=== PATIENT | female | born 1945 | race Caucasian/White ===

== ENCOUNTER 2016-12-12 19:30 | Observation (INO) | payer MEDICARE ==
[2016-12-12] MEDS ORDERED: NS 0.9% 1000 ML* 1,000 ML IV SCH ×2 (19:45→23:00)
--- NOTE | 2016-12-12 20:39 | RAD ---
INDICATION: Fever COMPARISON: May 06, 2007 TECHNIQUE: An AP portable view obtained at 2003 hours is submitted. FINDINGS: Bones/Soft Tissues: There are no acute bony findings. Cardiomediastinal: The cardiomediastinal silhouette is normal. Lungs: There are no infiltrates. Pleura: There are no pleural effusions. Other: None IMPRESSION: NO ACTIVE DISEASE.
[2016-12-12 20:57] LABS: Urine Bacteria 2+ (Absent); Urine Bilirubin Negative (Negative); Urine Glucose Negative (Negative); Urine Nitrite Positive (Negative)
[2016-12-12] MEDS ORDERED: Acetaminophen TAB* 325 MG PO ONE (21:40)
[2016-12-12] MEDS ORDERED: cefTRIAXone(*) 1 GM in NS 0.9% 50 ML* 50 ML IVPB ONE (21:41)
[2016-12-12 21:55] LABS: ALT 6 U/L (7-52); AST 10 U/L (13-39); Alkaline Phosphatase 39 U/L (34-104); Anion Gap 7 mmol/L (2-11); BUN/Creatinine Ratio 30.4 (8-20); Blood Urea Nitrogen 21 mg/dL (6-24); C Reactive Protein 29.93 mg/L (< 5.00); CO2 Carbon Dioxide 20 mmol/L (22-32); Chloride 107 mmol/L (101-111); Creatine Kinase 29 U/L (10-223); EGFR African American 107.9 (>60); EGFR Non-African American 83.9 (>60); Globulin 3.1 g/dL (2-4); Glucose 104 mg/dL (70-100); Lipase 24 U/L (11.0-82.0); Magnesium 1.6 mg/dL (1.9-2.7); Potassium 3.6 mmol/L (3.5-5.0); Sodium 134 mmol/L (133-145); Total Protein 6.1 g/dL (6.4-8.9)
[2016-12-12 22:07] LABS: Ammonia 38 mol/L (16-53)
[2016-12-12 22:11] LABS: B Type Natriuretic Peptide 46 pg/mL
[2016-12-12 22:15] LABS: Hematocrit 37 % (35-47); Hemoglobin 11.9 g/dl (12.0-16.0); Mean Corpuscular HGB Conc 32 g/dl (31-36); Mean Corpuscular Hemoglobin 30 pg (27-31); Mean Corpuscular Volume 93 fL (80-97); Mean Platelet Volume 9 um3 (7.4-10.4); Red Cell Distribution Width 15 % (10.5-15); White Blood Count 14.8 10^3/ul (3.5-10.8)
[2016-12-12 22:17] LABS: Acetaminophen < 15 mcg/mL
[2016-12-12 22:25] LABS: TSH (Thyroid Stimulating Horm) 0.46 mcIU/mL (0.34-5.60)
[2016-12-12] MEDS ORDERED: Albuterol 2.5 MG/3 ML NEB.SOL* (0.083%) INH PRN (22:51)
[2016-12-12] MEDS ORDERED: Acetaminophen TAB* 325 MG PO PRN (22:51)
[2016-12-12] MEDS ORDERED: Ondansetron INJ* 2 MG/ML VIAL IV PRN (22:52)
[2016-12-12] MEDS ORDERED: CMCS: Melatonin (NF) 3 MG TAB PO PRN (22:52)
[2016-12-12] MEDS ORDERED: Magnesium Sulfate 2 GM IV* 2 GM/50 ML BAG IVPB ONE (22:52)
[2016-12-12] MEDS ORDERED: Nicotine Inhaler* 10 MG AMP INH PRN (22:52)
[2016-12-12 23:14] LABS: Troponin I 0.01 ng/mL (<0.04)
--- NOTE | 2016-12-13 01:23 | ED ---
sujit Reno Timothy, scribed for Mike Zambrano MD on 12/12/16 at 2220 . Neurological HPI - HPI Summary HPI Summary: Naa Tilley is a 71 yo female presenting to [facility] with unwitnessed seizure at 1830 today, with a Hx of seizure. Her is present in room and states that he found her S/P seizure on the floor and Pt was disoriented and had knocked some pictures off the wall and was unable to stand. Her last seizure was 4-5 months ago. She denies missing any doses of her medication, but her states that she had not taken it this morning and was not as mobile as she usually is. He states that Pt was confused and said she had taken her medications this morning though she had not, and that Pt was also moderately confused yesterday, but was normal 12/10/16. Her gave her her daily medications before her seizure episode. Her states that she had not had a fever until today. Her notes some urinary frequency, but Pt denies any dysuria, diarrhea, rashes, RÍOS or other Sx. Her consulted her PCP before presenting to [facility] due to Pt inability to stand. Her MHx includes seizures, hysterectomy, arthritis. - History of Current Complaint Chief Complaint: EDSeizure Stated Complaint: CONVULSIONS Time Seen by Provider: 12/12/16 22:16 Last Known Well Date: 12/10/16 Hx Obtained From: Patient Onset/Duration: Sudden Onset, Resolved Timing: Intermittent Episodes Lasting: Onset Severity: Moderate Current Severity: Mild Seizure Severity: Moderate Number of Seizures: 1 Neurological Deficit Location: Generalized Pain Intensity: 0 Pain Scale Used: 0-10 Numeric Character: Confusion, Other: - seizure, syncope Episode Lasting: Seconds/Minutes Number of Episodes: 1 Syncope Context: Unwitnessed Frequency: Episodes x___ - 1, Episodes Lasting ____ (in Mins/Days/Weeks/Years) - several minutes Seizure Character: Generalized Associated Signs and Symptoms: Positive: Confusion, Fever - Allergy/Home Medications Allergies/Adverse Reactions: Allergies Allergy/AdvReac Type Severity Reaction Status Date / Time No Known Allergies Allergy Verified 06/12/16 15:22 PMH/Surg Hx/FS Hx/Imm Hx Endocrine/Hematology History: Denies: Hx Diabetes Cardiovascular History: Denies: Hx Hypertension, Hx Pacemaker/ICD History: Denies: Hx Renal Disease Musculoskeletal History: Reports: Hx Arthritis - FINGERS Denies: Hx Rheumatoid Arthritis, Hx Osteoporosis Sensory History: Reports: Hx Cataracts, Hx Contacts or Glasses - GLASSES Denies: Hx Hearing Aid Opthamlomology History: Reports: Hx Cataracts, Hx Contacts or Glasses - GLASSES Neurological History: Reports: Hx Seizures - HX OF LAST ABOUT 1 YEAR AGO Psychiatric History: Denies: Hx Panic Disorder - Cancer History Hx Chemotherapy: No Hx Radiation Therapy: No - Surgical History Surgery Procedure, Year, and Place: HYSTERECTOMY Hx Anesthesia Reactions: No Infectious Disease History: Denies: Traveled Outside the [place] in Last 30 Days - Social History Alcohol Use: None Substance Use Type: Reports: None Smoking Status (MU): Heavy Every Day Tobacco Smoker Amount Used/How Often: 1 1/2 PPD X 53 YEARS Have You Smoked in the Last Year: Yes Review of Systems Positive: Fever Eyes: Negative ENT: Negative Cardiovascular: Negative Respiratory: Negative Gastrointestinal: Negative Negative: Diarrhea Positive: frequency. Negative: dysuria Musculoskeletal: Negative Skin: Negative Negative: Rash Neurological: Other - seizure, difficulty ambulating, confusion Positive: Weakness - inability to stand, Syncope. Negative: Headache Psychological: Normal All Other Systems Reviewed And Are Negative: Yes Physical Exam Triage Information Reviewed: Yes Vital Signs On Initial Exam: Initial Vitals BP 134/68 12/12/16 19:40 Vital Signs Reviewed: Yes Appearance: Positive: No Pain Distress, Well-Nourished, Ill-Appearing - mildly Skin: Positive: Warm, Skin Color Reflects Adequate Perfusion, Dry Head/Face: Positive: Normal Head/Face Inspection Eyes: Positive: EOMI, CRISTHIAN ENT: Positive: Normal ENT inspection, TMs normal Neck: Positive: Supple, Nontender Respiratory/Lung Sounds: Positive: Breath Sounds Present, Rhonchi - mild Cardiovascular: Positive: Tachycardia Abdomen Description: Positive: Nontender, Soft Bowel Sounds: Positive: Present Musculoskeletal: Positive: Normal, Strength/ROM Intact Neurological: Positive: Normal, Sensory/Motor Intact, Alert, Oriented to Person Place, Time, Other - no focal deficits, however Pt is mildly confused.. Negative: Focal Deficit @ Psychiatric: Positive: Affect/Mood Appropriate Diagnostics - Vital Signs Vital Signs Temp Pulse Resp BP Pulse Ox 12/12/16 20:19 104 F 12/12/16 20:00 113 20 129/66 97 12/12/16 19:42 116 96 12/12/16 19:40 134/68 - Laboratory Lab Results: Lab Results 12/12/16 12/12/16 12/12/16 Range/Units 20:42 21:30 21:30 INR (Anticoag Therapy) 0.96 (0.89-1.11) APTT 25.3 L (26.0-36.3) seconds Sodium 134 (133-145) mmol/L Potassium 3.6 (3.5-5.0) mmol/L Chloride 107 (101-111) mmol/L Carbon Dioxide 20 L (22-32) mmol/L Anion Gap 7 (2-11) mmol/L BUN 21 (6-24) mg/dL Creatinine 0.69 (0.51-0.95) mg/dL Est GFR ( Amer) 107.9 (>60) Est GFR (Non-Af Amer) 83.9 (>60) BUN/Creatinine Ratio 30.4 H (8-20) Glucose 104 H (70-100) mg/dL Lactic Acid (0.5-2.0) mmol/L Calcium 9.0 (8.6-10.3) mg/dL Magnesium 1.6 L (1.9-2.7) mg/dL Total Bilirubin 0.20 (0.2-1.0) mg/dL AST 10 L (13-39) U/L ALT 6 L (7-52) U/L Alkaline Phosphatase 39 (34-104) U/L Ammonia (16-53) mol/L Total Creatine Kinase 29 (10-223) U/L CK-MB (CK-2) Pending Troponin I Pending C-Reactive Protein 29.93 H (< 5.00) mg/L B-Natriuretic Peptide ( - 100) pg/mL Total Protein 6.1 L (6.4-8.9) g/dL Albumin 3.0 L (3.2-5.2) g/dL Globulin 3.1 (2-4) g/dL Albumin/Globulin Ratio 1.0 (1-3) Lipase 24 (11.0-82.0) U/L TSH Pending Urine Color Yellow Urine Appearance Cloudy Urine pH 5.0 (5-9) Ur Specific [place] 1.015 (1.010-1.030) Urine Protein 1+(30 mg/dl) H (Negative) Urine Ketones Negative (Negative) Urine Blood 2+ H (Negative) Urine Nitrate Positive H (Negative) Urine Bilirubin Negative (Negative) Urine Urobilinogen Negative (Negative) Ur Leukocyte Esterase 3+ H (Negative) Urine WBC (Auto) 3+(>20/hpf) H (Absent) Urine RBC (Auto) 3+(>10/hpf) H (Absent) Ur Squamous Epith Cells Present H (Absent) Urine Bacteria 2+ H (Absent) Urine Glucose Negative (Negative) Acetaminophen Pending Valproic Acid Pending 12/12/16 12/12/16 Range/Units 21:30 21:30 INR (Anticoag Therapy) (0.89-1.11) APTT (26.0-36.3) seconds Sodium (133-145) mmol/L Potassium (3.5-5.0) mmol/L Chloride (101-111) mmol/L Carbon Dioxide (22-32) mmol/L Anion Gap (2-11) mmol/L BUN (6-24) mg/dL Creatinine (0.51-0.95) mg/dL Est GFR ( Amer) (>60) Est GFR (Non-Af Amer) (>60) BUN/Creatinine Ratio (8-20) Glucose (70-100) mg/dL Lactic Acid 0.5 (0.5-2.0) mmol/L Calcium (8.6-10.3) mg/dL Magnesium (1.9-2.7) mg/dL Total Bilirubin (0.2-1.0) mg/dL AST (13-39) U/L ALT (7-52) U/L Alkaline Phosphatase (34-104) U/L Ammonia 38 (16-53) mol/L Total Creatine Kinase (10-223) U/L CK-MB (CK-2) Troponin I C-Reactive Protein (< 5.00) mg/L B-Natriuretic Peptide 46 ( - 100) pg/mL Total Protein (6.4-8.9) g/dL Albumin (3.2-5.2) g/dL Globulin (2-4) g/dL Albumin/Globulin Ratio (1-3) Lipase (11.0-82.0) U/L TSH Urine Color Urine Appearance Urine pH (5-9) Ur Specific [place] (1.010-1.030) Urine Protein (Negative) Urine Ketones (Negative) Urine Blood (Negative) Urine Nitrate (Negative) Urine Bilirubin (Negative) Urine Urobilinogen (Negative) Ur Leukocyte Esterase (Negative) Urine WBC (Auto) (Absent) Urine RBC (Auto) (Absent) Ur Squamous Epith Cells (Absent) Urine Bacteria (Absent) Urine Glucose (Negative) Acetaminophen Valproic Acid Result Diagrams: 12/12/16 22:10 12/12/16 21:30 Lab Statement: Any lab studies that have been ordered have been reviewed, and results considered in the medical decision making process. - Radiology CXR Xray Interpretation: No Acute Changes - IMPRESSION: NO ACTIVE DISEASE. Radiology Interpretation Completed By: Radiologist - EKG 2007 Cardiac Rate: Tachycardia - 109 BPM EKG Interpretation: Sinus tachycardia @109 BPM, flipped T-waves in III, AVF, V4- V6 no ectopy Course/Dx - Course Assessment/Plan: Naa Tilley is a 71 yo female presenting to [facility] with unwitnessed seizure at 1830 today accompanied by confusion and fever. Her medication list is reviewed this visit. In the ED course she received ceftriaxone, tylenol, and IV fluids. Her EKG sinus tachycardia and flipped T- waves in III, AVF, and V4-V6. Her CXR suggests no active disease. After clinical examination and review of her lab and imaging studies, as well as discussion with Dr. Ibarra, she will be admitted to [facility] for further observation, evaluation, and treatment. NO CRITICAL CARE TIME. ADMIT HOSPITALIST STABLE. - Diagnoses Provider Diagnoses: UTI (urinary tract infection), Seizure - Physician Notifications Discussed Care Of Patient With: Kingsley Ibarra - Discussed Pt condition, accepts Pt for admission Time Discussed With Above Provider: 22:39 Instructed by Provider To: Admit As Inpatient Discharge - Discharge Plan Condition: Stable Disposition: ADMITTED TO [facility] The documentation as recorded by the sujit faustin Timothy accurately reflects the service I personally performed and the decisions made by me, Mike Zambrano MD.
[2016-12-13] MEDS ORDERED: Mouth Piece, Nicotine* 1 EACH CARTRIDGE INH ONE (03:00)
--- NOTE | 2016-12-13 05:36 | HP ---
H&P (Free Text) History and Physical: PCP: Julio Nguyễn MD Date/Time of Evaluation: 12/12/2016 2245 CC: increased confusion HPI: Mrs Tilley is a 71YO female HX dementia who typically functions well independently. This AM her and a friend noticed she seemed "a bit off" clarified to mean mildly increased confusion, but otherwise not issues. Sometime after noon he went to work in the garage and returned to find her on the floor generally weak and unable to get up. She did not recall falling, how she arrived there, and was more confused, but had no complaints of pain or obvious injuries. Her called her PCP who advised ED evaluation. PMedHx seizure disorder HX peritonitis 2nd uterine perforation w/ IUD HLD dementia osteoporosis Ambulatory Orders Alendronate Sodium [Fosamax-] 70 mg PO WEEKLY 05/25/15 Atorvastatin* [Lipitor*] 10 mg PO DAILY 05/25/15 Calcium Carbonate-Vitamin D [Calcium 600 + D] 1 tab PO 05/25/15 Divalproex Sodium [Depakote] 2 tab PO QPM 05/25/15 Divalproex Sodium [Depakote] 250 mg PO QAM 05/25/15 Donepezil TAB* [Aricept TAB*] 5 mg PO 05/25/15 Ibuprofen TAB* [Motrin TAB*] 800 mg PO BID PRN 05/25/15 Multi Complete 05/25/15 Multiple Vitamins W/ Minerals [Ocuvite [facility] Formul] 1 cap PO DAILY Allergies No Known Allergies Allergy (Verified 06/12/16 15:22) PSurgHx appendectomy SocHx: 1PPD cigarettes w/ ~50PYHX, no alcohol or recreational drugs; lives with her ; full, needs revisiting FamHx: unobtainable ROS: as above, otherwise reviewed and all were negative Constitutional: NAD, normally developed, well-nourished elderly white female vitals: Vital Signs Temp 36.3 C 12/13/16 02:18 Pulse 85 12/13/16 02:18 Resp 16 12/13/16 02:18 BP 124/61 12/13/16 02:18 Pulse Ox 96 12/13/16 02:18 Intake & Output 12/12/16 12/12/16 12/13/16 11:59 23:59 11:59 Intake Total 100 Output Total 150 Balance 100 -150 Weight 56.926 kg Intake: IV Fluids 100 Output: Urine 150 HEENM: atraumatic; sclera/conjunctiva: non-icteric/clear; hearing: clinically mildly decreased; oropharynx: clear, mucosa tacky Neck: soft tissue: no nuchal rigidity; thyroid: normal Pulmonary: clear to auscultation bilaterally, good aeration, no accessory muscle use CV: RR/RR, normal S1S2, no carotid bruit, no jugular venous distention, 2+ B DP/ PT, no edema Abdominal: soft, non-distended, non-tender, no rebound/guarding/rigidity, normoactive bowel sounds, no hepatosplenomegaly or masses, no costovertebral angle tenderness Musculoskeletal: general: grossly intact; gait: stable Integumental: normal appearance and texture of exposed skin Psychiatric orientation: AA&O to PPS affect: calm mood: cooperative eye contact: fair to poor content: unreliable responses: timely insight: fair to poor Testing: Lab Results 12/12/16 12/12/16 12/12/16 Range/Units 20:42 21:30 21:30 WBC (3.5-10.8) 10^3/ul RBC (4.0-5.4) 10^6/ul Hgb (12.0-16.0) g/dl Hct (35-47) % MCV (80-97) fL MCH (27-31) pg MCHC (31-36) g/dl RDW (10.5-15) % Plt Count (150-450) 10^3/ul MPV (7.4-10.4) um3 Neut % (Auto) (38-83) % Lymph % (Auto) (25-47) % [place] % (Auto) (1-9) % Eos % (Auto) (0-6) % Baso % (Auto) (0-2) % Absolute Neuts (auto) (1.5-7.7) 10^3/ul Absolute Lymphs (auto) (1.0-4.8) 10^3/ul Absolute Monos (auto) (0-0.8) 10^3/ul Absolute Eos (auto) (0-0.6) 10^3/ul Absolute Basos (auto) (0-0.2) 10^3/ul Absolute Nucleated RBC 10^3/ul Nucleated RBC % INR (Anticoag Therapy) 0.96 (0.89-1.11) APTT 25.3 L (26.0-36.3) seconds Sodium 134 (133-145) mmol/L Potassium 3.6 (3.5-5.0) mmol/L Chloride 107 (101-111) mmol/L Carbon Dioxide 20 L (22-32) mmol/L Anion Gap 7 (2-11) mmol/L BUN 21 (6-24) mg/dL Creatinine 0.69 (0.51-0.95) mg/dL Est GFR ( Amer) 107.9 (>60) Est GFR (Non-Af Amer) 83.9 (>60) BUN/Creatinine Ratio 30.4 H (8-20) Glucose 104 H (70-100) mg/dL Lactic Acid (0.5-2.0) mmol/L Calcium 9.0 (8.6-10.3) mg/dL Magnesium 1.6 L (1.9-2.7) mg/dL Total Bilirubin 0.20 (0.2-1.0) mg/dL AST 10 L (13-39) U/L ALT 6 L (7-52) U/L Alkaline Phosphatase 39 (34-104) U/L Ammonia (16-53) mol/L Total Creatine Kinase 29 (10-223) U/L CK-MB (CK-2) 0.6 (0.6-6.3) ng/mL Troponin I 0.01 (<0.04) ng/mL C-Reactive Protein 29.93 H (< 5.00) mg/L B-Natriuretic Peptide ( - 100) pg/mL Total Protein 6.1 L (6.4-8.9) g/dL Albumin 3.0 L (3.2-5.2) g/dL Globulin 3.1 (2-4) g/dL Albumin/Globulin Ratio 1.0 (1-3) Lipase 24 (11.0-82.0) U/L Procalcitonin (<0.6) ng/mL TSH 0.46 (0.34-5.60) mcIU/mL Urine Color Yellow Urine Appearance Cloudy Urine pH 5.0 (5-9) Ur Specific [place] 1.015 (1.010-1.030) Urine Protein 1+(30 mg/dl) H (Negative) Urine Ketones Negative (Negative) Urine Blood 2+ H (Negative) Urine Nitrate Positive H (Negative) Urine Bilirubin Negative (Negative) Urine Urobilinogen Negative (Negative) Ur Leukocyte Esterase 3+ H (Negative) Urine WBC (Auto) 3+(>20/hpf) H (Absent) Urine RBC (Auto) 3+(>10/hpf) H (Absent) Ur Squamous Epith Cells Present H (Absent) Urine Bacteria 2+ H (Absent) Urine Glucose Negative (Negative) Acetaminophen < 15 mcg/mL Valproic Acid 67.0 (50-100) mcg/mL 12/12/16 12/12/16 12/12/16 Range/Units 21:30 21:30 21:30 WBC (3.5-10.8) 10^3/ul RBC (4.0-5.4) 10^6/ul Hgb (12.0-16.0) g/dl Hct (35-47) % MCV (80-97) fL MCH (27-31) pg MCHC (31-36) g/dl RDW (10.5-15) % Plt Count (150-450) 10^3/ul MPV (7.4-10.4) um3 Neut % (Auto) (38-83) % Lymph % (Auto) (25-47) % [place] % (Auto) (1-9) % Eos % (Auto) (0-6) % Baso % (Auto) (0-2) % Absolute Neuts (auto) (1.5-7.7) 10^3/ul Absolute Lymphs (auto) (1.0-4.8) 10^3/ul Absolute Monos (auto) (0-0.8) 10^3/ul Absolute Eos (auto) (0-0.6) 10^3/ul Absolute Basos (auto) (0-0.2) 10^3/ul Absolute Nucleated RBC 10^3/ul Nucleated RBC % INR (Anticoag Therapy) (0.89-1.11) APTT (26.0-36.3) seconds Sodium (133-145) mmol/L Potassium (3.5-5.0) mmol/L Chloride (101-111) mmol/L Carbon Dioxide (22-32) mmol/L Anion Gap (2-11) mmol/L BUN (6-24) mg/dL Creatinine (0.51-0.95) mg/dL Est GFR ( Amer) (>60) Est GFR (Non-Af Amer) (>60) BUN/Creatinine Ratio (8-20) Glucose (70-100) mg/dL Lactic Acid 0.5 (0.5-2.0) mmol/L Calcium (8.6-10.3) mg/dL Magnesium (1.9-2.7) mg/dL Total Bilirubin (0.2-1.0) mg/dL AST (13-39) U/L ALT (7-52) U/L Alkaline Phosphatase (34-104) U/L Ammonia 38 (16-53) mol/L Total Creatine Kinase (10-223) U/L CK-MB (CK-2) (0.6-6.3) ng/mL Troponin I (<0.04) ng/mL C-Reactive Protein (< 5.00) mg/L B-Natriuretic Peptide 46 ( - 100) pg/mL Total Protein (6.4-8.9) g/dL Albumin (3.2-5.2) g/dL Globulin (2-4) g/dL Albumin/Globulin Ratio (1-3) Lipase (11.0-82.0) U/L Procalcitonin < 0.1 (<0.6) ng/mL TSH (0.34-5.60) mcIU/mL Urine Color Urine Appearance Urine pH (5-9) Ur Specific [place] (1.010-1.030) Urine Protein (Negative) Urine Ketones (Negative) Urine Blood (Negative) Urine Nitrate (Negative) Urine Bilirubin (Negative) Urine Urobilinogen (Negative) Ur Leukocyte Esterase (Negative) Urine WBC (Auto) (Absent) Urine RBC (Auto) (Absent) Ur Squamous Epith Cells (Absent) Urine Bacteria (Absent) Urine Glucose (Negative) Acetaminophen mcg/mL Valproic Acid (50-100) mcg/mL 12/12/16 Range/Units 22:10 WBC 14.8 H (3.5-10.8) 10^3/ul RBC 4.00 (4.0-5.4) 10^6/ul Hgb 11.9 L (12.0-16.0) g/dl Hct 37 (35-47) % MCV 93 (80-97) fL MCH 30 (27-31) pg MCHC 32 (31-36) g/dl RDW 15 (10.5-15) % Plt Count 246 (150-450) 10^3/ul MPV 9 (7.4-10.4) um3 Neut % (Auto) 78.5 (38-83) % Lymph % (Auto) 9.2 L (25-47) % Greene % (Auto) 12.0 H (1-9) % Eos % (Auto) 0 (0-6) % Baso % (Auto) 0.3 (0-2) % Absolute Neuts (auto) 11.6 H (1.5-7.7) 10^3/ul Absolute Lymphs (auto) 1.4 (1.0-4.8) 10^3/ul Absolute Monos (auto) 1.8 H (0-0.8) 10^3/ul Absolute Eos (auto) 0 (0-0.6) 10^3/ul Absolute Basos (auto) 0 (0-0.2) 10^3/ul Absolute Nucleated RBC 0.01 10^3/ul Nucleated RBC % 0.1 INR (Anticoag Therapy) (0.89-1.11) APTT (26.0-36.3) seconds Sodium (133-145) mmol/L Potassium (3.5-5.0) mmol/L Chloride (101-111) mmol/L Carbon Dioxide (22-32) mmol/L Anion Gap (2-11) mmol/L BUN (6-24) mg/dL Creatinine (0.51-0.95) mg/dL Est GFR ( Amer) (>60) Est GFR (Non-Af Amer) (>60) BUN/Creatinine Ratio (8-20) Glucose (70-100) mg/dL Lactic Acid (0.5-2.0) mmol/L Calcium (8.6-10.3) mg/dL Magnesium (1.9-2.7) mg/dL Total Bilirubin (0.2-1.0) mg/dL AST (13-39) U/L ALT (7-52) U/L Alkaline Phosphatase (34-104) U/L Ammonia (16-53) mol/L Total Creatine Kinase (10-223) U/L CK-MB (CK-2) (0.6-6.3) ng/mL Troponin I (<0.04) ng/mL C-Reactive Protein (< 5.00) mg/L B-Natriuretic Peptide ( - 100) pg/mL Total Protein (6.4-8.9) g/dL Albumin (3.2-5.2) g/dL Globulin (2-4) g/dL Albumin/Globulin Ratio (1-3) Lipase (11.0-82.0) U/L Procalcitonin (<0.6) ng/mL TSH (0.34-5.60) mcIU/mL Urine Color Urine Appearance Urine pH (5-9) Ur Specific [place] (1.010-1.030) Urine Protein (Negative) Urine Ketones (Negative) Urine Blood (Negative) Urine Nitrate (Negative) Urine Bilirubin (Negative) Urine Urobilinogen (Negative) Ur Leukocyte Esterase (Negative) Urine WBC (Auto) (Absent) Urine RBC (Auto) (Absent) Ur Squamous Epith Cells (Absent) Urine Bacteria (Absent) Urine Glucose (Negative) Acetaminophen mcg/mL Valproic Acid (50-100) mcg/mL ECG, personally reviewed: sinus tachycardia rate 109, diffuse non-specific ST-T changes CXR, personally reviewed: IMPRESSION: NO ACTIVE DISEASE. Impression: 71F presenting with increased confusion and fall ? syncope vs seizure DIAGNOSIS & PLAN Primary confusion 2nd UTI : IV ceftriaxone : blood & urine CXs : IVFs : supportive care suspect seizure vs doubt syncope : HX seizure disorder, last seizure ~4 months ago : lowered seizure threshold 2nd fever & infection : divalproex level therapeutic, continue : seizure precautions Secondary tobacco use disorder : suspect undiagnosed COPD : albuterol nebs PRN : mometasone/formoterol : tiotropium HLD : continue atorvastatin dementia : continue donepezil osteoporosis : hold alendronate for now Admission Rational: inpatient for UTI & AMS, ? seizure vs syncope; at high risk of rapid decompensation in outpatient setting DVTp: SCDs Code Status: full, needs revisiting HCP:
[2016-12-13] MEDS ORDERED: Omeprazole CAP* 20 MG PO SCH (06:00)
[2016-12-13 06:33] LABS: Hematocrit 32 % (35-47); Hemoglobin 10.7 g/dl (12.0-16.0); Mean Corpuscular HGB Conc 33 g/dl (31-36); Mean Corpuscular Hemoglobin 31 pg (27-31); Mean Corpuscular Volume 92 fL (80-97); Mean Platelet Volume 9 um3 (7.4-10.4); Red Blood Count 3.49 10^6/ul (4.0-5.4); Red Cell Distribution Width 14 % (10.5-15); White Blood Count 10.5 10^3/ul (3.5-10.8)
[2016-12-13 06:48] LABS: BUN/Creatinine Ratio 25.8 (8-20); Calcium 8.5 mg/dL (8.6-10.3); EGFR Non-African American 94.9 (>60); Potassium 3.3 mmol/L (3.5-5.0)
[2016-12-13 08:33] LABS: Magnesium 2.5 mg/dL (1.9-2.7)
[2016-12-13] MEDS ORDERED: Spiriva Inhaler DEVICE* 1 EACH DEVICE INH ONE (09:00)
[2016-12-13] MEDS ORDERED: Tiotropium CAP.INH* CAP.INH/18 MCG INH SCH (09:00)
[2016-12-13] MEDS ORDERED: Mometasone/Formoter 200/5 MDI INH SCH (09:00)
[2016-12-13] MEDS ORDERED: Docusate CAP* 100 MG PO SCH (09:00)
--- NOTE | 2016-12-13 10:16 | PN ---
Progress Note - Progress Note SOAP: Subjective: [This is a 71 yo white female with PMH of seizure disorder, dementia, 50 pack year smoking, hyperlipidemia, and osteoporosis that presented to ER last night after being found on the floor in her home by her with weakness and inability to get off the floor. Patient denies today remembering how she fell or being found by her and is not sure how long she was laying there. She complains of a diffuse RÍOS that has been off and on since admission but is relieved with Tylenol. Patient states that she has been experiencing some intermittent chest pain that is unrelated to exertion and does not radiate. Patient admits to some confusion. After speaking with patients , patient was mildly confused yesterday morning which was significantly worse last night after being found on the floor. He believes that today she is back to her baseline. She denies pain elsewhere, palpitations, SOB, sweats, chills, n/v/d/c , changes in vision or hearing. After conversation with her , he states that he brought her medications in this morning and gave them to her. He seemed unsure about which ones were given as he did not bring in medication bottles. It sounds like her gave her regular home doses of ibuprofen, aricept, lipitor, depakote, and anacin this morning and was unsure about her fosamax. After speaking with nursing staff, patient was not scheduled any morning medication except colace which she refused , so patient did not receive any duplicate medications. Talked with about the hospital providing medication to Mrs. Tilley and to not bring in any other home medications. He agreed to be compliant. ] Objective: Active medications: Acetaminophen (Tylenol Tab*) 650 mg PO Q6H PRN PRN Reason: FEVER/PAIN Albuterol (Ventolin 2.5 Mg/3 Ml Neb.Tina*) 2.5 mg INH Q2H PRN PRN Reason: SOB/WHEEZING Docusate Sodium (Colace Cap*) 200 mg PO BID PENDING SALE TO [facility] Last Admin: 12/13/16 09:39 Dose: Not Given Sodium Chloride (Ns 0.9% 1000 Ml*) 1,000 mls @ 125 mls/hr IV PER RATE PENDING SALE TO [facility] Last Admin: 12/13/16 02:29 Dose: 125 mls/hr Ceftriaxone Sodium 1,000 mg/ (Sodium Chloride) 50 mls @ 200 mls/hr IVPB Q24H PENDING SALE TO [facility] Melatonin (Melatonin (Nf)) 3 mg PO BEDTIME PRN; Protocol PRN Reason: Sleep Mometasone Furoate/Formoterol Fumar (Dulera 200/5 Mdi*) 2 puff INH BID PENDING SALE TO [facility] Last Admin: 12/13/16 09:51 Dose: Not Given Nicotine (Nicotine Inhaler*) 10 mg INH Q2H PRN PRN Reason: CRAVING Omeprazole (Prilosec Cap*) 20 mg PO DAILY@0600 PENDING SALE TO [facility] Last Admin: 12/13/16 06:51 Dose: Not Given Ondansetron HCl (Zofran Inj*) 4 mg IV Q6H PRN PRN Reason: NAUSEA Tiotropium [place] (Spiriva Cap.Inh*) 1 cap INH DAILY PENDING SALE TO [facility] Last Admin: 12/13/16 09:51 Dose: Not Given Lipitor 10 mg PO daily Depakote 250 mg two tablets in the AM and two tablets qhs Aricept 5 mg PO daily Allergies: NKDA Vital Signs Temp Pulse Resp BP Pulse Ox 97.4 F 77 16 124/61 93 12/13/16 02:18 12/13/16 09:50 12/13/16 09:50 12/13/16 02:18 12/13/16 09:50 General: Patient is alert and oriented X3 elderly white female in NAD HEENT: atraumatic, normocephalic. Mucus membranes mildly dry. Lungs: Mild wheezing noted across lung wu, no crackles or rhonchi. Heart: RRR, No murmurs, rubs, or gallops Abdomen: Normoactive bowels sounds Extremities: No edema, Pedal pulses are 2+ bilaterally Neuro: Alert and oriented X3 WBC 10.5 10^3/ul (3.5-10.8) 12/13/16 06:18 RBC 3.49 10^6/ul (4.0-5.4) L 12/13/16 06:18 Hgb 10.7 g/dl (12.0-16.0) L 12/13/16 06:18 Hct 32 % (35-47) L 12/13/16 06:18 MCV 92 fL (80-97) 12/13/16 06:18 MCH 31 pg (27-31) 12/13/16 06:18 MCHC 33 g/dl (31-36) 12/13/16 06:18 RDW 14 % (10.5-15) 12/13/16 06:18 Plt Count 227 10^3/ul (150-450) 12/13/16 06:18 MPV 9 um3 (7.4-10.4) 12/13/16 06:18 Neut % (Auto) 73.3 % (38-83) 12/13/16 06:18 Lymph % (Auto) 13.4 % (25-47) L 12/13/16 06:18 Kay % (Auto) 12.9 % (1-9) H 12/13/16 06:18 Eos % (Auto) 0.1 % (0-6) 12/13/16 06:18 Baso % (Auto) 0.3 % (0-2) 12/13/16 06:18 Absolute Neuts (auto) 7.7 10^3/ul (1.5-7.7) 12/13/16 06:18 Absolute Lymphs (auto) 1.4 10^3/ul (1.0-4.8) 12/13/16 06:18 Absolute Monos (auto) 1.4 10^3/ul (0-0.8) H 12/13/16 06:18 Absolute Eos (auto) 0 10^3/ul (0-0.6) 12/13/16 06:18 Absolute Basos (auto) 0 10^3/ul (0-0.2) 12/13/16 06:18 Absolute Nucleated RBC 0 10^3/ul 12/13/16 06:18 Nucleated RBC % 0 12/13/16 06:18 INR (Anticoag Therapy) 0.96 (0.89-1.11) 12/12/16 21:30 APTT 25.3 seconds (26.0-36.3) L 12/12/16 21:30 Sodium 137 mmol/L (133-145) 12/13/16 06:18 Potassium 3.3 mmol/L (3.5-5.0) L 12/13/16 06:18 Chloride 109 mmol/L (101-111) 12/13/16 06:18 Carbon Dioxide 23 mmol/L (22-32) 12/13/16 06:18 Anion Gap 5 mmol/L (2-11) 12/13/16 06:18 BUN 16 mg/dL (6-24) 12/13/16 06:18 Creatinine 0.62 mg/dL (0.51-0.95) 12/13/16 06:18 Est GFR ( Amer) 122.0 (>60) 12/13/16 06:18 Est GFR (Non-Af Amer) 94.9 (>60) 12/13/16 06:18 BUN/Creatinine Ratio 25.8 (8-20) H 12/13/16 06:18 Glucose 93 mg/dL (70-100) 12/13/16 06:18 Lactic Acid 0.5 mmol/L (0.5-2.0) 12/12/16 21:30 Calcium 8.5 mg/dL (8.6-10.3) L 12/13/16 06:18 Magnesium 2.5 mg/dL (1.9-2.7) 12/13/16 06:18 Total Bilirubin 0.20 mg/dL (0.2-1.0) 12/12/16 21:30 AST 10 U/L (13-39) L 12/12/16 21:30 ALT 6 U/L (7-52) L 12/12/16 21:30 Alkaline Phosphatase 39 U/L (34-104) 12/12/16 21:30 Ammonia 38 mol/L (16-53) 12/12/16 21:30 Total Creatine Kinase 29 U/L (10-223) 12/12/16 21:30 CK-MB (CK-2) 0.6 ng/mL (0.6-6.3) 12/12/16 21:30 Troponin I 0.01 ng/mL (<0.04) 12/12/16 21:30 C-Reactive Protein 29.93 mg/L (< 5.00) H 12/12/16 21:30 B-Natriuretic Peptide 46 pg/mL (-100) 12/12/16 21:30 Total Protein 6.1 g/dL (6.4-8.9) L 12/12/16 21:30 Albumin 3.0 g/dL (3.2-5.2) L 12/12/16 21:30 Globulin 3.1 g/dL (2-4) 12/12/16 21:30 Albumin/Globulin Ratio 1.0 (1-3) 12/12/16 21:30 Lipase 24 U/L (11.0-82.0) 12/12/16 21:30 Procalcitonin < 0.1 ng/mL (<0.6) 12/12/16 21:30 TSH 0.46 mcIU/mL (0.34-5.60) 12/12/16 21:30 Urine Color Yellow 12/12/16 20:42 Urine Appearance Cloudy 12/12/16 20:42 Urine pH 5.0 (5-9) 12/12/16 20:42 Ur Specific [place] 1.015 (1.010-1.030) 12/12/16 20:42 Urine Protein 1+(30 mg/dl) (Negative) H 12/12/16 20:42 Urine Ketones Negative (Negative) 12/12/16 20:42 Urine Blood 2+ (Negative) H 12/12/16 20:42 Urine Nitrate Positive (Negative) H 12/12/16 20:42 Urine Bilirubin Negative (Negative) 12/12/16 20:42 Urine Urobilinogen Negative (Negative) 12/12/16 20:42 Ur Leukocyte Esterase 3+ (Negative) H 12/12/16 20:42 Urine WBC (Auto) 3+(>20/hpf) (Absent) H 12/12/16 20:42 Urine RBC (Auto) 3+(>10/hpf) (Absent) H 12/12/16 20:42 Ur Squamous Epith Cells Present (Absent) H 12/12/16 20:42 Urine Bacteria 2+ (Absent) H 12/12/16 20:42 Urine Glucose Negative (Negative) 12/12/16 20:42 Acetaminophen < 15 mcg/mL 12/12/16 21:30 Valproic Acid 67.0 mcg/mL (50-100) 12/12/16 21:30 CXR: No active disease EKG: Sinus tachycardia ] Assessment/Plan: 1) Confusion secondary to UTI: Continue IV ceftriaxone. Still awaiting results from blood and urine cultures. Continue IV fluids, patient denies any urinary symptoms at this time. 2) Seizure Disorder: Depakote level is therapeutic at 67. Continue with Depakote and patient is on seizure precautions. 3) Hypokelemia: Magnesium sulfate 2gm given for correction. 4) Tobacco use disorder: Suspect underlying undiagnosed COPD patient has 50 pack year smoking and still currently smokes about a pack a day. Continue with Dulera, albuterol nebs PRN, and spiriva. 5) Hyperlipidemia: Continue lipitor. 6) Dementia: Continue Aricept. 7) Osteoporosis: Hold Fosamax. 8) Code Status: Full code 9) Health care proxy:
[2016-12-13 10:27] VITALS: BP 103/64
[2016-12-13] MEDS ORDERED: Potassium Chlor TAB* 20 MEQ TAB.ER PO ONE (11:30)
--- NOTE | 2016-12-13 12:55 | DS ---
CC: Dr. Mili Nguyễn * DATE OF ADMISSION: 12/12/2016. DATE OF DISCHARGE: 12/13/2016. PRIMARY CARE PROVIDER: Dr. Mili Nguyễn. DISCHARGING PROVIDER: ANNETTE Batista. SUPERVISING PHYSICIAN: Dr. Loreta Laureano * (dictated by ANNETTE Batista). PRIMARY DISCHARGE DIAGNOSIS: Urinary tract infection causing acute encephalopathy which has since resolved. SECONDARY DISCHARGE DIAGNOSES: 1. Seizure disorder. 2. Tobacco use disorder. 3. Dementia. 4. Hyperlipidemia. DISCHARGE MEDICATIONS: 1. Atorvastatin 10 mg p.o. daily. 2. Depakote 500 mg p.o. twice daily. 3. Bactrim DS one tablet p.o. twice daily times 4 days. Medication changes: Bactrim times 4 days. HOSPITAL IMAGING: Chest x-ray shows no acute process. HOSPITAL COURSE: This is a 71-year-old female with mild dementia at baseline, as well as a seizure disorder and hyperlipidemia who presented to the emergency department with confusion and weakness, who was febrile at the time of reaching the emergency department with evidence of a urinary tract infection and associated leukocytosis. The patient lives at home with her . They were at home together and he went out into the garage and when he came back found her on the floor and was quite weak and lethargic. He brought her to the emergency department for evaluation. Initial white blood cell count was 14,800 with a temperature of 104 degrees Fahrenheit. Urine analysis is suggestive of infection with positive nitrates, leuk esterase and white blood cells. The patient was empirically started on Ceftriaxone. She remained afebrile over night and her mental status returned to baseline in the morning per her 's report. The patient states that her weakness has resolved. She remembers very little from yesterday afternoon, but did not sustain any injuries as a part of her fall. Considered seizure as a possibility for her fall. Her lactic acid was 0.5 at the time of admission making this less likely with an obvious source of infection. Her valproic acid level was measured at the time of admission and was therapeutic. There was some concern as to whether the patient may have undiagnosed COPD given her long history of smoking, but the patient was not significantly hypoxic and had a normal lung exam. I do not see an indication to treat at this time. The patient and her are quite anxious to get home. Cultures have not returned at the time of discharge. Her white blood cell count has returned to normal and she was afebrile overnight. Will plan to discharge with empiric Bactrim. DISPOSITION: The patient is being discharged to home where she lives with her . Recommend four days of Bactrim for empiric treatment of urinary tract infection. As mentioned above, urine and blood cultures are still pending at the time of discharge. Follow-up on final culture and sensitivity results, especially from her urine is necessary to ensure appropriate treatment. Recommend follow-up with primary care provider within a week of discharge. ANNETTE BATISTA [id number]/[facility] #: [id number] MTDJordan
--- NOTE | 2016-12-13 13:04 | DS ---
DOA: 12/13/2016 DOD: 12/13/2016 Care Team: Admitting provider: Dr. Kingsley Ibarra Attending Provider: Adrian Sr PCP: Dr. Mili Nugyễn Discharge Dx: 1) Confusion secondary to UTI Secondary Dx: 1) Seizure disorder 2) Tobacco use disorder: likely undiagnosed COPD as patient has 50 year pack year smoking and currently still an active smoker. 3) Hyperlipidemia 4) Dementia 5) Osteoporosis Discharge medications: Lipitor 10 mg PO daily Depakote 250 mg two tablets in the AM and two tablets qhs Aricept 5 mg PO daily Fosamax 70 mg PO Q week Motrin 800 mg BID as needed Calcium Carbonate PO 1 tablet daily Multivitamin Bactrim 160 mg PO (double strength tablet) q 12 hrs for 5 days. Changes to home medications: Add Bactrim Imaging: EKG: Sinus Tachycardia CXR: No active disease Hospital Course: This is a 71 yo white female with PMH of seizure disorder, dementia, 50 pack year smoking, hyperlipidemia, and osteoporosis that presented to ER last night after being found on the floor in her home by her with weakness and inability to get off the floor. She was admitted with complaints of increasing confusion and she was febrile at 104 degrees Fahrenheit, tachycardic, with leukocytosis with WBC of 14.8. Her change in mental status was attributable to positive UTI on UA, and it is still unknown if patient had seizure activity that attributed to the fall but is certainly a possibility. Patient was treated empirically with IV Ceftriaxone. She denies pain elsewhere, palpitations, SOB, sweats, chills, n/v/d/c, changes in vision or hearing. Patient denies today remembering how she fell or being found by her and is not sure how long she was laying there but states her weakness has resolved. Patient's believes that today she is back to her cognitive baseline. Patients Depakote level was therapeutic, troponins and ammonia levels were negative and patient was treated with magnesium sulfate for a potassium of 3.3. Sodium of 137, Chloride of 109, BUN of 16, Creatinine of 0.62, Carbon dioxide of 23, lactic acid of 0.5, and magnesium of 2.5. Patient's H&H 10.7/32 demonstrating normocytic anemia and INR therapeutic. Follow up plan/disposition: Patient is to be discharged home to her and her IV Ceftriaxone will be switched to PO Bactrim for 5 days and instructed to finish course of antibiotic. She is to resume all home medications. It is to note that blood cultures and urine culture/sensitivity is still pending and should followed up on to ensure adequate treatment. Patient is to follow up with PCP in the next week.
[2016-12-13] MEDS ORDERED: cefTRIAXone VIAL(*) 1,000 MG in NS 0.9% 50 ML* 50 ML IVPB SCH (21:00)
== END 2016-12-13 12:30 | disposition home or self-care (01) ==
LOC: ED 19:30 → MED 12-13 00:37 → INTOOBSV 12-13 00:37
PROVIDERS: ADMIT Hospitalist; ATTEND Internal Medicine
DX: N39.0 Urinary tract infection, site not specified (principal); R41.0 Disorientation, unspecified; G40.909 Epilepsy, unspecified, not intractable, without status epilepticus; E78.5 Hyperlipidemia, unspecified; M81.0 Age-related osteoporosis without current pathological fracture; F17.210 Nicotine dependence, cigarettes, uncomplicated; F03.90 Unspecified dementia, unspecified severity, without behavioral disturbance, psychotic disturbance, mood disturbance, and anxiety; R53.1 Weakness; E87.6 Hypokalemia; R07.9 Chest pain, unspecified; R00.0 Tachycardia, unspecified; Z79.899 Other long term (current) drug therapy
CPT/HCPCS: 36415; 71010; 80048; 80053; 80164; 80329; 81003; 81015; 82140; 82550; 82553; 83605; 83690; 83735; 83880; 84145; 84443; 84484; 85025; 85610; 85730; 86140; 87040; 87077; 87086; 87186; 93005; 96365; 99283; 99406; A9270-GY; G0378; G0480; J0696

== ENCOUNTER 2017-03-21 17:04 | Inpatient (IN) | payer OTHER ==
[2017-03-21] MEDS ORDERED: Levofloxacin 750 MG IVPREMIX(* 750 MG/150 ML BAG IVPB ONE (18:32)
[2017-03-21] MEDS ORDERED: NS 0.9% 1000 ML* 2,000 ML IV ONE (18:32)
--- NOTE | 2017-03-21 18:58 | RAD ---
INDICATION: Sepsis. COMPARISON: Comparison is made with a prior study from December 12, 2016. TECHNIQUE: A portable view of the chest was obtained. FINDINGS: The heart appears mildly enlarged and unchanged from the prior exam. The lungs are clear. No pleural effusion is seen. IMPRESSION: NO EVIDENCE FOR ACUTE DISEASE.
[2017-03-21 19:39] LABS: Hematocrit 34 % (35-47); Hemoglobin 11.1 g/dl (12.0-16.0); Mean Corpuscular HGB Conc 33 g/dl (31-36); Mean Corpuscular Hemoglobin 31 pg (27-31); Mean Corpuscular Volume 92 fL (80-97); Mean Platelet Volume 9 um3 (7.4-10.4); Red Blood Count 3.63 10^6/ul (4.0-5.4); Red Cell Distribution Width 16 % (10.5-15); White Blood Count 12.5 10^3/ul (3.5-10.8)
[2017-03-21 20:04] LABS: Albumin 3.3 g/dL (3.2-5.2); BUN/Creatinine Ratio 18.1 (8-20); C Reactive Protein 45.58 mg/L (< 5.00); Calcium 9.2 mg/dL (8.6-10.3); EGFR African American 75.5 (>60); EGFR Non-African American 58.7 (>60); Globulin 3.5 g/dL (2-4); Potassium 3.9 mmol/L (3.5-5.0); Total Bilirubin 0.3 mg/dL (0.2-1.0); Total Protein 6.8 g/dL (6.4-8.9)
[2017-03-21 21:49] LABS: Urine Bacteria 1+ (Absent); Urine Bilirubin Negative (Negative); Urine Glucose Negative (Negative); Urine Nitrite Positive (Negative)
--- NOTE | 2017-03-21 22:33 | HP ---
H&P (Free Text) History and Physical: PCP: Julio Nguyễn MD Date/Time of Evaluation: 03/21/2017 2130 CC: lethagy, generalized weakness HPI: Mrs Tilley is a 71YO female HX dementia who typically functions well independently. Her and son relate symptoms similar to her presentation in November of this year for UTI. Last night she began developing increased fatigue , worse this AM and also developing generalized weakness, lethargy, confusion described as being unaware of her surroundings, not being able to follow family requests, etc. She has not complained of pain, F/C, N/V, chest pain, SOB, sweats , changes in urine or bowel, or other issues. Her appetite has been poor for ~2 days. PMedHx seizure disorder HX peritonitis 2nd uterine perforation w/ IUD HLD dementia osteoporosis UTI w/ AMS Ambulatory Orders Atorvastatin* [Lipitor 10 MG*] 10 mg PO DAILY 05/25/15 Ibuprofen TAB* [Motrin TAB* 800 MG] 800 mg PO BID PRN 05/25/[address] TAB(*) [Depakote DR TAB(*)] 500 mg PO BID 12/13/16 Allergies No Known Allergies Allergy (Verified 06/12/16 15:22) PSurgHx appendectomy SocHx: 1PPD cigarettes w/ ~50PYHX, no alcohol or recreational drugs; lives with her ; full FamHx: unobtainable ROS: as above, otherwise reviewed and all were negative Constitutional: NAD, normally developed, well-nourished elderly white female vitals: Vital Signs Temp 37.4 C 03/21/17 17:21 Pulse 93 03/21/17 19:00 Resp 25 03/21/17 19:30 BP 114/85 03/21/17 19:30 Pulse Ox 93 03/21/17 19:00 Intake & Output 03/20/17 03/21/17 03/21/17 23:59 11:59 23:59 Intake Total 150 Balance 150 Intake: IV Fluids 150 HEENM: atraumatic; sclera/conjunctiva: non-icteric/mildly injected; hearing: clinically mildly decreased; oropharynx: clear, mucosa tacky Neck: soft tissue: no nuchal rigidity; thyroid: normal Pulmonary: clear to auscultation bilaterally, good aeration, no accessory muscle use CV: RR/RR, normal S1S2, no carotid bruit, no jugular venous distention, 2+ B DP/ PT, no edema Abdominal: soft, non-distended, non-tender, no rebound/guarding/rigidity, normoactive bowel sounds, no hepatosplenomegaly or masses, no costovertebral angle tenderness Musculoskeletal: general: grossly intact, no palpable tenderness Integumental: normal appearance and texture of exposed skin Psychiatric orientation: AA&O to PP, loosely to situation affect: calm mood: cooperative eye contact: fair to poor content: unreliable responses: timely insight: fair to poor Testing: Lab Results 03/21/17 03/21/17 03/21/17 Range/Units 19:20 19:20 19:20 WBC 12.5 H (3.5-10.8) 10^3/ul RBC 3.63 L (4.0-5.4) 10^6/ul Hgb 11.1 L (12.0-16.0) g/dl Hct 34 L (35-47) % MCV 92 (80-97) fL MCH 31 (27-31) pg MCHC 33 (31-36) g/dl RDW 16 H (10.5-15) % Plt Count 279 (150-450) 10^3/ul MPV 9 (7.4-10.4) um3 Neut % (Auto) 81.4 (38-83) % Lymph % (Auto) 8.0 L (25-47) % [place] % (Auto) 10.4 H (1-9) % Eos % (Auto) 0 (0-6) % Baso % (Auto) 0.2 (0-2) % Absolute Neuts (auto) 10.1 H (1.5-7.7) 10^3/ul Absolute Lymphs (auto) 1.0 (1.0-4.8) 10^3/ul Absolute Monos (auto) 1.3 H (0-0.8) 10^3/ul Absolute Eos (auto) 0 (0-0.6) 10^3/ul Absolute Basos (auto) 0 (0-0.2) 10^3/ul Absolute Nucleated RBC 0.01 10^3/ul Nucleated RBC % 0.1 INR (Anticoag Therapy) 1.00 (0.89-1.11) Sodium 134 (133-145) mmol/L Potassium 3.9 (3.5-5.0) mmol/L Chloride 102 (101-111) mmol/L Carbon Dioxide 25 (22-32) mmol/L Anion Gap 7 (2-11) mmol/L BUN 17 (6-24) mg/dL Creatinine 0.94 (0.51-0.95) mg/dL Est GFR ( Amer) 75.5 (>60) Est GFR (Non-Af Amer) 58.7 (>60) BUN/Creatinine Ratio 18.1 (8-20) Glucose 94 (70-100) mg/dL Lactic Acid (0.5-2.0) mmol/L Calcium 9.2 (8.6-10.3) mg/dL Total Bilirubin 0.30 (0.2-1.0) mg/dL AST 8 L (13-39) U/L ALT 4 L (7-52) U/L Alkaline Phosphatase 48 (34-104) U/L Troponin I 0.00 (<0.04) ng/mL C-Reactive Protein 45.58 H (< 5.00) mg/L Total Protein 6.8 (6.4-8.9) g/dL Albumin 3.3 (3.2-5.2) g/dL Globulin 3.5 (2-4) g/dL Albumin/Globulin Ratio 0.9 L (1-3) Urine Color Urine Appearance Urine pH (5-9) Ur Specific [place] (1.010-1.030) Urine Protein (Negative) Urine Ketones (Negative) Urine Blood (Negative) Urine Nitrate (Negative) Urine Bilirubin (Negative) Urine Urobilinogen (Negative) Ur Leukocyte Esterase (Negative) Urine WBC (Auto) (Absent) Urine RBC (Auto) (Absent) Ur Squamous Epith Cells (Absent) Ur Transition Epith Cell (Absent) Urine Bacteria (Absent) Urine Glucose (Negative) Urine Ascorbic Acid (Negative) 03/21/17 03/21/17 Range/Units 19:20 21:05 WBC (3.5-10.8) 10^3/ul RBC (4.0-5.4) 10^6/ul Hgb (12.0-16.0) g/dl Hct (35-47) % MCV (80-97) fL MCH (27-31) pg MCHC (31-36) g/dl RDW (10.5-15) % Plt Count (150-450) 10^3/ul MPV (7.4-10.4) um3 Neut % (Auto) (38-83) % Lymph % (Auto) (25-47) % [place] % (Auto) (1-9) % Eos % (Auto) (0-6) % Baso % (Auto) (0-2) % Absolute Neuts (auto) (1.5-7.7) 10^3/ul Absolute Lymphs (auto) (1.0-4.8) 10^3/ul Absolute Monos (auto) (0-0.8) 10^3/ul Absolute Eos (auto) (0-0.6) 10^3/ul Absolute Basos (auto) (0-0.2) 10^3/ul Absolute Nucleated RBC 10^3/ul Nucleated RBC % INR (Anticoag Therapy) (0.89-1.11) Sodium (133-145) mmol/L Potassium (3.5-5.0) mmol/L Chloride (101-111) mmol/L Carbon Dioxide (22-32) mmol/L Anion Gap (2-11) mmol/L BUN (6-24) mg/dL Creatinine (0.51-0.95) mg/dL Est GFR ( Amer) (>60) Est GFR (Non-Af Amer) (>60) BUN/Creatinine Ratio (8-20) Glucose (70-100) mg/dL Lactic Acid 0.7 (0.5-2.0) mmol/L Calcium (8.6-10.3) mg/dL Total Bilirubin (0.2-1.0) mg/dL AST (13-39) U/L ALT (7-52) U/L Alkaline Phosphatase (34-104) U/L Troponin I (<0.04) ng/mL C-Reactive Protein (< 5.00) mg/L Total Protein (6.4-8.9) g/dL Albumin (3.2-5.2) g/dL Globulin (2-4) g/dL Albumin/Globulin Ratio (1-3) Urine Color Yellow Urine Appearance Cloudy Urine pH 6.0 (5-9) Ur Specific [place] 1.012 (1.010-1.030) Urine Protein 1+(30 mg/dl) H (Negative) Urine Ketones Negative (Negative) Urine Blood Negative (Negative) Urine Nitrate Positive H (Negative) Urine Bilirubin Negative (Negative) Urine Urobilinogen Negative (Negative) Ur Leukocyte Esterase 3+ H (Negative) Urine WBC (Auto) 3+(>20/hpf) H (Absent) Urine RBC (Auto) Trace(0-2/hpf) (Absent) Ur Squamous Epith Cells Present H (Absent) Ur Transition Epith Cell Present H (Absent) Urine Bacteria 1+ H (Absent) Urine Glucose Negative (Negative) Urine Ascorbic Acid * H (Negative) CXR, personally reviewed: IMPRESSION: NO EVIDENCE FOR ACUTE DISEASE. Impression: 71F presenting generalized fatigue, generalized weakness, & AMS found to have a UTI and meet both SIRS and qSOFA criteria for sepsis DIAGNOSIS & PLAN Primary sepsis (tachycardia, leukocytosis, tachypnea, AMS) 2nd UTI : IV levofloxacin initiated in ED, will continue : blood & urine CXs : IVFs : supportive care seizure disorder : nursing reported brief seizure after arrival to floor : continue valproic acid : current level subtherapeutic, additional 250mg PO dose ordered : seizure precautions Secondary COPD : smoking cessation recommended, unable to fully grasp, needs revisiting : albuterol nebs PRN : mometasone/formoterol : tiotropium HLD : continue atorvastatin dementia : no acute issues Admission Rational: inpatient for sepsis 2nd UTI requiring IVFs & IV ABX in patient at significant risk of rapid decompensation making outpatient setting inappropriate DVTp: heparin SQ & SCDs Code Status: full HCP:
[2017-03-21] MEDS ORDERED: Albuterol 2.5 MG/3 ML NEB.SOL* (0.083%) INH PRN (22:36)
[2017-03-21] MEDS ORDERED: Nicotine Inhaler* 10 MG AMP INH PRN (22:37)
[2017-03-21] MEDS ORDERED: Ondansetron INJ* 2 MG/ML VIAL IV PRN (22:38)
[2017-03-21] MEDS ORDERED: Mouth Piece, Nicotine* 1 EACH CARTRIDGE INH ONE (23:00)
[2017-03-22] MEDS: NS 0.9% 1000 ML* 1,000 ML IV SCH ×2 (00:05→14:21)
[2017-03-22] MEDS ORDERED: LORazepam INJ* 2 MG/ML 1 ML VIAL IV PRN (01:30)
[2017-03-22] MEDS: Acetaminophen TAB* 325 MG PO PRN ×2 (02:22→11:02)
[2017-03-22] MEDS ORDERED: Divalproex ER TAB(*) 250 MG PO ONE (03:27)
[2017-03-22] MEDS: Heparin VIAL(*) 5000 UNITS/ML VIAL (FIVE THOUSAND) SUBCUT SCH ×3 (05:23→22:05)
[2017-03-22] MEDS: Omeprazole CAP* 20 MG PO SCH (05:23)
[2017-03-22 05:32] LABS: Hematocrit 30 % (35-47); Mean Corpuscular HGB Conc 34 g/dl (31-36); Mean Corpuscular Hemoglobin 31 pg (27-31); Mean Corpuscular Volume 92 fL (80-97); Mean Platelet Volume 8 um3 (7.4-10.4); Red Blood Count 3.21 10^6/ul (4.0-5.4); Red Cell Distribution Width 15 % (10.5-15); White Blood Count 10.7 10^3/ul (3.5-10.8)
[2017-03-22] MEDS ORDERED: oxyCODONE TAB* 5 MG TAB PO ONE (06:30)
[2017-03-22] MEDS: Divalproex DR TAB(*) 250 MG PO SCH (08:18)
[2017-03-22] MEDS: Atorvastatin* 10 MG TAB PO SCH (08:18)
[2017-03-22] MEDS: Docusate CAP* 100 MG PO SCH ×2 (08:18→22:04)
[2017-03-22] MEDS ORDERED: Spiriva Inhaler DEVICE* 1 EACH DEVICE SCH (09:00)
[2017-03-22] MEDS: Mometasone/Formoter 200/5 MDI INH SCH ×2 (09:13→20:45)
[2017-03-22] MEDS: Tiotropium CAP.INH* CAP.INH/18 MCG (USE ORDER SET !) INH SCH (09:13)
--- NOTE | 2017-03-22 13:36 | PN ---
Subjective Date of Service: 03/22/17 Interval History: Patient seen and examined at bedside. Pt denies complaints at this time. Denies fever, chills, shortness of breath, chest discomfort, N/V/D. Discussed Pt with her PCP Dr. Nguyễn and she would like us to arrange for Pt to have screening chest CT while her to eval for lung CA d/t smoking history and weight loss. Family History: Unchanged from Admission Social History: Unchanged from Admission Past Medical History: Unchanged from Admission Objective Active Medications: Acetaminophen (Tylenol Tab*) 650 mg PO Q6H PRN Reason: FEVER/PAIN Albuterol (Ventolin 2.5 Mg/3 Ml Neb.Tina*) 2.5 mg INH Q2H PRN Reason: SOB/ WHEEZING Atorvastatin Calcium (Lipitor*) 10 mg PO DAILY ANDREW Device (Tiotropium Inhaler Device*) 1 each .SEE ORDER .USE w/ SPIRIVA CAPS ANDREW Divalproex Sodium (Depakote Dr Tab(*)) 500 mg PO QPM ANDREW Divalproex Sodium (Depakote Dr Tab(*)) 250 mg PO QAM ANDREW Docusate Sodium (Colace Cap*) 200 mg PO BID ANDREW Heparin Sodium (Porcine) (Heparin Vial(*)) 5,000 units SUBCUT Q8HR ANDREW Levofloxacin/Dextrose (Levaquin 750 Mg Ivpremix(*)) 750 mg in 150 mls @ 100 mls /hr IVPB Q48H ANDREW Sodium Chloride (Ns 0.9% 1000 Ml*) 1,000 mls @ 75 mls/hr IV PER RATE ANDREW Lorazepam (Ativan Inj*) 2 mg IV ONCE PRN Reason: SEIZURES Stop: 03/23/17 01:29 Mometasone Furoate/Formoterol Fumar (Dulera 200/5 Mdi*) 2 puff INH BID ANDREW Nicotine (Nicotine Inhaler*) 10 mg INH Q2H PRN Reason: CRAVING Omeprazole (Prilosec Cap*) 20 mg PO DAILY@0600 ANDREW Tiotropium [place] (Spiriva Cap.Inh*) 1 cap INH DAILY ANDREW Vital Signs 03/21/17 03/21/17 03/21/17 22:00 22:30 23:00 Temperature Pulse Rate 88 134 93 Respiratory 22 18 26 Rate Blood Pressure 125/103 124/72 139/77 (mmHg) O2 Sat by Pulse 96 85 98 Oximetry 09/27/17 09/28/17 09/28/17 23:39 00:00 01:29 Temperature 98.9 F Pulse Rate 93 132 Respiratory 18 36 Rate Blood Pressure 135/66 154/83 (mmHg) O2 Sat by Pulse 96 96 94 Oximetry 03/22/17 03/22/17 03/22/17 03:34 06:31 08:00 Temperature 97.9 F Pulse Rate 102 Respiratory 18 19 18 Rate Blood Pressure 130/69 (mmHg) O2 Sat by Pulse 96 97 Oximetry 03/22/17 03/22/17 08:09 08:23 Temperature 97.9 F Pulse Rate 73 Respiratory 16 18 Rate Blood Pressure 106/58 (mmHg) O2 Sat by Pulse 97 Oximetry Oxygen Devices in Use Now: None Appearance: NAD, laying in bed Ears/Nose/Mouth/Throat: Mucous Membranes Moist Respiratory: Symmetrical Chest Expansion and Respiratory Effort, Clear to Auscultation Cardiovascular: NL Sounds; No Murmurs; No JVD Abdominal: NL Sounds; No Tenderness; No Distention Extremities: No Edema Skin: No Rash or Ulcers Neurological: Alert and Oriented x 3 - , mild confusion, NL Muscle Strength and Tone Lines/Tubes/Other Access: Clean, Dry and Intact Peripheral IV - site benign Nutrition: Taking PO's Result Diagrams: 03/22/17 05:12 03/21/17 19:20 Assess/Plan/Problems-Billing Assessment: Ms. Tilley is a 71 yo female with PMH significant for seizure disorder, HLD, dementia, UTI and osteoporosis who presented to the emergency room with generalized weakness, increased confusion and lethargy, and was found to have a UTI and sepsis. - Patient Problems (1) UTI (urinary tract infection) Comment: - Meeting SIRS and qSofa criteria on admission for sepsis - Afebrile and leukocytosis resolved - Urine culture pending, blood cultures negative day 1 - Continue Levaquin (2) Sepsis Comment: - No resolved, Pt nontoxic appearing - Meeting SIRS (tachycardia, leukocytosis, tachypnea) and qSofa (AMS and tachypnea)criteria on admission for sepsis - Afebrile and leukocytosis resolved - Continue Levaquin (3) Seizure disorder Code(s): G40.909 - EPILEPSY, UNSP, NOT INTRACTABLE, WITHOUT STATUS EPILEPTICUS SNOMED Code(s): 789182727 Comment: - NSG reported breif seizure on admission, no further seizure activity noted - Seizure precautions - Continue Valproic acid (4) COPD (chronic obstructive pulmonary disease) Code(s): J44.9 - CHRONIC OBSTRUCTIVE PULMONARY DISEASE, UNSPECIFIED SNOMED Code(s): 48018494 Comment: - No signs of acute exacerbation - Continue albuterol PRN, dulera and spiriva (5) HLD (hyperlipidemia) Code(s): E78.5 - HYPERLIPIDEMIA, UNSPECIFIED SNOMED Code(s): 78570412 Comment: - Continue atorvastatin (6) Dementia Code(s): F03.90 - UNSPECIFIED DEMENTIA WITHOUT BEHAVIORAL DISTURBANCE SNOMED Code(s): 76367109 Comment: - Supportive care (7) Tobacco abuse Code(s): Z72.0 - TOBACCO USE SNOMED Code(s): 140945550 Comment: - Plan for screening chest CT as outpatient at discharge (8) DVT prophylaxis Code(s): VHN0708 - SNOMED Code(s): 149141869 Comment: - SQ heparin and SCDs (9) Full code status Code(s): Z78.9 - OTHER SPECIFIED HEALTH STATUS SNOMED Code(s): 320539002 Status and Disposition: Inpatient. Discharge to home when medically stable.
[2017-03-22] MEDS ORDERED: Acetaminophen TAB* 325 MG PO PRN (13:59)
[2017-03-22] MEDS: Ibuprofen TAB* 600 MG PO PRN (15:14)
[2017-03-22] MEDS ORDERED: Divalproex DR TAB(*) 500 MG PO SCH (18:00)
[2017-03-23] MEDS: Ibuprofen TAB* 600 MG PO PRN ×2 (03:06→18:09)
[2017-03-23] MEDS: Heparin VIAL(*) 5000 UNITS/ML VIAL (FIVE THOUSAND) SUBCUT SCH ×3 (05:42→21:12)
[2017-03-23] MEDS: NS 0.9% 1000 ML* 1,000 ML IV SCH (06:03)
[2017-03-23] MEDS: Omeprazole CAP* 20 MG PO SCH (06:03)
[2017-03-23 06:08] LABS: Hematocrit 31 % (35-47); Hemoglobin 10.1 g/dl (12.0-16.0); Mean Corpuscular HGB Conc 33 g/dl (31-36); Mean Corpuscular Hemoglobin 31 pg (27-31); Mean Corpuscular Volume 93 fL (80-97); Mean Platelet Volume 9 um3 (7.4-10.4); Red Blood Count 3.29 10^6/ul (4.0-5.4); Red Cell Distribution Width 16 % (10.5-15); White Blood Count 8.6 10^3/ul (3.5-10.8)
[2017-03-23] MEDS: Mometasone/Formoter 200/5 MDI INH SCH ×2 (08:18→20:32)
[2017-03-23] MEDS: Tiotropium CAP.INH* CAP.INH/18 MCG (USE ORDER SET !) INH SCH (08:19)
[2017-03-23] MEDS: Atorvastatin* 10 MG TAB PO SCH (09:28)
[2017-03-23] MEDS: Divalproex DR TAB(*) 250 MG PO SCH (09:28)
[2017-03-23] MEDS: Docusate CAP* 100 MG PO SCH ×2 (09:28→21:13)
--- NOTE | 2017-03-23 15:40 | PN ---
Subjective Date of Service: 03/23/17 Interval History: Patient seen and examined at bedside. Pt states that she is feeling better but still feels weak. Denies fever, chills, shortness of breath, chest discomfort, N /V/D, urinary symptoms. 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 Pt's will bring her in as an outpatient if we reschedule her CT scan that wa scheduled for yesterday. Family History: Unchanged from Admission Social History: Unchanged from Admission Past Medical History: Unchanged from Admission Objective Active Medications: Acetaminophen (Tylenol Tab*) 650 mg PO Q4H PRN Reason: FEVER/PAIN Albuterol (Ventolin 2.5 Mg/3 Ml Neb.Tina*) 2.5 mg INH Q2H PRN Reason: SOB/ WHEEZING Atorvastatin Calcium (Lipitor*) 10 mg PO DAILY ANDREW Device (Tiotropium Inhaler Device*) 1 each .SEE ORDER .USE w/ SPIRIVA CAPS ANDREW Divalproex Sodium (Depakote Dr Tab(*)) 500 mg PO QPM ANDREW Divalproex Sodium (Depakote Dr Tab(*)) 250 mg PO QAM ANDREW Docusate Sodium (Colace Cap*) 200 mg PO BID ANDREW Heparin Sodium (Porcine) (Heparin Vial(*)) 5,000 units SUBCUT Q8HR ANDREW Levofloxacin/Dextrose (Levaquin 750 Mg Ivpremix(*)) 750 mg in 150 mls @ 100 mls /hr IVPB Q48H ANDREW Sodium Chloride (Ns 0.9% 1000 Ml*) 1,000 mls @ 75 mls/hr IV PER RATE ANDREW Ibuprofen (Motrin Tab*) 600 mg PO Q8H PRN Reason: PAIN Mometasone Furoate/Formoterol Fumar (Dulera 200/5 Mdi*) 2 puff INH BID ANDREW Nicotine (Nicotine Inhaler*) 10 mg INH Q2H PRN Reason: CRAVING Omeprazole (Prilosec Cap*) 20 mg PO DAILY@0600 ANDREW Tiotropium [place] (Spiriva Cap.Inh*) 1 cap INH DAILY [facility] Vital Signs 03/22/17 03/22/17 03/22/17 16:00 17:25 20:00 Temperature 97.8 F Pulse Rate 63 Respiratory 14 16 Rate Blood Pressure 109/50 (mmHg) O2 Sat by Pulse 97 97 Oximetry 03/22/17 03/22/17 03/23/17 21:40 23:03 00:00 Temperature 98.1 F 98.2 F Pulse Rate 85 83 Respiratory 18 20 Rate Blood Pressure 116/67 131/67 (mmHg) O2 Sat by Pulse 94 97 97 Oximetry 03/23/17 03/23/17 03/23/17 03:15 07:15 08:00 Temperature 98.1 F 97.9 F 97.8 F Pulse Rate 83 66 61 Respiratory 20 19 19 Rate Blood Pressure 125/63 119/58 117/47 (mmHg) O2 Sat by Pulse 98 97 97 Oximetry 03/23/17 03/23/17 03/23/17 08:08 11:19 11:29 Temperature 97.8 F 98.0 F 98.0 F Pulse Rate 61 68 68 Respiratory 15 16 16 Rate Blood Pressure 117/47 125/53 125/53 (mmHg) O2 Sat by Pulse 97 97 97 Oximetry Oxygen Devices in Use Now: None Appearance: NAD, laying in bed Ears/Nose/Mouth/Throat: Mucous Membranes Moist Respiratory: Symmetrical Chest Expansion and Respiratory Effort, Clear to Auscultation Cardiovascular: NL Sounds; No Murmurs; No JVD, RRR Abdominal: NL Sounds; No Tenderness; No Distention Extremities: No Edema Skin: No Rash or Ulcers Neurological: Alert and Oriented x 3 - , forgetful, NL Muscle Strength and Tone Lines/Tubes/Other Access: Clean, Dry and Intact Peripheral IV - site benign Nutrition: Taking PO's Result Diagrams: 03/23/17 05:43 03/21/17 19:20 Assess/Plan/Problems-Billing Assessment: Ms. Tilley is a 71 yo female with PMH significant for seizure disorder, HLD, dementia, UTI and osteoporosis who presented to the emergency room with generalized weakness, increased confusion and lethargy, and was found to have a UTI and sepsis. - Patient Problems (1) UTI (urinary tract infection) Comment: - Meeting SIRS and qSofa criteria on admission for sepsis - Afebrile and leukocytosis resolved - Urine culture ecoli 10-25k - Blood cultures negative day 2 - Continue Levaquin (2) Sepsis Comment: - No resolved, Pt nontoxic appearing - Meeting SIRS (tachycardia, leukocytosis, tachypnea) and qSofa (AMS and tachypnea)criteria on admission for sepsis - Afebrile and leukocytosis resolved - Continue Levaquin (3) Seizure disorder Code(s): G40.909 - EPILEPSY, UNSP, NOT INTRACTABLE, WITHOUT STATUS EPILEPTICUS SNOMED Code(s): 730234264 Comment: - NSG reported breif seizure on admission, no further seizure activity noted - Valproic acid level low on admission, received 250mg extra at time of admission - Seizure precautions - Continue Valproic acid (4) COPD (chronic obstructive pulmonary disease) Code(s): J44.9 - CHRONIC OBSTRUCTIVE PULMONARY DISEASE, UNSPECIFIED SNOMED Code(s): 36948943 Comment: - No signs of acute exacerbation - Continue albuterol PRN, dulera and spiriva (5) HLD (hyperlipidemia) Code(s): E78.5 - HYPERLIPIDEMIA, UNSPECIFIED SNOMED Code(s): 95636007 Comment: - Continue atorvastatin (6) Dementia Code(s): F03.90 - UNSPECIFIED DEMENTIA WITHOUT BEHAVIORAL DISTURBANCE SNOMED Code(s): 34093557 Comment: - Supportive care (7) Tobacco abuse Code(s): Z72.0 - TOBACCO USE SNOMED Code(s): 895309567 Comment: - Plan for screening chest CT as outpatient at discharge, appointment scheduled for 03/27 (8) DVT prophylaxis Code(s): SYO1983 - SNOMED Code(s): 123935649 Comment: - SQ heparin and SCDs (9) Full code status Code(s): Z78.9 - OTHER SPECIFIED HEALTH STATUS SNOMED Code(s): 558122240 Status and Disposition: Inpatient. Discharge to home when medically stable. Possibly in the AM. Pt will work on ambulation today.
--- NOTE | 2017-03-23 18:53 | ED ---
Jono Reno Benjamin, scribed for Rory Robert MD on 03/21/17 at 1832 . Altered Mental Status - HPI Summary HPI Summary: 71yo female who was dxed with UTI in January and was seemingly getting better after abx course, but now presents with weakness, fever of 101.8F, confusion, and decreased appetite. Pt also takes Depakote for epilepsy. Pt also lost 10 lb within the last year. Pt is a smoker. Pt is coughing, but this is chronic for her. - History Of Current Complaint Chief Complaint: EDAltMentalStatus Stated Complaint: WEAKNESS/CONFUSED Time Seen by Provider: 03/21/17 18:20 Hx Obtained From: Patient, Family/Seamer Panty Hose - Onset/Duration: Still Present Timing: Constant Severity Initially: Mild Severity Currently: Mild Character: Confusion Aggravating Factor(s): Nothing, Other - recnet UTI dx Alleviating Factor(s): Nothing Associated Signs And Symptoms: Positive: Weakness - Allergies/Home Medications Allergies/Adverse Reactions: Allergies Allergy/AdvReac Type Severity Reaction Status Date / Time No Known Allergies Allergy Verified 06/12/16 15:22 PMH/Surg Hx/FS Hx/Imm Hx Endocrine/Hematology History: Denies: Hx Diabetes Cardiovascular History: Reports: Hx Hypercholesterolemia Denies: Hx Hypertension, Hx Pacemaker/ICD Respiratory History: Reports: Other Respiratory Problems/Disorders - 55 year [facility] History: Reports: Other Problems/Disorders - UTIs Denies: Hx Renal Disease Musculoskeletal History: Reports: Hx Arthritis - FINGERS Denies: Hx Rheumatoid Arthritis, Hx Osteoporosis Sensory History: Reports: Hx Cataracts, Hx Contacts or Glasses - GLASSES Denies: Hx Hearing Aid Opthamlomology History: Reports: Hx Cataracts, Hx Contacts or Glasses - GLASSES Neurological History: Reports: Hx Seizures - HX OF LAST ABOUT 1 YEAR AGO Psychiatric History: Denies: Hx Panic Disorder - Cancer History Hx Chemotherapy: No Hx Radiation Therapy: No - Surgical History Surgery Procedure, Year, and Place: HYSTERECTOMY Hx Anesthesia Reactions: No Infectious Disease History: No Infectious Disease History: Denies: Traveled Outside the [place] in Last 30 Days - Family History Known Family History: Negative: Hypertension, Respiratory Disease - Social History Occupation: Retired Lives: With Family Alcohol Use: None Substance Use Type: Reports: None Smoking Status (MU): Heavy Every Day Tobacco Smoker Type: Cigarettes Amount Used/How Often: 1 1/2 PPD X 53 YEARS Length of Time of Smoking/Using Tobacco: 55 years Have You Smoked in the Last Year: Yes Review of Systems All Other Systems Reviewed And Are Negative: Yes Physical Exam Triage Information Reviewed: Yes Vital Signs On Initial Exam: Initial Vitals Temp Pulse Resp BP Pulse Ox 99.4 F 110 24 108/64 94 03/21/17 17:21 03/21/17 17:21 03/21/17 17:21 03/21/17 17:21 03/21/17 17:21 Vital Signs Reviewed: Yes Appearance: Positive: Well-Appearing, No Pain Distress, Well-Nourished Skin: Positive: Warm, Skin Color Reflects Adequate Perfusion, Dry Head/Face: Positive: Normal Head/Face Inspection Eyes: Positive: Normal, EOMI ENT: Positive: Hearing grossly normal, Pharynx normal, Other - dry oral mucosa Neck: Positive: Supple, Nontender Respiratory/Lung Sounds: Positive: Clear to Auscultation, Breath Sounds Present Cardiovascular: Positive: Pulses are Symmetrical in both Upper and Lower Extremities, Tachycardia Abdomen Description: Positive: Nontender, Soft Bowel Sounds: Positive: Present Musculoskeletal: Positive: Strength/ROM Intact Neurological: Positive: Sensory/Motor Intact, Alert, Oriented to Person Place, Time, Other - pt is mentating slowly Psychiatric: Positive: Affect/Mood Appropriate Diagnostics - Vital Signs Vital Signs Temp Pulse Resp BP Pulse Ox 03/21/17 17:21 99.4 F 110 24 108/64 94 - Laboratory Lab Results: Lab Results 03/21/17 03/21/17 03/21/17 Range/Units 19:20 19:20 19:20 WBC 12.5 H (3.5-10.8) 10^3/ul RBC 3.63 L (4.0-5.4) 10^6/ul Hgb 11.1 L (12.0-16.0) g/dl Hct 34 L (35-47) % MCV 92 (80-97) fL MCH 31 (27-31) pg MCHC 33 (31-36) g/dl RDW 16 H (10.5-15) % Plt Count 279 (150-450) 10^3/ul MPV 9 (7.4-10.4) um3 Neut % (Auto) 81.4 (38-83) % Lymph % (Auto) 8.0 L (25-47) % [place] % (Auto) 10.4 H (1-9) % Eos % (Auto) 0 (0-6) % Baso % (Auto) 0.2 (0-2) % Absolute Neuts (auto) 10.1 H (1.5-7.7) 10^3/ul Absolute Lymphs (auto) 1.0 (1.0-4.8) 10^3/ul Absolute Monos (auto) 1.3 H (0-0.8) 10^3/ul Absolute Eos (auto) 0 (0-0.6) 10^3/ul Absolute Basos (auto) 0 (0-0.2) 10^3/ul Absolute Nucleated RBC 0.01 10^3/ul Nucleated RBC % 0.1 INR (Anticoag Therapy) 1.00 (0.89-1.11) APTT (26.0-36.3) seconds Sodium 134 (133-145) mmol/L Potassium 3.9 (3.5-5.0) mmol/L Chloride 102 (101-111) mmol/L Carbon Dioxide 25 (22-32) mmol/L Anion Gap 7 (2-11) mmol/L BUN 17 (6-24) mg/dL Creatinine 0.94 (0.51-0.95) mg/dL Est GFR ( Amer) 75.5 (>60) Est GFR (Non-Af Amer) 58.7 (>60) BUN/Creatinine Ratio 18.1 (8-20) Glucose 94 (70-100) mg/dL Lactic Acid (0.5-2.0) mmol/L Calcium 9.2 (8.6-10.3) mg/dL Total Bilirubin 0.30 (0.2-1.0) mg/dL AST 8 L (13-39) U/L ALT 4 L (7-52) U/L Alkaline Phosphatase 48 (34-104) U/L Troponin I 0.00 (<0.04) ng/mL C-Reactive Protein 45.58 H (< 5.00) mg/L Total Protein 6.8 (6.4-8.9) g/dL Albumin 3.3 (3.2-5.2) g/dL Globulin 3.5 (2-4) g/dL Albumin/Globulin Ratio 0.9 L (1-3) Urine Color Urine Appearance Urine pH (5-9) Ur Specific [place] (1.010-1.030) Urine Protein (Negative) Urine Ketones (Negative) Urine Blood (Negative) Urine Nitrate (Negative) Urine Bilirubin (Negative) Urine Urobilinogen (Negative) Ur Leukocyte Esterase (Negative) Urine WBC (Auto) (Absent) Urine RBC (Auto) (Absent) Ur Squamous Epith Cells (Absent) Ur Transition Epith Cell (Absent) Urine Bacteria (Absent) Urine Glucose (Negative) Urine Ascorbic Acid (Negative) 03/21/17 03/21/17 03/21/17 Range/Units 19:20 19:20 21:05 WBC (3.5-10.8) 10^3/ul RBC (4.0-5.4) 10^6/ul Hgb (12.0-16.0) g/dl Hct (35-47) % MCV (80-97) fL MCH (27-31) pg MCHC (31-36) g/dl RDW (10.5-15) % Plt Count (150-450) 10^3/ul MPV (7.4-10.4) um3 Neut % (Auto) (38-83) % Lymph % (Auto) (25-47) % [place] % (Auto) (1-9) % Eos % (Auto) (0-6) % Baso % (Auto) (0-2) % Absolute Neuts (auto) (1.5-7.7) 10^3/ul Absolute Lymphs (auto) (1.0-4.8) 10^3/ul Absolute Monos (auto) (0-0.8) 10^3/ul Absolute Eos (auto) (0-0.6) 10^3/ul Absolute Basos (auto) (0-0.2) 10^3/ul Absolute Nucleated RBC 10^3/ul Nucleated RBC % INR (Anticoag Therapy) (0.89-1.11) APTT 30.3 (26.0-36.3) seconds Sodium (133-145) mmol/L Potassium (3.5-5.0) mmol/L Chloride (101-111) mmol/L Carbon Dioxide (22-32) mmol/L Anion Gap (2-11) mmol/L BUN (6-24) mg/dL Creatinine (0.51-0.95) mg/dL Est GFR ( Amer) (>60) Est GFR (Non-Af Amer) (>60) BUN/Creatinine Ratio (8-20) Glucose (70-100) mg/dL Lactic Acid 0.7 (0.5-2.0) mmol/L Calcium (8.6-10.3) mg/dL Total Bilirubin (0.2-1.0) mg/dL AST (13-39) U/L ALT (7-52) U/L Alkaline Phosphatase (34-104) U/L Troponin I (<0.04) ng/mL C-Reactive Protein (< 5.00) mg/L Total Protein (6.4-8.9) g/dL Albumin (3.2-5.2) g/dL Globulin (2-4) g/dL Albumin/Globulin Ratio (1-3) Urine Color Yellow Urine Appearance Cloudy Urine pH 6.0 (5-9) Ur Specific [place] 1.012 (1.010-1.030) Urine Protein 1+(30 mg/dl) H (Negative) Urine Ketones Negative (Negative) Urine Blood Negative (Negative) Urine Nitrate Positive H (Negative) Urine Bilirubin Negative (Negative) Urine Urobilinogen Negative (Negative) Ur Leukocyte Esterase 3+ H (Negative) Urine WBC (Auto) 3+(>20/hpf) H (Absent) Urine RBC (Auto) Trace(0-2/hpf) (Absent) Ur Squamous Epith Cells Present H (Absent) Ur Transition Epith Cell Present H (Absent) Urine Bacteria 1+ H (Absent) Urine Glucose Negative (Negative) Urine Ascorbic Acid * H (Negative) Result Diagrams: 03/23/17 05:43 03/21/17 19:20 Lab Statement: Any lab studies that have been ordered have been reviewed, and results considered in the medical decision making process. - Radiology CXR Xray Interpretation: No Acute Changes Radiology Interpretation Completed By: Radiologist - ED physician has reviewed the radiology report and agrees with the findings. Altered Mental Statu Course/Dx - Course Course Of Treatment: Reviewed pts list of medications and allergies. Blood pressure noted. Assessment/Plan: Ms. Tilley presented with weakness and lethargy, She met sepsis criteria on arrival and was given fluids and antibiotics. She was admitted to Dr. Ibarra. - Diagnoses Discharge Diagnoses: Sepsis, UTI (urinary tract infection) - Critical Care Time Critical Care Time: 30-74 min Discharge - Discharge Plan Condition: Stable Disposition: ADMITTED TO [facility] The documentation as recorded by the Jono faustin Benjamin accurately reflects the service I personally performed and the decisions made by me, Rory Robert MD.
[2017-03-23] MEDS ORDERED: Levofloxacin 750 MG IVPREMIX(* 750 MG/150 ML BAG IVPB SCH (20:00)
[2017-03-23] MEDS: Divalproex DR TAB(*) 500 MG PO SCH (21:13)
[2017-03-24] MEDS: Ibuprofen TAB* 600 MG PO PRN ×2 (03:52→12:24)
[2017-03-24] MEDS: Heparin VIAL(*) 5000 UNITS/ML VIAL (FIVE THOUSAND) SUBCUT SCH (05:59)
[2017-03-24] MEDS: Omeprazole CAP* 20 MG PO SCH (05:59)
[2017-03-24 06:01] LABS: Hematocrit 27 % (35-47); Hemoglobin 9.4 g/dl (12.0-16.0); Mean Corpuscular HGB Conc 34 g/dl (31-36); Mean Corpuscular Hemoglobin 32 pg (27-31); Mean Corpuscular Volume 92 fL (80-97); Mean Platelet Volume 8 um3 (7.4-10.4); Red Blood Count 2.98 10^6/ul (4.0-5.4); Red Cell Distribution Width 15 % (10.5-15); White Blood Count 6.1 10^3/ul (3.5-10.8)
[2017-03-24 07:56] VITALS: BP 154/62
[2017-03-24] MEDS: Mometasone/Formoter 200/5 MDI INH SCH (08:02)
[2017-03-24] MEDS: Tiotropium CAP.INH* CAP.INH/18 MCG (USE ORDER SET !) INH SCH (08:02)
[2017-03-24] MEDS: Divalproex DR TAB(*) 500 MG PO SCH (08:02)
[2017-03-24] MEDS: Docusate CAP* 100 MG PO SCH (08:02)
[2017-03-24] MEDS: Atorvastatin* 10 MG TAB PO SCH (08:02)
--- NOTE | 2017-03-24 11:52 | PN ---
Subjective Date of Service: 03/24/17 Interval History: Pt is feeling well. She denies any pain or SOB at this time. She feels ready to go home. Her states that her mental status is essentially back to baseline. He notes she got up and went to the bathroom this AM without any significant difficulty. Family History: Unchanged from Admission Social History: Unchanged from Admission Past Medical History: Unchanged from Admission Objective Active Medications: Acetaminophen (Tylenol Tab*) 650 mg PO Q4H PRN PRN Reason: FEVER/PAIN Last Admin: 03/24/17 08:02 Dose: 650 mg Albuterol (Ventolin 2.5 Mg/3 Ml Neb.Tina*) 2.5 mg INH Q2H PRN PRN Reason: SOB/WHEEZING Atorvastatin Calcium (Lipitor*) 10 mg PO DAILY [facility] Last Admin: 03/24/17 08:02 Dose: 10 mg Device (Tiotropium Inhaler Device*) 1 each .SEE ORDER .USE w/ SPIRIVA CAPS [facility] Divalproex Sodium (Depakote Dr Tab(*)) 500 mg PO BID [facility] Last Admin: 03/24/17 08:02 Dose: 500 mg Docusate Sodium (Colace Cap*) 200 mg PO BID [facility] Last Admin: 03/24/17 08:02 Dose: 200 mg Heparin Sodium (Porcine) (Heparin Vial(*)) 5,000 units SUBCUT Q8HR [facility] Last Admin: 03/24/17 05:59 Dose: 5,000 units Levofloxacin/Dextrose (Levaquin 750 Mg Ivpremix(*)) 750 mg in 150 mls @ 100 mls /hr IVPB Q48H [facility] Last Admin: 03/23/17 20:01 Dose: 100 mls/hr Ibuprofen (Motrin Tab*) 600 mg PO Q8H PRN PRN Reason: PAIN Last Admin: 03/24/17 03:52 Dose: 600 mg Mometasone Furoate/Formoterol Fumar (Dulera 200/5 Mdi*) 2 puff INH BID [facility] Last Admin: 03/24/17 08:02 Dose: Not Given Nicotine (Nicotine Inhaler*) 10 mg INH Q2H PRN PRN Reason: CRAVING Omeprazole (Prilosec Cap*) 20 mg PO DAILY@0600 [facility] Last Admin: 03/24/17 05:59 Dose: 20 mg Tiotropium [place] (Spiriva Cap.Inh*) 1 cap INH DAILY [facility] Last Admin: 03/24/17 08:02 Dose: Not Given Vital Signs 03/23/17 03/23/17 03/23/17 15:28 19:14 19:42 Temperature 98.5 F 99.2 F Pulse Rate 90 92 Respiratory 16 16 18 Rate Blood Pressure 130/67 154/76 (mmHg) O2 Sat by Pulse 97 98 Oximetry 03/23/17 03/24/17 03/24/17 23:29 00:00 04:51 Temperature 98.3 F 97.9 F Pulse Rate 74 74 Respiratory 16 16 Rate Blood Pressure 139/60 151/70 (mmHg) O2 Sat by Pulse 98 98 99 Oximetry 03/24/17 03/24/17 07:49 07:57 Temperature 97.9 F Pulse Rate 74 Respiratory 16 16 Rate Blood Pressure 154/62 (mmHg) O2 Sat by Pulse 100 Oximetry Oxygen Devices in Use Now: None Appearance: Elderly female lying in bed sleeping, awakens to voice, NAD Eyes: No Scleral Icterus Ears/Nose/Mouth/Throat: Mucous Membranes Moist Respiratory: Symmetrical Chest Expansion and Respiratory Effort, Clear to Auscultation Cardiovascular: NL Sounds; No Murmurs; No JVD, RRR, No Edema Abdominal: NL Sounds; No Tenderness; No Distention Extremities: No Clubbing, Cyanosis Skin: No Rash or Ulcers, No Nodules or Sclerosis Neurological: - - mildly confused Result Diagrams: 03/24/17 05:53 03/21/17 19:20 Additional Lab and Data: Lab Results 03/21/17 03/21/17 03/21/17 Range/Units 19:20 19:20 19:20 WBC 12.5 H (3.5-10.8) 10^3/ul RBC 3.63 L (4.0-5.4) 10^6/ul Hgb 11.1 L (12.0-16.0) g/dl Hct 34 L (35-47) % MCV 92 (80-97) fL MCH 31 (27-31) pg MCHC 33 (31-36) g/dl RDW 16 H (10.5-15) % Plt Count 279 (150-450) 10^3/ul MPV 9 (7.4-10.4) um3 Neut % (Auto) 81.4 (38-83) % Lymph % (Auto) 8.0 L (25-47) % [place] % (Auto) 10.4 H (1-9) % Eos % (Auto) 0 (0-6) % Baso % (Auto) 0.2 (0-2) % Absolute Neuts (auto) 10.1 H (1.5-7.7) 10^3/ul Absolute Lymphs (auto) 1.0 (1.0-4.8) 10^3/ul Absolute Monos (auto) 1.3 H (0-0.8) 10^3/ul Absolute Eos (auto) 0 (0-0.6) 10^3/ul Absolute Basos (auto) 0 (0-0.2) 10^3/ul Absolute Nucleated RBC 0.01 10^3/ul Nucleated RBC % 0.1 INR (Anticoag Therapy) 1.00 (0.89-1.11) APTT (26.0-36.3) seconds Sodium 134 (133-145) mmol/L Potassium 3.9 (3.5-5.0) mmol/L Chloride 102 (101-111) mmol/L Carbon Dioxide 25 (22-32) mmol/L Anion Gap 7 (2-11) mmol/L BUN 17 (6-24) mg/dL Creatinine 0.94 (0.51-0.95) mg/dL Est GFR ( Amer) 75.5 (>60) Est GFR (Non-Af Amer) 58.7 (>60) BUN/Creatinine Ratio 18.1 (8-20) Glucose 94 (70-100) mg/dL Lactic Acid (0.5-2.0) mmol/L Calcium 9.2 (8.6-10.3) mg/dL Total Bilirubin 0.30 (0.2-1.0) mg/dL AST 8 L (13-39) U/L ALT 4 L (7-52) U/L Alkaline Phosphatase 48 (34-104) U/L Troponin I 0.00 (<0.04) ng/mL C-Reactive Protein 45.58 H (< 5.00) mg/L Total Protein 6.8 (6.4-8.9) g/dL Albumin 3.3 (3.2-5.2) g/dL Globulin 3.5 (2-4) g/dL Albumin/Globulin Ratio 0.9 L (1-3) Urine Color Urine Appearance Urine pH (5-9) Ur Specific [place] (1.010-1.030) Urine Protein (Negative) Urine Ketones (Negative) Urine Blood (Negative) Urine Nitrate (Negative) Urine Bilirubin (Negative) Urine Urobilinogen (Negative) Ur Leukocyte Esterase (Negative) Urine WBC (Auto) (Absent) Urine RBC (Auto) (Absent) Ur Squamous Epith Cells (Absent) Ur Transition Epith Cell (Absent) Urine Bacteria (Absent) Urine Glucose (Negative) Urine Ascorbic Acid (Negative) 03/21/17 03/21/17 03/21/17 Range/Units 19:20 19:20 21:05 WBC (3.5-10.8) 10^3/ul RBC (4.0-5.4) 10^6/ul Hgb (12.0-16.0) g/dl Hct (35-47) % MCV (80-97) fL MCH (27-31) pg MCHC (31-36) g/dl RDW (10.5-15) % Plt Count (150-450) 10^3/ul MPV (7.4-10.4) um3 Neut % (Auto) (38-83) % Lymph % (Auto) (25-47) % [place] % (Auto) (1-9) % Eos % (Auto) (0-6) % Baso % (Auto) (0-2) % Absolute Neuts (auto) (1.5-7.7) 10^3/ul Absolute Lymphs (auto) (1.0-4.8) 10^3/ul Absolute Monos (auto) (0-0.8) 10^3/ul Absolute Eos (auto) (0-0.6) 10^3/ul Absolute Basos (auto) (0-0.2) 10^3/ul Absolute Nucleated RBC 10^3/ul Nucleated RBC % INR (Anticoag Therapy) (0.89-1.11) APTT 30.3 (26.0-36.3) seconds Sodium (133-145) mmol/L Potassium (3.5-5.0) mmol/L Chloride (101-111) mmol/L Carbon Dioxide (22-32) mmol/L Anion Gap (2-11) mmol/L BUN (6-24) mg/dL Creatinine (0.51-0.95) mg/dL Est GFR ( Amer) (>60) Est GFR (Non-Af Amer) (>60) BUN/Creatinine Ratio (8-20) Glucose (70-100) mg/dL Lactic Acid 0.7 (0.5-2.0) mmol/L Calcium (8.6-10.3) mg/dL Total Bilirubin (0.2-1.0) mg/dL AST (13-39) U/L ALT (7-52) U/L Alkaline Phosphatase (34-104) U/L Troponin I (<0.04) ng/mL C-Reactive Protein (< 5.00) mg/L Total Protein (6.4-8.9) g/dL Albumin (3.2-5.2) g/dL Globulin (2-4) g/dL Albumin/Globulin Ratio (1-3) Urine Color Yellow Urine Appearance Cloudy Urine pH 6.0 (5-9) Ur Specific [place] 1.012 (1.010-1.030) Urine Protein 1+(30 mg/dl) H (Negative) Urine Ketones Negative (Negative) Urine Blood Negative (Negative) Urine Nitrate Positive H (Negative) Urine Bilirubin Negative (Negative) Urine Urobilinogen Negative (Negative) Ur Leukocyte Esterase 3+ H (Negative) Urine WBC (Auto) 3+(>20/hpf) H (Absent) Urine RBC (Auto) Trace(0-2/hpf) (Absent) Ur Squamous Epith Cells Present H (Absent) Ur Transition Epith Cell Present H (Absent) Urine Bacteria 1+ H (Absent) Urine Glucose Negative (Negative) Urine Ascorbic Acid * H (Negative) Assess/Plan/Problems-Billing Ms. Tilley is a 71 yo female with PMHx significant for seizure disorder, HLD, dementia, UTI and osteoporosis who presented to the emergency room with generalized weakness, increased confusion and lethargy, and was found to have a UTI and sepsis. - Patient Problems (1) Sepsis Current Visit: Yes Status: Acute Comment: On admission the patient was septic secondary to UTI. She was septic both by sepsis 2 and sepsis 3 criteria. Sepsis has now resolved. (2) UTI (urinary tract infection) Current Visit: Yes Status: Acute Comment: The patient's urine culture grew E coli but only 10-25,000cfu. Given her improvement in mentation will continue to treat the patient for UTI but change from levaquin to keflex. The patient is now feeling ready to go home. (3) Seizure disorder Current Visit: Yes Status: Chronic Code(s): G40.909 - EPILEPSY, UNSP, NOT INTRACTABLE, WITHOUT STATUS EPILEPTICUS SNOMED Code(s): 487114412 Comment: Shortly after admission the patient was thought to have had a seizure. She received an extra dose of valproic acid. She will continue on her usual home dose. (4) COPD (chronic obstructive pulmonary disease) Current Visit: Yes Status: Chronic Code(s): J44.9 - CHRONIC OBSTRUCTIVE PULMONARY DISEASE, UNSPECIFIED SNOMED Code(s): 13155975 Comment: No signs of acute exacerbation. She does not take any inhalers at home-will not send her out on any now. (5) Dementia Current Visit: Yes Status: Chronic Code(s): F03.90 - UNSPECIFIED DEMENTIA WITHOUT BEHAVIORAL DISTURBANCE SNOMED Code(s): 17050216 Comment: Continue supportive care. (6) HLD (hyperlipidemia) Current Visit: Yes Status: Chronic Code(s): E78.5 - HYPERLIPIDEMIA, UNSPECIFIED SNOMED Code(s): 04196898 Comment: Continue atorvastatin. (7) Tobacco abuse Current Visit: No Status: Chronic Code(s): Z72.0 - TOBACCO USE SNOMED Code (s): 809631258 Comment: Plan for screening chest CT as outpatient at discharge, appointment scheduled for 03/27 (8) DVT prophylaxis Current Visit: Yes Status: Acute Code(s): EVO0351 - SNOMED Code(s): 657469283 Comment: SQ heparin and SCDs (9) Full code status Current Visit: Yes Status: Acute Code(s): Z78.9 - OTHER SPECIFIED HEALTH STATUS SNOMED Code(s): 946714881 Status and Disposition: d/c home
--- NOTE | 2017-03-24 13:58 | DS ---
CC: Dr. Nguyễn * DISCHARGE SUMMARY: DATE OF ADMISSION: 03/21/17 DATE OF DISCHARGE: 03/24/17 PRIMARY CARE PROVIDER: Dr. Nguyễn. PRINCIPAL DIAGNOSES: 1. Altered mental status post likely secondary to urinary tract infection and dehydration - improved. 2. Sepsis. SECONDARY DIAGNOSES: 1. Dementia. 2. Chronic obstructive pulmonary disease. 3. Seizure disorder. 4. Hyperlipidemia. 5. Tobacco abuse. DISCHARGE MEDICATIONS: 1. Depakote DR 500 mg p.o. b.i.d. 2. Ibuprofen 800 mg p.o. b.i.d. p.r.n. pain. 3. Lipitor 10 mg p.o. daily. 4. Keflex 500 mg p.o. b.i.d. x10 doses. HOSPITAL COURSE: Ms. Tilley is a 71-year-old female with history of dementia, COPD, and hyperlipidemia, who presents to the emergency room with altered mental status and weakness. The patient's provided the bulk of the history on admission. He noted that she had been more confused and unable to follow commands that she ordinarily could, and was noted to be quite weak and unable to ambulate. On admission patient was felt to be septic secondary to a urinary tract infection. The patient was admitted on started on IV fluids and Levaquin. With this the patient did have improvement in her mental status and weakness. At discharge patient's mental status is very close back to baseline per her . The patient has been doing some ambulation though she is noted to still be weak. Visiting nurses with home PT is being set up. Shortly after admission, the patient was felt to have had a seizure on the medical floor. The patient was given an extra dose of Depakote. She has since been seizure-free. The patient should continue on her home dose of Depakote and follow up with Dr. Fang at her next scheduled appointment. FOLLOWUP CONCERNS: The patient is being discharged home today, 03/24/17. She is to follow up with Dr. Nguyễn on 03/28/17, at 2:10 p.m. ACTIVITY: Activity level is as tolerated. DIET: Regular. CONDITION ON DISCHARGE: Stable. TIME SPENT: Thirty-five minutes were spent discharging this patient. [id number]/[facility] #: [id number] [facility]
== END 2017-03-24 13:15 | disposition home health service (06) | DRG 872 ==
LOC: ED 17:04 → MED 21:33
PROVIDERS: ADMIT Hospitalist; ATTEND Hospitalist
DX: A41.9 Sepsis, unspecified organism (principal); F03.90 Unspecified dementia, unspecified severity, without behavioral disturbance, psychotic disturbance, mood disturbance, and anxiety; N39.0 Urinary tract infection, site not specified; J44.9 Chronic obstructive pulmonary disease, unspecified; G40.909 Epilepsy, unspecified, not intractable, without status epilepticus; M13.849 Other specified arthritis, unspecified hand; H26.9 Unspecified cataract; Z90.710 Acquired absence of both cervix and uterus; F17.210 Nicotine dependence, cigarettes, uncomplicated; M81.0 Age-related osteoporosis without current pathological fracture; B96.20 Unspecified Escherichia coli [E. coli] as the cause of diseases classified elsewhere; E78.5 Hyperlipidemia, unspecified; E86.0 Dehydration
CPT/HCPCS: 36415; 71010; 80053; 80164; 81003; 81015; 83605; 84484; 85025; 85610; 85730; 86140; 87040; 87077; 87086; 87186; 99406; A9270-GY; J1644

== ENCOUNTER 2017-04-09 07:26 | Day surgery (SDC) | payer MEDICARE ==
--- NOTE | 2017-04-05 20:08 | HP ---
CC: Dr. Mili Nguyễn; Dr. Danielle Fang; Dr. Choe * ADMITTING HISTORY AND PHYSICAL: DATE OF ADMISSION: 04/09/17 ADMITTING DIAGNOSES: 1. Left hydronephrosis. 2. Calculus, left ureter. PLANNED PROCEDURE: Left ureteroscopy, possible laser and left stent insertion. SURGEON: Dr. Choe. HISTORY OF PRESENT ILLNESS: Naa Tilley is a 71-year-old lady, who has had a history of 2 episodes of urosepsis in the last 6 to 8 months. She recently was sent for imaging by Dr. Nguyễn and was noted to have a 6- to 7-mm calculus in the mid left ureter with the left hydronephrosis and hydroureter. Given the degree of dilatation of the ureter, it appears that this has been going on for a while and may have possibly contributed to her urosepsis. She is now being brought in for left ureteroscopy, possible laser and stent insertion. It is possible that this may be associated with a stricture in the ureter and I have explained to her and her that this may require a 2-stage procedure depending on the intraoperative findings. PAST MEDICAL HISTORY: Significant for epilepsy, episodes of urosepsis as mentioned above, and history of high cholesterol PAST SURGICAL HISTORY: Significant for uterine perforation and subsequent hysterectomy and appendectomy. MEDICATIONS ON ADMISSION: 1. Depakote 500 mg 1 tablet twice daily. 2. Atorvastatin 10 mg daily. ALLERGIES: No known drug allergies. SOCIAL HISTORY: She is a chronic smoker with a 09-tpsm-fmhg-year smoking history. REVIEW OF SYSTEMS: She denies any chest pain or shortness of breath. PHYSICAL EXAMINATION VITAL SIGNS: Blood pressure is 118/76, pulse 87 per minute, temperature 96.6, oxygen saturation 96% on room air. RESPIRATORY: Lungs are clear bilaterally. CARDIOVASCULAR: Regular rate and rhythm. S1, S2. ABDOMEN: Soft with very mild left flank tenderness. DIAGNOSTIC STUDIES/LAB DATA: Recent urine culture done on 04/04/17 was negative. IMPRESSION: A 71-year-old lady with 2 episodes of urosepsis and what appears to be chronic obstruction of the left ureter secondary to a 6-mm calculus in the mid left ureter. PLAN: Left ureteroscopy, possible laser and stent insertion. [id number]/[facility] #: [id number] [facility]
[~2017-04-09 07:26] MED LIST: Buffered Lidocaine 0.9% SYRIN* 5 ML/SYR SYRINGE INTRADERM ONE; Sodium Citrate/Citric Acid* 15 ML UDC PO ONE
[2017-04-09] MEDS ORDERED: Sodium Citrate/Citric Acid* 15 ML UDC ONE (07:38)
[2017-04-09] MEDS ORDERED: cefTRIAXone(*) 2 GM ADDV.VIAL IVPB ONE (07:39)
[2017-04-09] MEDS ORDERED: Buffered Lidocaine 0.9% SYRIN* 5 ML/SYR SYRINGE ONE (07:39)
[2017-04-09 08:25] LABS: Hematocrit 36 % (35-47); Hemoglobin 12.2 g/dl (12.0-16.0); Mean Corpuscular HGB Conc 33 g/dl (31-36); Mean Corpuscular Hemoglobin 31 pg (27-31); Mean Corpuscular Volume 92 fL (80-97); Mean Platelet Volume 9 um3 (7.4-10.4); Red Blood Count 3.95 10^6/ul (4.0-5.4); Red Cell Distribution Width 16 % (10.5-15); White Blood Count 8.5 10^3/ul (3.5-10.8)
[2017-04-09] MEDS ORDERED: Iohexol 180 (CONTRAST) 10 ML SDV IV ONE (09:00)
[2017-04-09] MEDS ORDERED: Chloroprocaine 2%* 20 ML VIAL ONE (09:18)
[2017-04-09] MEDS ORDERED: Propofol* 10 MG/ML 20 ML BTL IV PUSH ONE (09:18)
[2017-04-09] MEDS ORDERED: Lidocaine 2% PF * 5 ML VIAL ONE (09:18)
--- NOTE | 2017-04-09 11:15 | RAD ---
CPT II Codes: 6045F INDICATION: Left renal stones TECHNIQUE: Intraoperative fluoroscopy was provided during retrograde pyelogram and ureteral stent placement. FINDINGS: 5 spot films depict retrograde cannulation of a dilated left ureter and collecting system with anatomic placement of a left ureteral stent.. Fluoroscopy time: 0.1 minutes IMPRESSION: As above.
[2017-04-09 12:56] VITALS: BP 119/68
--- NOTE | 2017-04-10 05:58 | OP ---
CC: Dr. Mili Nguyễn * DATE OF OPERATION: 04/09/17 - [facility] DATE OF : 45 SURGEON: Olaf Choe MD ANESTHESIOLOGIST: Dr. Gonzalez. ANESTHESIA: Spinal. PRE-OP DIAGNOSES: 1. Left hydronephrosis. 2. Obstructing calculus, left ureter. POST-OP DIAGNOSES: 1. Left hydronephrosis. 2. Obstructing calculus, left ureter. OPERATIVE PROCEDURE: Cystoscopy, left retrograde pyelogram, left ureteroscopy, laser lithotripsy of left ureteral calculus and removal of calculus fragments, and left stent insertion. INDICATIONS: Naa Tilley is a 71-year-old lady who was referred by Dr. Nguyễn for findings of an obstructing calculus in the left ureter. COMPLICATIONS: None. OPERATIVE FINDINGS: 1. 7 to 8 mm calculus impacted at junction of [id number] left ureter with associated stricture. 2. Left hydronephrosis and hydroureter (hydroureter appears chronic given the degree of dilation of the ureter). STENT USED: An 8.5-[place] 28-cm silicone stent, left ureter. POSTOPERATIVE CONDITION: Stable. DESCRIPTION OF PROCEDURE: After induction of spinal anesthesia, the patient was placed in dorsal lithotomy position. Sequential compression devices were in place and functioning. Initial evaluation revealed a normal-appearing bladder. Left retrograde pyelogram revealed left hydronephrosis and a dilated tortuous proximal left ureter. A 6-[place] semi-rigid ureteroscope was advanced at the junction of the [id number] left ureter. There was a focal area of narrowing and just above that, a 7 to 8 mm irregularly shaped calculus was noted to be impacted with surrounding inflammatory response. Using a 550 micron Holmium laser, the stone was successfully broken up into multiple fragments and all of the sizable fragments were retrieved. She is certainly at higher risk for a stricture long-term given the existing stricture and the degree of impaction of the calculus, so I elected to proceed with placement of a silicone stent, 8.5-[place] 28-cm, which can be easily left in for 4 to 6 weeks. Stent was positioned under fluoroscopic monitoring with good proximal and distal positioning obtained. The bladder was emptied. The patient tolerated the procedure satisfactorily and was transferred back to the recovery area in stable condition. [id number]/[facility] #: [id number] ANJA[facility]
== END 2017-04-09 12:56 | disposition home or self-care (01) ==
LOC: OR 07:26
PROVIDERS: ATTEND Urology
DX: N13.2 Hydronephrosis with renal and ureteral calculous obstruction (principal); N13.4 Hydroureter; Z96.0 Presence of urogenital implants; N13.1 Hydronephrosis with ureteral stricture, not elsewhere classified; G40.909 Epilepsy, unspecified, not intractable, without status epilepticus; E78.00 Pure hypercholesterolemia, unspecified; F17.200 Nicotine dependence, unspecified, uncomplicated; Z86.19 Personal history of other infectious and parasitic diseases; J44.9 Chronic obstructive pulmonary disease, unspecified
CPT/HCPCS: 36415; 74420; 82365; 85025; 88300; A9270-GY; C1876; J0696; J1580; J2400; J2704

== ENCOUNTER 2018-01-09 19:40 | Emergency (ER) | payer OTHER ==
--- NOTE | 2018-01-09 20:26 | UC ---
Back Pain HPI - HPI Summary HPI Summary: This is ramin Bravo documenting for Mike Zambrano MD. This patient is a 72 year old F presenting to [facility] accompanied by with a chief complaint of left, lower back pain that began this morning. The patient rates the pain 10/10 in severity. Symptoms aggravated by movement. Symptoms alleviated by nothing. Patient denies abd pain and fever. Patient reports a history of kidney stones that occurred approximately 6 months ago. Pt denies having pain with previous kidney stones. Allergies reviewed. Medications reviewed. - History of Current Complaint Stated Complaint: BACK PAIN,POSS UTI Time Seen by Provider: 01/09/18 20:18 Hx Obtained From: Patient ?: No Onset/Duration: Sudden Onset, Lasting Hours, Still Present Severity Initially: Severe Severity Currently: Severe Pain Intensity: 10 Pain Scale Used: 0-10 Numeric Back Pain: Is Discrete @ - Lower left Aggravating Factor(s): Movement Alleviating Factor(s): Nothing Associated Signs And Symptoms: Negative: Fever, Abdominal Pain - Allergies/Home Medications Allergies/Adverse Reactions: Allergies Allergy/AdvReac Type Severity Reaction Status Date / Time No Known Allergies Allergy Verified 01/09/18 20:34 PMH/Surg Hx/FS Hx/Imm Hx Previously Healthy: No GI/ History: Kidney Stones Neurological History: Seizures - Surgical History Surgical History: Yes Surgery Procedure, Year, and Place: HYSTERECTOMY, appendectomy. bilat cataract surgery with IOL 2015 - Family History Known Family History: Positive: Other - Negative breast CA - Social History Occupation: Retired Lives: With Family Alcohol Use: None Substance Use Type: None Smoking Status (MU): Heavy Every Day Tobacco Smoker Type: Cigarettes Amount Used/How Often: smoked for 50 years 1 ppd Length of Time of Smoking/Using Tobacco: 55 years Have You Smoked in the Last Year: Yes Household Exposure Type: Cigarettes - Immunization History Most Recent Influenza Vaccination: 2015 Most Recent Pneumonia Vaccination: 2016 Review of Systems Constitutional: Other - Negative fever Gastrointestinal: Other - Negative abd pain Musculoskeletal: Other: - Positive back pain All Other Systems Reviewed And Are Negative: Yes Physical Exam - Summary Physical Exam Summary: General: well-appearing, moderate pain distress Skin: warm, color reflects adequate perfusion, dry Head: normal Eyes: EOMI, CRISTHIAN ENT: normal Neck: supple, nontender Respiratory: CTA, breath sounds present Cardiovascular: RRR Abdomen: soft, tender in the lumbar area in the left flank Bowel: hypoactive bowel sounds Musculoskeletal: normal, strength/ROM intact Neurological: sensory/motor intact, A&O x3 Psychological: affect/mood appropriate Triage Information Reviewed: Yes Vital Signs Reviewed: Yes Back Pain Course/Dx - Course Course Of Treatment: DUE TO SEVERITY OF PAIN AND NEED FOR TIMELY LAB RESULTS, RECOMMENDED FURTHER EVAL IN ED. - Differential Dx/Diagnosis Provider Diagnoses: LUMBAR, LEFT FLANK AND LEFT ABDOMINAL PAIN Discharge - Sign-Out/Discharge Documenting (check all that apply): Patient Departure - Discharge Plan Condition: Stable Disposition: HOME-RECOMMEND TO ED Patient Education Materials: Acute Abdominal Pain (ED), Acute Low Back Pain (ED ), Flank Pain (ED) Referrals: Mili Nguyễn MD [Primary Care Provider] - Additional Instructions: GO DIRECTLY TO THE EMERGENCY DEPARTMENT FOR FURTHER EVALUATION OF YOUR BACK, FLANK AND ABDOMINAL PAIN. - Billing Disposition and Condition Condition: STABLE Disposition: Home-Recommend to ED
[2018-01-09 20:34] VITALS: BP 123/70
== END 2018-01-09 20:43 | disposition home health service (06) ==
LOC: UCEAST 19:40
DX: M54.5 Low back pain (principal); R10.9 Unspecified abdominal pain; F17.210 Nicotine dependence, cigarettes, uncomplicated
CPT/HCPCS: 99211; G0463

== ENCOUNTER 2018-01-09 20:57 | Emergency (ER) | payer MEDICARE, OTHER ==
[2018-01-09 22:44] LABS: Urine Appearance Cloudy; Urine Blood Negative (Negative); Urine Color Yellow; Urine Ketones Negative (Negative); Urine Protein 1+(30 mg/dL) (Negative); Urine Red Blood Cell Absent (Absent); Urine Specific Gravity 1.014 (1.010-1.030); Urine Urobilinogen Negative (Negative); Urine White Blood Cell 3+(>20/hpf) (Absent)
[2018-01-09 22:44] LABS: ABS Basophils 0 10^3/ul (0-0.2); ABS Eosinophils 0 10^3/ul (0-0.6); ABS Monocytes 0.9 10^3/ul (0-0.8); ABS Neutrophils 6.2 10^3/ul (1.5-7.7); ABS Nucleated RBC 0 10^3/ul; Eosinophil % 0.4 % (0-6); Hematocrit 36 % (35-47); Hemoglobin 12.3 g/dl (12.0-16.0); Lymphocyte % 21.6 % (25-47); Mean Corpuscular HGB Conc 34 g/dl (31-36); Mean Corpuscular Hemoglobin 30 pg (27-31); Mean Corpuscular Volume 89 fL (80-97); Mean Platelet Volume 8.3 um3 (7.4-10.4); Nucleated Red Blood Cells % 0.1; Platelet Count 348 10^3/ul (150-450); Red Blood Count 4.05 10^6/ul (4.00-5.40); Red Cell Distribution Width 15 % (10.5-15); White Blood Count 9.1 10^3/ul (3.5-10.8)
[2018-01-09] MEDS ORDERED: Ciprofloxacin 400MG IVPREMIX(* 400 MG/200 ML BAG IVPB ONE (23:45)
[2018-01-09] MEDS ORDERED: Ketorolac INJ* 30 MG/ML 1 ML VIAL IV PUSH ONE (23:45)
[2018-01-09] MEDS ORDERED: Morphine VIAL* 4 MG/ML VIAL (1 ml vial) IV ONE (23:46)
--- NOTE | 2018-01-10 00:55 | ED ---
GI/ HPI - HPI Summary HPI Summary: 72F presents with left flank pain for the past day. She states she woke up this pain. She states pain radiates to LUQ and down left side back. She denies any urgency frequency. She denies any vaginal discharge. She admits to nausea but denies any vomiting. She denies any hematuria. She has a history of kidney stones. No previous belly surgeries. She denies any injury. No saddle anesthesia or loss of bowel or bladder. No fevers. Tried some ibuprofen earlier today. no history of back pain. no injury. - History of Current Complaint Chief Complaint: EDFlankPain Time Seen by Provider: 01/09/18 23:37 Stated Complaint: BACK PAIN Pain Intensity: 8 - Additional Pertinent History Primary Care Physician: MIGUEL - Allergy/Home Medications Allergies/Adverse Reactions: Allergies Allergy/AdvReac Type Severity Reaction Status Date / Time No Known Allergies Allergy Verified 01/09/18 20:34 Home Medications: Home Medications Ascorbate Calcium/Bioflavonoid [Arminda-C 1,000 mg Tablet] 1 tab PO DAILY [History Confirmed 01/09/18] Atorvastatin* [Lipitor*] 10 mg PO DAILY 01/09/18 [History Confirmed 01/09/18] Calcium Carbonate/Vitamin D3 [Calcium 600 + Vit D Tablet] 1 tab PO DAILY [History Confirmed 01/09/18] Multivitamins/Minerals TAB* [Theragran/minerals TAB*] 1 tab PO DAILY 01/09/18 [ History Confirmed 01/09/18] PMH/Surg Hx/FS Hx/Imm Hx Endocrine/Hematology History: Denies: Hx Diabetes Cardiovascular History: Reports: Hx Hypercholesterolemia, Other Cardiovascular Problems/Disorders - high cholesterol Denies: Hx Hypertension, Hx Pacemaker/ICD Respiratory History: Reports: Other Respiratory Problems/Disorders - 55 year smoker History: Reports: Hx Kidney Stones Denies: Hx Renal Disease Musculoskeletal History: Reports: Hx Arthritis - FINGERS Denies: Hx Rheumatoid Arthritis, Hx Osteoporosis Sensory History: Reports: Hx Cataracts, Hx Contacts or Glasses - GLASSES Denies: Hx Hearing Aid Opthamlomology History: Reports: Hx Cataracts, Hx Contacts or Glasses - GLASSES Neurological History: Reports: Hx Seizures - HX OF LAST ABOUT 1 YEAR AGO, Other Neuro Impairments/Disorders - dementia Psychiatric History: Denies: Hx Panic Disorder - Cancer History Hx Chemotherapy: No Hx Radiation Therapy: No - Surgical History Surgery Procedure, Year, and Place: HYSTERECTOMY, appendectomy. bilat cataract surgery with IOL 2016 Hx Anesthesia Reactions: No Infectious Disease History: No Infectious Disease History: Denies: Traveled Outside the [place] in Last 30 Days - Family History Known Family History: Positive: Other - Negative breast CA - Social History Alcohol Use: None Substance Use Type: Reports: None Smoking Status (MU): Heavy Every Day Tobacco Smoker Type: Cigarettes Amount Used/How Often: smoked for 50 years 1 ppd Length of Time of Smoking/Using Tobacco: 55 years Have You Smoked in the Last Year: Yes Review of Systems Negative: Fever Negative: Chest Pain Negative: Shortness Of Breath Positive: Abdominal Pain, Nausea. Negative: Vomiting, Diarrhea Positive: flank pain All Other Systems Reviewed And Are Negative: Yes Physical Exam Triage Information Reviewed: Yes Vital Signs On Initial Exam: Initial Vitals Temp Pulse Resp BP Pulse Ox 98.3 F 94 20 98/81 99 01/09/18 21:03 01/09/18 21:03 01/09/18 21:03 01/09/18 21:03 01/09/18 21:03 Vital Signs Reviewed: Yes Appearance: Positive: Well-Appearing Skin: Positive: Warm, Dry Head/Face: Positive: Normal Head/Face Inspection Eyes: Positive: Normal, Conjunctiva Clear ENT: Positive: Pharynx normal Respiratory/Lung Sounds: Positive: Clear to Auscultation, Breath Sounds Present Cardiovascular: Positive: Normal, RRR Abdomen Description: Positive: Soft, CVA Tenderness (L), Other: - tenderness LUQ Bowel Sounds: Positive: Present Musculoskeletal: Positive: Normal Neurological: Positive: Normal Psychiatric: Positive: Normal Diagnostics - Vital Signs Vital Signs Temp Pulse Resp BP Pulse Ox 01/10/18 00:19 16 01/10/18 00:00 91 97 01/09/18 23:51 82 117/76 96 01/09/18 23:00 98.8 F 85 18 128/79 95 01/09/18 21:03 98.3 F 94 20 98/81 99 - Laboratory Lab Results: Lab Results 01/09/18 01/09/18 01/09/18 Range/Units 22:21 22:37 22:37 WBC 9.1 (3.5-10.8) 10^3/ul RBC 4.05 (4.00-5.40) 10^6/ul Hgb 12.3 (12.0-16.0) g/dl Hct 36 (35-47) % MCV 89 (80-97) fL MCH 30 (27-31) pg MCHC 34 (31-36) g/dl RDW 15 (10.5-15) % Plt Count 348 (150-450) 10^3/ul MPV 8.3 (7.4-10.4) um3 Neut % (Auto) 68.3 (38-83) % Lymph % (Auto) 21.6 L (25-47) % Rains % (Auto) 9.3 H (0-7) % Eos % (Auto) 0.4 (0-6) % Baso % (Auto) 0.4 (0-2) % Absolute Neuts (auto) 6.2 (1.5-7.7) 10^3/ul Absolute Lymphs (auto) 2.0 (1.0-4.8) 10^3/ul Absolute Monos (auto) 0.9 H (0-0.8) 10^3/ul Absolute Eos (auto) 0 (0-0.6) 10^3/ul Absolute Basos (auto) 0 (0-0.2) 10^3/ul Absolute Nucleated RBC 0 10^3/ul Nucleated RBC % 0.1 Sodium 137 (135-145) mmol/L Potassium 3.6 (3.5-5.0) mmol/L Chloride 103 (101-111) mmol/L Carbon Dioxide 25 (22-32) mmol/L Anion Gap 9 (2-11) mmol/L BUN 14 (6-24) mg/dL Creatinine 0.87 (0.51-0.95) mg/dL Est GFR ( Amer) 77.4 (>60) Est GFR (Non-Af Amer) 64.0 (>60) BUN/Creatinine Ratio 16.1 (8-20) Glucose 109 H (70-100) mg/dL Calcium 9.8 (8.6-10.3) mg/dL Total Bilirubin 0.20 (0.2-1.0) mg/dL AST 19 (13-39) U/L ALT 12 (7-52) U/L Alkaline Phosphatase 60 (34-104) U/L Total Protein 7.1 (6.4-8.9) g/dL Albumin 3.7 (3.2-5.2) g/dL Globulin 3.4 (2-4) g/dL Albumin/Globulin Ratio 1.1 (1-3) Urine Color Yellow Urine Appearance Cloudy Urine pH 5.0 (5-9) Ur Specific Dexter 1.014 (1.010-1.030) Urine Protein 1+(30 mg/dl) A (Negative) Urine Ketones Negative (Negative) Urine Blood Negative (Negative) Urine Nitrate Negative (Negative) Urine Bilirubin Negative (Negative) Urine Urobilinogen Negative (Negative) Ur Leukocyte Esterase 3+ A (Negative) Urine WBC (Auto) 3+(>20/hpf) A (Absent) Urine RBC (Auto) Absent (Absent) Ur Squamous Epith Cells Present A (Absent) Calcium Oxalate Crystal Present A (Absent) Urine Bacteria Absent (Absent) Hyaline Casts Present A (Absent) Urine Glucose Negative (Negative) Urine Ascorbic Acid * A (Negative) Result Diagrams: 01/09/18 22:37 01/09/18 22:37 Lab Statement: Any lab studies that have been ordered have been reviewed, and results considered in the medical decision making process. - CT abd CT Interpretation: Positive (See Comments) - no stone on the left which is where pain is. has multiple stones at UVJ with largest measuring 7mm on right with moderate hydronephrosis. CT Interpretation Completed By: Radiologist Re-Evaluation - Re-Evaluation First Eval Re-Evaluation Time: 02:30 Change: Improved Comment: feeling better after pain meds GIGU Course/Dx - Course Course Of Treatment: 72F presents with left flank pain for the past day. She states she woke up this pain. She states pain radiates to LUQ and down left side back. She denies any urgency frequency. She denies any vaginal discharge. She admits to nausea but denies any vomiting. She denies any hematuria. She has a history of kidney stones. No previous belly surgeries. She denies any injury. No saddle anesthesia or loss of bowel or bladder. No fevers. Tried some ibuprofen earlier today. no history of back pain. no injury. On exam tenderness left flank and left upper quadrant and left-sided back. Neurovascular intact. wbc normal. Urine shows UTI. kidney function normal. afebrile. Given dose of Cipro. CT shows no stone on the left which is where pain is. has multiple stones at UVJ with largest measuring 7mm on right with moderate hydronephrosis. Gave pain medication and Flomax. Discussed case with Dr. Crouch will have follow-up with urology. We'll place on Cipro for the UTI. Patient understands agrees with plan. - Diagnoses Differential Diagnoses - Female: Pyelonephritis, Urinary Tract Infection, Ureteral Calculi Provider Diagnoses: UTI (urinary tract infection), Urethral stone Discharge - Sign-Out/Discharge Documenting (check all that apply): Patient Departure - Discharge Plan Condition: Good Disposition: HOME Prescriptions: Ciprofloxacin TAB* [Cipro 500 MG TAB*] 500 mg PO BID #13 tab oxyCODONE/Acetamin 5/325 MG* [Percocet 5/325 TAB*] 1 tab PO Q6H PRN #16 tab MDD 4 PRN Reason: Pain Tamsulosin CAP* [Flomax CAP*] 0.4 mg PO DAILY #7 cap Patient Education Materials: Urinary Tract Infection in Women (ED), Ureteral Stones (ED) Referrals: Mili Nguyễn MD [Primary Care Provider] - Olaf Choe MD [Medical Doctor] - Additional Instructions: Take ibuprofen every 6 hours and narcotic as needed every 6 hours take cipro twice a day for 7 days Take Flomax daily starting tomorrow, first dose given in ED until stone expelled , make sure stand up slowly Follow up with urology, call office today for appointment Strain urine until collect stone Return to ED if unable to manage pain at home, develop fever, persistent vomiting or any new or worsening symptoms - Billing Disposition and Condition Condition: GOOD Disposition: Home
[2018-01-10] MEDS ORDERED: Morphine VIAL* 4 MG/ML VIAL (1 ml vial) IV ONE (01:57)
[2018-01-10] MEDS ORDERED: Tamsulosin CAP* 0.4 MG PO ONE (02:02)
[2018-01-10 03:26] VITALS: BP 105/66
--- NOTE | 2018-01-10 08:55 | RAD ---
CLINICAL HISTORY: left flank pain, uti COMPARISON: April 04, 2017 TECHNIQUE: Multiple contiguous axial CT scans were obtained of the abdomen and pelvis, without intravenous contrast enhancement. Coronal and sagittal multiplanar reformations are submitted for review. Oral contrast was not administered. FINDINGS: The study is limited by the lack of intravenous contrast. This limits evaluation of the solid organs and vasculature. LUNG BASES: The lung bases are clear. LIVER: The liver is normal in shape, size, contour, and attenuation. BILE DUCTS: There is no intrahepatic or extrahepatic biliary dilatation. GALLBLADDER: The gallbladder is normal, without pericholecystic inflammatory change. PANCREAS: The pancreas is normal, without mass or ductal dilatation. SPLEEN: Normal in size and appearance. UPPER GI TRACT: Evaluation of the gastrointestinal tract is limited by incomplete gastric distention. The upper GI tract is unremarkable. SMALL BOWEL AND MESENTERY: The small bowel is normal in contour, course, and caliber. There is no obstruction or dilatation. COLON: The colon is normal in contour, course, caliber. There is no pericolonic inflammatory change. ADRENALS: Normal bilaterally. KIDNEYS: There are multiple left renal calyceal stones measuring up to 0.4 cm. There is a cluster of right renal pelvic stones, in aggregate measuring 1 cm. There are multiple calculi of the distal right ureter just proximal to the UVJ measuring up to 0.7 cm. There is moderate hydroureter with moderate pelviectasis on the right. There is perinephric stranding on the right. BLADDER: The bladder is smooth in contour. PELVIC ORGANS: The pelvic organs are not visualized. AORTA: There is calcific atherosclerotic disease of the abdominal aorta and its branches, without aneurysmal dilatation IVC: Unremarkable LYMPH NODES: There is no lymphadenopathy by size criteria. ABDOMINAL WALL: There is no evidence for abdominal wall hernia. BONES AND SOFT TISSUES: There is a scoliotic curvature of the spine. Degenerative changes are noted. There is chronic compression deformities of L4, T11, and T12. Degenerative changes are noted. OTHER: None IMPRESSION: BILATERAL NEPHROLITHIASIS INCLUDING MULTIPLE CALCULI OF THE DISTAL RIGHT URETER WITH MODERATE RIGHT-SIDED HYDRONEPHROSIS. R0
--- NOTE | 2018-01-12 09:39 | PN ---
Progress Note - Progress Note Date of Service: 01/09/18 Note: Urine culture preliminary grew Staphylococcus simulans 100,000 Patient placed on Cipro prior to discharge We will await sensitivities at this time REGINO Cedeño
--- NOTE | 2018-01-13 07:42 | ED ---
Progress - Progress Note Progress Note: Patient's final urine culture reveals greater than 100,000 Staphylococcus simulans. She was given ciprofloxacin at time of discharge possible pyelonephritis however with final results indicating no sensitivity against organism for Cipro, she will be switched to Macrobid. She reports she's completed her ciprofloxacin so will simply start Macrobid today. Her pharmacy is [facility]. In regards to urology follow-up, she reports she's placed a call but hasn't heard back yet. Since it is Sunday, she will call tomorrow for follow-up. aware and agrees with plan. She is also aware of danger signs and symptoms of when to return to the emergency department. Re-Evaluation - Re-Evaluation First Eval Re-Evaluation Time: 02:30 Change: Improved Comment: feeling better after pain meds Course/Dx - Course Course Of Treatment: 72F presents with left flank pain for the past day. She states she woke up this pain. She states pain radiates to LUQ and down left side back. She denies any urgency frequency. She denies any vaginal discharge. She admits to nausea but denies any vomiting. She denies any hematuria. She has a history of kidney stones. No previous belly surgeries. She denies any injury. No saddle anesthesia or loss of bowel or bladder. No fevers. Tried some ibuprofen earlier today. no history of back pain. no injury. On exam tenderness left flank and left upper quadrant and left-sided back. Neurovascular intact. wbc normal. Urine shows UTI. kidney function normal. afebrile. Given dose of Cipro. CT shows no stone on the left which is where pain is. has multiple stones at UVJ with largest measuring 7mm on right with moderate hydronephrosis. Gave pain medication and Flomax. Discussed case with Dr. Crouch will have follow-up with urology. We'll place on Cipro for the UTI. Patient understands agrees with plan. - Diagnoses Provider Diagnoses: UTI (urinary tract infection), Urethral stone Discharge - Sign-Out/Discharge Documenting (check all that apply): Post-Discharge Follow Up - Discharge Plan Condition: Good Disposition: HOME Prescriptions: Ciprofloxacin TAB* [Cipro 500 MG TAB*] 500 mg PO BID #13 tab oxyCODONE/Acetamin 5/325 MG* [Percocet 5/325 TAB*] 1 tab PO Q6H PRN #16 tab MDD 4 PRN Reason: Pain Tamsulosin CAP* [Flomax CAP*] 0.4 mg PO DAILY #7 cap Patient Education Materials: Urinary Tract Infection in Women (ED), Ureteral Stones (ED) Referrals: Mili Nguyễn MD [Primary Care Provider] - Olaf Choe MD [Medical Doctor] - Additional Instructions: Take ibuprofen every 6 hours and narcotic as needed every 6 hours take cipro twice a day for 7 days Take Flomax daily starting tomorrow, first dose given in ED until stone expelled , make sure stand up slowly Follow up with urology, call office today for appointment Strain urine until collect stone Return to ED if unable to manage pain at home, develop fever, persistent vomiting or any new or worsening symptoms - Billing Disposition and Condition Condition: GOOD Disposition: Home
== END 2018-01-10 03:27 | disposition home or self-care (01) ==
LOC: ED 20:57
DX: N39.0 Urinary tract infection, site not specified (principal); B95.7 Other staphylococcus as the cause of diseases classified elsewhere; N21.1 Calculus in urethra; N13.2 Hydronephrosis with renal and ureteral calculous obstruction; Z87.442 Personal history of urinary calculi; R11.0 Nausea; E78.00 Pure hypercholesterolemia, unspecified; Z90.710 Acquired absence of both cervix and uterus; F17.210 Nicotine dependence, cigarettes, uncomplicated
CPT/HCPCS: 36415; 74176; 80053; 81003; 81015; 85025; 87077; 87086; 87186; 96365; 96375; 96376; 99284; J0744; J1885; J2270

== ENCOUNTER 2018-11-24 10:57 | Emergency (ER) | payer OTHER ==
--- NOTE | 2018-11-24 11:18 | ED ---
Neurological HPI - HPI Summary HPI Summary: Patient is a 73 y/o F presenting to ED via EMS with complaints of a seizure episode. Son, Sergio, is present. Patient's son notes that the patient has Hx of seizures and is prescribed Depakote. However, the son states that the patient has not been taking this medication as prescribed. Seizure episode was witnessed by the son. The son states that the episode last around a minute. Patient's son states that he witnessed it onset and had helped the patient to a chair, therefore the patient did not sustain any injuries. Patient was post- ictal after the episode and still is in ED upon arrival. Episode is reported to have occurred within the past hour. EMS reports no medications were given. EMS notes that the patient had systolic BP of 190, sinus tachycardic 130. 12 lead EMS EKG is reported to have been non-diagnostic. Patient is followed by Dr. Choi , who last saw the patient around a month. Son is unaware of the patient's medications, with the exception of Depakote. Provider evaluated at 1052 upon EMS arrival. On triage, pain is denied, nothing is noted to aggravate/alleviate Sx. Home medications and allergies are reviewed. Allergies Allergy/AdvReac Type Severity Reaction Status Date / Time No Known Allergies Allergy Verified 02/04/18 09:58 - History of Current Complaint Stated Complaint: "SIEZURE PER EMS" Hx Obtained From: Patient, Family/Adult Live In Caregiver - sonSergio, EMS Onset/Duration: Sudden Onset, Started hours ago, Resolved Timing: Intermittent Episodes Lasting: - 1 minute seizure Current Severity: None - pain denied on triage Pain Intensity: 0 Pain Scale Used: 0-10 Numeric Character: Other: - seizure, post ictal at present Episode Lasting: Seconds/Minutes Syncope Context: Witnessed Frequency: Episodes x___ - 1, Episodes Lasting ____ (in Mins/Days/Weeks/Years) - seizure lasted 1 minute Aggravating: Nothing Alleviating: Nothing Associated Signs and Symptoms: Positive: Seizure - Additional Pertinent History Primary Care Physician: MIGUEL - Allergy/Home Medications Allergies/Adverse Reactions: Allergies Allergy/AdvReac Type Severity Reaction Status Date / Time No Known Allergies Allergy Verified 02/04/18 09:58 PMH/Surg Hx/FS Hx/Imm Hx Endocrine/Hematology History: Denies: Hx Diabetes Cardiovascular History: Reports: Hx Hypercholesterolemia, Other Cardiovascular Problems/Disorders - high cholesterol Denies: Hx Hypertension, Hx Pacemaker/ICD Respiratory History: Reports: Other Respiratory Problems/Disorders - 55 year smoker History: Reports: Hx Kidney Stones Denies: Hx Renal Disease Musculoskeletal History: Reports: Hx Arthritis - FINGERS Denies: Hx Rheumatoid Arthritis, Hx Osteoporosis Sensory History: Reports: Hx Cataracts, Hx Contacts or Glasses - GLASSES Denies: Hx Hearing Aid Opthamlomology History: Reports: Hx Cataracts, Hx Contacts or Glasses - GLASSES Neurological History: Reports: Hx Seizures - HX OF LAST ABOUT 1 YEAR AGO, Other Neuro Impairments/Disorders - dementia Psychiatric History: Denies: Hx Panic Disorder - Cancer History Hx Chemotherapy: No Hx Radiation Therapy: No - Surgical History Surgery Procedure, Year, and Place: HYSTERECTOMY, appendectomy. bilat cataract surgery with IOL 2015. KIDNEY STONES REMOVED 05/2017 Hx Anesthesia Reactions: No Infectious Disease History: No Infectious Disease History: Denies: Traveled Outside the [place] in Last 30 Days - Family History Known Family History: Positive: Other - No FMHx of breast CA - Social History Alcohol Use: None Substance Use Type: Reports: None Smoking Status (MU): Heavy Every Day Tobacco Smoker Type: Cigarettes Amount Used/How Often: smoked for 50 years 1 ppd Length of Time of Smoking/Using Tobacco: 55 years Have You Smoked in the Last Year: Yes Review of Systems Negative: Fever - on vitals, temp is 98.4 F Neurological: Other - POSITIVE - SEIZURE All Other Systems Reviewed And Are Negative: Yes Physical Exam - Summary Physical Exam Summary: Appearance: Well-appearing, no pain distress, well-nourished Skin: Warm, color reflects adequate perfusion, dry Head: Normal Head/Face inspection, atraumatic Eyes: Conjunctiva clear ENT: Normal inspection Neck: Supple, no nodes, no JVD Respiratory: Lungs clear, normal breath sounds, no respiratory distress Cardio: RRR, No murmur, pulses normal, brisk capillary refill Abdomen: Soft, nontender Bowel sounds: Present Musculoskeletal: Strength Intact/ROM intact, no calf tenderness, no edema. Psychological: Normal Neuro: A&O x3, CN II-XII intact, motor function 5/5, sensation intact, cerebellar normal, GCS 15 Triage Information Reviewed: Yes Vital Signs On Initial Exam: Initial Vitals Temp Pulse Resp BP Pulse Ox 98.4 F 120 20 164/88 94 11/24/18 11:06 11/24/18 11:06 11/24/18 11:06 11/24/18 11:06 11/24/18 11:06 Vital Signs Reviewed: Yes - Renato Coma Scale Best Eye Response: 4 - Spontaneous Best Motor Response: 6 - Obeys Commands Best Verbal Response: 5 - Oriented Coma Scale Total: 15 Diagnostics - Vital Signs Vital Signs Temp Pulse Resp BP Pulse Ox 11/24/18 11:08 94 11/24/18 11:06 98.4 F 120 20 164/88 94 - Laboratory Result Diagrams: 11/24/18 11:17 11/24/18 11:17 Lab Statement: Any lab studies that have been ordered have been reviewed, and results considered in the medical decision making process. - Radiology CXR Radiology Interpretation Completed By: Radiologist Summary of Radiographic Findings: CXR IMPRESSION: No radiographic evidence for acute cardiopulmonary abnormality on this. portable chest x-ray. THIS REPORT WAS REVIEWED BY DR. CASTANON. - EKG 1109 Cardiac Rate: Tachycardia - rate of 109 BPM EKG Rhythm: Sinus Tachycardia ST Segment: Non-Specific Ectopy: None Summary of EKG Findings: An EKG at 1109 reveals sinus tachycardia with rate of 109 BPM, nml AV/IV CT, nml QTc, and nml axis. Nonspecific repol abnormality at lateral leads. No acute changes, no STEMI, non-specific ST, no ectopy. Dr. Castanon has reviewed and interpreted this EKG Re-Evaluation - Re-Evaluation First Eval Re-Evaluation Time: 11:56 Comment: Nurse states that the patient reports experiencing onset of RÍOS and pressure drop. Patient claims that she has been taking her Depakote as prescribed, but son is unsure of this. Patient takes atorvastatin and ibuprofen. Dekapote, 250 mg BID, is prescribed. Second Eval Re-Evaluation Time: 12:37 Comment: Patient is alert and oriented at present. Pulse 88, o2 99, BP 122/70. Patient does not recall seizure. Last was 2.5 weeks ago, last one before this was "quite a while ago". Seizures have been present 10-12 years. Patient notes she gets diarrhea if she takes two doses of depakote at the same time. No other pain with exception of RÍOS. Seizure is described as all extermities, eyes rolled back, LOC. Urinary incontinence is reported. No tongue bite is reported. Patient has dentures. PSHx of hysterectomy. No abdominal pain reported. Lipoma on back at right side. Congested cough is noted, patient is a current smoker. Patient does not drink alcohol, no substance usage is reported. No swelling, no calf tenderness. Third Eval Re-Evaluation Time: 13:38 Comment: Discussed with son if patient is having diarrhea with depakote, she may take amodium. Results of labs and tests were discussed, patient and son are agreeable with discharge and neurology follow up. Strict return precautions were given. Course/Dx - Course Course Of Treatment: Patient is a 73 y/o F presenting to ED via EMS with complaints of a seizure episode. Son, Sergio, is present. Patient's son notes that the patient has Hx of seizures and is prescribed Depakote. However, the son states that the patient has not been taking this medication as prescribed. Seizure episode was witnessed by the son. The son states that the episode last around a minute. Patient's son states that he witnessed it onset and had helped the patient to a chair, therefore the patient did not sustain any injuries. Patient was post-ictal after the episode and still is in ED upon arrival. Episode is reported to have occurred within the past hour. EMS reports no medications were given. EMS notes that the patient had systolic BP of 190, sinus tachycardic 130. 12 lead EMS EKG is reported to have been non-diagnostic. Patient is followed by Dr. Choi, who last saw the patient around a month. Son is unaware of the patient's medications, with the exception of Depakote. An EKG at 1109 reveals sinus tachycardia with rate of 109 BPM, nml AV/IV CT, nml QTc, and nml axis. Nonspecific repol abnormality at lateral leads. No acute changes, no STEMI, non-specific ST, no ectopy. Dr. Castanon has reviewed and interpreted this EKG. CXR IMPRESSION: No radiographic evidence for acute cardiopulmonary abnormality on this. portable chest x-ray. 1156 - Nurse states that the patient reports experiencing onset of RÍOS and pressure drop. Patient claims that she has been taking her Depakote as prescribed, but son is unsure of this. Patient takes atorvastatin and ibuprofen. Dekapote, 250 mg BID, is prescribed. During ED course, patient received Tylenol 650 mg PO. 1237 - Patient is alert and oriented at present. Pulse 88, o2 99, BP 122/70. Patient does not recall seizure. Last was 2.5 weeks ago, last one before this was " quite a while ago". Seizures have been present 10-12 years. Patient notes she gets diarrhea if she takes two doses of depakote at the same time. No other pain with exception of RÍOS. Seizure is described as all extermities, eyes rolled back, LOC. Urinary incontinence is reported. No tongue bite is reported. Patient has dentures. PSHx of hysterectomy. No abdominal pain reported. Lipoma on back at right side. Congested cough is noted, patient is a current smoker. Patient does not drink alcohol, no substance usage is reported. No swelling, no calf tenderness. Labs showed RDW 16, carbon dioxide 18, anion gap 14, creatinine 0.98, glucose 167, lactic acid 6.2, magnesium 1.8, trop 0, BNP 33, TSH 3.29. UA showed 1+ protein, trace ketones, trace WBC, 1+ RBC, squamous epith present, ascorbic acid. Tox screen showed Valproic acid 22. 1338 - Discussed with son if patient is having diarrhea with depakote, she may take amodium. Results of labs and tests were discussed, patient and son are agreeable with discharge and neurology follow up. Strict return precautions were given. - Diagnoses Provider Diagnoses: Seizure, Noncompliance with medication regimen Discharge - Sign-Out/Discharge Documenting (check all that apply): Patient Departure - DISCHARGE Patient Received Moderate/Deep Sedation with Procedure: No - Discharge Plan Condition: Stable Disposition: HOME Patient Education Materials: Epilepsy (ED) Referrals: Logan Choi MD [Medical Doctor] - 1 Day (Call Dr. Choi's office in the morning ) Mili Nguyễn MD [Primary Care Provider] - 2 Days Additional Instructions: Your depakote level is even lower than it was, the last time it was measured. It is now 22. When it was measured on 11/06/18, the level was 47. Therapeutic is 50. So you need to take 4 depakote pills a day to prevent a seizure. You may take them four times a day if you would like due to the side effects, but you need to take it four times a day. Dr. Choi will want you to call his office tomorrow morning. Please return to the ER if you have new or worsening symptoms. - Attestation Statements Document Initiated by Scribe: Yes Documenting Scribe: BILL SAUCEDO Provider For Whom Scribe is Documenting (Include Credential): QUENTIN CASTANON MD Scribe Attestation: BILL Reno, scribed for QUENTIN CASTANON MD on 11/24/18 at 1607.
[2018-11-24 11:28] LABS: ABS Basophils 0.1 10^3/ul (0-0.2); ABS Eosinophils 0.3 10^3/ul (0-0.6); ABS Lymphocytes 2.6 10^3/ul (1.0-4.8); ABS Monocytes 0.4 10^3/ul (0-0.8); Eosinophil % 3.2 %; Hematocrit 40 % (35-47); Hemoglobin 13.1 g/dL (12.0-16.0); Lymphocyte % 31.7 %; Mean Corpuscular HGB Conc 33 g/dL (31-36); Mean Corpuscular Hemoglobin 30 pg (27-31); Mean Corpuscular Volume 90 fL (80-97); Mean Platelet Volume 8.3 fL (7.4-10.4); Platelet Count 412 10^3/uL (150-450); Red Blood Count 4.45 10^6 /uL (3.70-4.87); Red Cell Distribution Width 16 % (10.5-15); White Blood Count 8.3 10^3/uL (3.5-10.8)
[2018-11-24 11:50] LABS: ALT 28 U/L (7-52); AST 30 U/L (13-39); Albumin 4.1 g/dL (3.2-5.2); Albumin/Globulin Ratio 1.1 (1-3); Alkaline Phosphatase 88 U/L (34-104); Anion Gap 14 mmol/L (2-11); BUN/Creatinine Ratio 16.3 (8-20); Blood Urea Nitrogen 16 mg/dL (6-24); CO2 Carbon Dioxide 19 mmol/L (22-32); Chloride 103 mmol/L (101-111); Creatine Kinase 46 U/L (10-223); EGFR African American 67.3 (>60); EGFR Non-African American 55.6 (>60); Globulin 3.6 g/dL (2-4); Glucose 167 mg/dL (70-100); Magnesium 1.8 mg/dL (1.9-2.7); Potassium 4.4 mmol/L (3.5-5.0); Sodium 136 mmol/L (135-145); Total Protein 7.7 g/dL (6.4-8.9)
[2018-11-24 11:51] LABS: Activated Partial Thrombo Time 33.7 seconds (26.0-38.0); INR 0.91 (0.82-1.09)
[2018-11-24] MEDS ORDERED: Acetaminophen TAB* 325 MG PO ONE (11:56)
[2018-11-24 12:06] LABS: Alcohol < 10 mg/dL (<10)
[2018-11-24 12:20] LABS: TSH (Thyroid Stimulating Horm) 3.29 mcIU/mL (0.34-5.60)
[2018-11-24 13:10] LABS: Urine Appearance Clear; Urine Bacteria Absent (Absent); Urine Bilirubin Negative (Negative); Urine Blood Negative (Negative); Urine Color Yellow; Urine Glucose Negative (Negative); Urine Ketones Trace (Negative); Urine Nitrite Negative (Negative); Urine Protein 1+(30 mg/dL) (Negative); Urine Red Blood Cell 1+(3-5/hpf) (Absent); Urine Specific Gravity 1.014 (1.010-1.030); Urine Squamous Epithelial Cell Present (Absent); Urine Urobilinogen Negative (Negative); Urine White Blood Cell Trace(0-5/hpf) (Absent)
[2018-11-24 13:22] LABS: Urine Benzodiazepine Screen None Detected (None Detect); Urine Opiates Screen None Detected (None Detect)
[2018-11-24 13:53] VITALS: BP 142/78
== END 2018-11-24 13:53 | disposition home or self-care (01) ==
LOC: ED 10:57
DX: G40.909 Epilepsy, unspecified, not intractable, without status epilepticus (principal); Z91.14 Patient's other noncompliance with medication regimen; R00.0 Tachycardia, unspecified; R05 Cough; D17.1 Benign lipomatous neoplasm of skin and subcutaneous tissue of trunk; E78.00 Pure hypercholesterolemia, unspecified; F17.210 Nicotine dependence, cigarettes, uncomplicated
CPT/HCPCS: 36415; 71045; 80053; 80164; 80307; 80320; 81003; 81015; 82550; 83605; 83735; 83880; 84443; 84484; 85025; 85610; 85730; 87086; 93005; 99283; A9270-GY; G0480

== ENCOUNTER 2019-03-17 20:05 | Inpatient (IN) | payer MEDICARE, OTHER ==
--- OUTSIDE RECORDS SUMMARY | 2019-03-17 20:35 | XMS REPORT | Continuity of Care Document ---
:1945 External Reference #:[id number] Author Name Johnny Choi M.D. (transmitted by agent of provider She Liang ) Address [address], [address] [place] [id number] Care Team Providers Name Role Phone Clementina Nguyễn MD - Family Care Team Information Core Worker Medicine Problems Active Problems Provider Date Epilepsy Danielle Fang M.D. Onset: 11/17/2014 Memory impairment Danielle Fang M.D. Onset: 11/17/2014 Chronic fatigue syndrome Johnny Choi M.D. Onset: 01/11/2018 Social History Type Date Description Comments Sex Unknown Tobacco Use Start: Unknown Heavy tobacco smoker (more than 10 cigarettes/day) Smoking Status Reviewed: 03/11/19 Heavy tobacco smoker (more than 10 cigarettes/day) ETOH Use Denies alcohol use Tobacco Use Start: Unknown Patient is a current smoker, smokes every day Recreational Drug Use Denies Drug Use Allergies, Adverse Reactions, Alerts Description No Known Drug Allergies Medications Active Medications SIG Qnty Indications Ordering Provider Date Depakote ER 2 in am and 2 120tabs G40.909 Johnny Choi, 03/11/2019 250mg in pm M.D. Tablets ER 24HR Atorvastatin Calcium 1 po qd 30tabs Unknown 10mg Tablets Alendronate Sodium 1 by mouth 4tabs Unknown 70mg weekly Tablets Ibuprofen Take 1 Tablet Unknown 800mg Tablets By Mouth Two Times Daily as Needed History Medications Depakote ER 3 tabs daily 60tabs G40.909 Berry Manning, 10/07/2018 - 250mg N.P. 03/11/2019 Tablets ER 24HR Immunizations Description No Information Available Vital Signs Date Vital Result Comment 03/11/2019 7:51am Height 63 inches 5'3" Weight 117.12 lb Heart Rate 74 /min BP Systolic Sitting 148 mmHg BP Diastolic Sitting 84 mmHg Respiratory Rate 18 /min BMI (Body Mass Index) 20.7 kg/m2 12/06/2018 8:05am Height 63 inches 5'3" Weight 120.00 lb Heart Rate 86 /min BP Systolic 120 mmHg BP Diastolic 78 mmHg BMI (Body Mass Index) 21.3 kg/m2 Results Test Date Facility Test Result H/L Range Note CBC Auto 03/05/2019 [facility] White Blood 6.0 10^3/uL Normal 3.5-10.[address] [place] [address] [phone] Red Blood Count 4.07 10^6/uL Normal 3.70-4.87 Hemoglobin 12.1 g/dL Normal 12.0-16.0 Hematocrit 37 % Normal 35-47 Mean Corpuscular Volume 90 fL Normal 80-97 Mean Corpuscular Hemoglobin 30 pg Normal 27-31 Mean Corpuscular HGB Conc 33 g/dL Normal 31-36 Red Cell Distribution Width 15 % Normal 10-15 Platelet Count 299 10^3/uL Normal 150-450 Mean Platelet Volume 8.9 fL Normal 7.4-10.4 Abs Neutrophils 4.3 10^3/uL Normal 1.5-7.7 Abs Lymphocytes 1.2 10^3/uL Normal 1.0-4.8 Abs Monocytes 0.4 10^3/uL Normal 0-0.8 Abs Eosinophils 0.1 10^3/uL Normal 0-0.6 Abs Basophils 0.0 10^3/uL Normal 0-0.2 Abs Nucleated RBC 0.0 10^3/uL Granulocyte % 70.9 % Lymphocyte % 20.2 % Monocyte % 6.6 % Eosinophil % 1.9 % Basophil % 0.4 % Nucleated Red Blood Cells % 0.0 Comp Metabolic 03/05/2019 [facility] Sodium 144 mmol/L Normal 135-[address] [place] [address] [phone] Potassium 3.7 mmol/L Normal 3.5-5.0 Chloride 108 mmol/L Normal 101-111 Co2 Carbon Dioxide 29 mmol/L Normal 22-32 Anion Gap 7 mmol/L Normal 2-11 Glucose 108 mg/dL High 70-100 Blood Urea Nitrogen 12 mg/dL Normal 6-24 Creatinine 0.77 mg/dL Normal 0.51-0.95 BUN/Creatinine Ratio 15.6 Normal 8-20 Calcium 9.4 mg/dL Normal 8.6-10.3 Total Protein 6.3 g/dL Low 6.4-8.9 Albumin 3.6 g/dL Normal 3.2-5.2 Globulin 2.7 g/dL Normal 2-4 Albumin/Globulin Ratio 1.3 Normal 1-3 Total Bilirubin 0.30 mg/dL Normal 0.2-1.0 Alkaline Phosphatase 59 U/L Normal 34-104 Alt 5 U/L Low 7-52 Ast 9 U/L Low 13-39 Egfr Non- 73.5 >60 Egfr 88.9 >60 1 Laboratory test 03/05/2019 [facility] Valproic 51.0 Normal 50- [address] Acid g/[place] [address] [phone] CBC Auto Diff 01/06/2019 [facility] White Blood 6.4 Normal 3.5 -10.[address] Count 10^3/[place] [address] [phone] Red Blood Count 4.07 10^6/uL Normal 3.70-4.87 Hemoglobin 12.2 g/dL Normal 12.0-16.0 Hematocrit 37 % Normal 35-47 Mean Corpuscular Volume 90 fL Normal 80-97 Mean Corpuscular Hemoglobin 30 pg Normal 27-31 Mean Corpuscular HGB Conc 33 g/dL Normal 31-36 Red Cell Distribution Width 16 % High 10-15 Platelet Count 337 10^3/uL Normal 150-450 Mean Platelet Volume 9.0 fL Normal 7.4-10.4 Abs Neutrophils 4.1 10^3/uL Normal 1.5-7.7 Abs Lymphocytes 1.6 10^3/uL Normal 1.0-4.8 Abs Monocytes 0.4 10^3/uL Normal 0-0.8 Abs Eosinophils 0.2 10^3/uL Normal 0-0.6 Abs Basophils 0.0 10^3/uL Normal 0-0.2 Abs Nucleated RBC 0.0 10^3/uL Granulocyte % 64.3 % Lymphocyte % 24.6 % Monocyte % 6.7 % Eosinophil % 3.7 % Basophil % 0.7 % Nucleated Red Blood Cells % 0.1 Comp Metabolic 01/06/2019 [facility] Sodium 141 mmol/L Normal 135-[address] [place] [address] [phone] Potassium 4.3 mmol/L Normal 3.5-5.0 Chloride 108 mmol/L Normal 101-111 Co2 Carbon Dioxide 26 mmol/L Normal 22-32 Anion Gap 7 mmol/L Normal 2-11 Glucose 83 mg/dL Normal 70-100 Blood Urea Nitrogen 13 mg/dL Normal 6-24 Creatinine 0.82 mg/dL Normal 0.51-0.95 BUN/Creatinine Ratio 15.9 Normal 8-20 Calcium 9.5 mg/dL Normal 8.6-10.3 Total Protein 6.6 g/dL Normal 6.4-8.9 Albumin 3.7 g/dL Normal 3.2-5.2 Globulin 2.9 g/dL Normal 2-4 Albumin/Globulin Ratio 1.3 Normal 1-3 Total Bilirubin 0.30 mg/dL Normal 0.2-1.0 Alkaline Phosphatase 66 U/L Normal 34-104 Alt 8 U/L Normal 7-52 Ast 12 U/L Low 13-39 Egfr Non- 68.3 >60 Egfr 82.7 >60 2 Laboratory test 01/06/2019 [facility] Valproic Acid 56.0 Normal 50-[address] (Depakene) g/[place] [address] [phone] Laboratory test 11/06/2018 [facility] Valproic Acid 47.0 Low 50-[address] (Depakene) g/[place] [address] [phone] 1 Because ethnic data is not always readily available, this report includes an eGFR for both -Americans and non- Americans. The National Kidney Disease Education Program (NKDEP) does not endorse the use of the MDRD equation for patients that are not between the ages of 18 and 70, are , have extremes of body size, muscle mass, or nutritional status, or are non- or non-. According to the National Kidney Foundation, irrespective of diagnosis, the stage of the disease is based on the level of kidney function: Stage Description GFR(mL/min/1.73 m(2)) 1 Kidney damage with normal or decreased GFR 90 2 Kidney damage with mild decrease in GFR 60-89 3 Moderate decrease in GFR 30-59 4 Severe decrease in GFR 15-29 5 Kidney failure <15 (or dialysis) 2 Because ethnic data is not always readily available, this report includes an eGFR for both -Americans and non- Americans. The National Kidney Disease Education Program (NKDEP) does not endorse the use of the MDRD equation for patients that are not between the ages of 18 and 70, are , have extremes of body size, muscle mass, or nutritional status, or are non- or non-. According to the National Kidney Foundation, irrespective of diagnosis, the stage of the disease is based on the level of kidney function: Stage Description GFR(mL/min/1.73 m(2)) 1 Kidney damage with normal or decreased GFR 90 2 Kidney damage with mild decrease in GFR 60-89 3 Moderate decrease in GFR 30-59 4 Severe decrease in GFR 15-29 5 Kidney failure <15 (or dialysis) 3 Copy Result to: CLEMENTINA NGUYỄN ([id number]) Procedures Date Code Description Status 05/21/2015 62391041 Mammogram Completed Medical Devices Description No Information Available Encounters Type Date Location Provider Dx Diagnosis Office Visit 03/11/2019 [facility] Choi, G40.909 Epilepsy, unsp, 8:00a [facility] not intractable, without status epilepticus R41.3 Other amnesia Office Visit 12/06/2018 [facility] G40.909 Epilepsy, unsp, 8:00a Neurologic Nigel, N.P. not intractable, [facility] without status epilepticus R41.3 Other amnesia Office Visit 10/07/2018 [facility] Johnny G40.909 Epilepsy, unsp, 11:45a Cirilo Choi M.D. not intractable, [facility] without status epilepticus R41.3 Other amnesia Assessments Date Code Description Provider 03/11/2019 G40.909 Epilepsy, unspecified, not intractable, Johnny Choi M.D. without status epile 03/11/2019 R41.3 Other amnesia Johnny Choi M.D. 12/06/2018 G40.909 Epilepsy, unspecified, not intractable, Berry Manning, N.P. without status epile 12/06/2018 R41.3 Other amnesia Berry Manning, N.P. 10/07/2018 G40.909 Epilepsy, unspecified, not intractable, Johnny Choi M.D. without status epile 10/07/2018 R41.3 Other amnesia Johnny Choi M.D. Plan of Treatment Future Appointment(s):05/19/2019 8:00 am - Johnny Ch[facility] M.D. at [facility]03/11/2019 - Johnny Choi M.D.G40.909 Epilepsy, unspecified, not intractable, without status epileNew Medication:Depakote ER 250 mg - 2 in am and 2 in pmFollow up:Follow up in 2 months with JoshRecommendations:Stop smoking Make sure and take your medications as directed.R41.3 Other amnesia Functional Status Description No Information Available Mental Status Description No Information Available Referrals Description No Information Available
[2019-03-17 23:10] LABS: ABS Lymphocytes 0.5 10^3/ul (1.0-4.8); ABS Monocytes 1.5 10^3/ul (0-0.8); Hematocrit 37 % (35-47); Hemoglobin 12.3 g/dL (12.0-16.0); Lymphocyte % 2.8 %; Mean Corpuscular HGB Conc 34 g/dL (31-36); Mean Corpuscular Hemoglobin 30 pg (27-31); Mean Corpuscular Volume 89 fL (80-97); Mean Platelet Volume 8.8 fL (7.4-10.4); Platelet Count 325 10^3/uL (150-450); Red Blood Count 4.11 10^6 /uL (3.70-4.87); Red Cell Distribution Width 15 % (10-15)
[2019-03-17 23:21] LABS: ALT 9 U/L (7-52); AST 10 U/L (13-39); Albumin 3.7 g/dL (3.2-5.2); Albumin/Globulin Ratio 1.1 (1-3); Alkaline Phosphatase 64 U/L (34-104); BUN/Creatinine Ratio 21.6 (8-20); Blood Urea Nitrogen 21 mg/dL (6-24); CO2 Carbon Dioxide 21 mmol/L (22-32); Chloride 103 mmol/L (101-111); EGFR African American 68.1 (>60); EGFR Non-African American 56.3 (>60); Globulin 3.5 g/dL (2-4); Glucose 127 mg/dL (70-100); Sodium 133 mmol/L (135-145); Total Protein 7.2 g/dL (6.4-8.9)
[2019-03-17 23:28] LABS: Anion Gap 9 mmol/L (2-11); Potassium 2.7 mmol/L (3.5-5.0); Troponin I 0.05 ng/mL (<0.04)
[2019-03-17] MEDS ORDERED: Potassium Chlor TAB* 20 MEQ TAB.ER PO ONE (23:33)
--- NOTE | 2019-03-17 23:36 | ED ---
Shortness of Breath - HPI Summary HPI Summary: The patient is a 73 y/o F presenting to [facility] with a chief complaint of SOB tonight. Her son came over and was eating dinner with her, but he noticed she had a decreased appetite and stated she was nauseous. Throughout his stay, her son noticed that her breathing went from her normal rate to a seemingly dyspneic appearance described as a panting. She additionally c/o fever. When prompted how the pt feels, she states that she isnt sure. Currently, her symptoms are rated 0/10 in severity. She recently had an appointment with Dr. Choi, neurology, where it was found she had a Depakote level of 51, warranting an increase in the dosage. PMHx: HLD, kidney stones, arthritis, dementia, seizures. Heavy every day smoker, no EtOH, no substance use. Medications reviewed. Allergies noted. - History of Current Complaint Chief Complaint: EDShortnessOfBreath Time Seen by Provider: 03/17/19 23:24 Hx Obtained From: Patient, Family/Kiln Feeder - son Onset/Duration: Gradual Onset, Lasting Hours, Still Present Current Severity: Mild Dyspnea At: Rest Aggravating Factors: Nothing Alleviating Factors: Nothing Associated Signs & Symptoms: Fever - Allergy/Home Medications Allergies/Adverse Reactions: Allergies Allergy/AdvReac Type Severity Reaction Status Date / Time No Known Allergies Allergy Verified 03/17/19 20:12 PMH/Surg Hx/FS Hx/Imm Hx Endocrine/Hematology History: Denies: Hx Diabetes Cardiovascular History: Reports: Hx Hypercholesterolemia, Other Cardiovascular Problems/Disorders - high cholesterol Denies: Hx Hypertension, Hx Pacemaker/ICD Respiratory History: Reports: Other Respiratory Problems/Disorders - 55 year smoker History: Reports: Hx Kidney Stones Denies: Hx Renal Disease Musculoskeletal History: Reports: Hx Arthritis - FINGERS Denies: Hx Rheumatoid Arthritis, Hx Osteoporosis Sensory History: Reports: Hx Cataracts, Hx Contacts or Glasses - GLASSES Denies: Hx Hearing Aid Opthamlomology History: Reports: Hx Cataracts, Hx Contacts or Glasses - GLASSES Neurological History: Reports: Hx Dementia, Hx Seizures, Other Neuro Impairments /Disorders - dementia Psychiatric History: Denies: Hx Panic Disorder - Cancer History Hx Chemotherapy: No Hx Radiation Therapy: No - Surgical History Surgical History: Yes Surgery Procedure, Year, and Place: HYSTERECTOMY, appendectomy. bilat cataract surgery with IOL 2015. KIDNEY STONES REMOVED 05/2017 Hx Anesthesia Reactions: No Infectious Disease History: No Infectious Disease History: Denies: Traveled Outside the [place] in Last 30 Days - Family History Known Family History: Positive: Renal Disease, Other - No FMHx of breast CA - Social History Alcohol Use: None Hx Substance Use: No Substance Use Type: Reports: None Hx Tobacco Use: Yes Smoking Status (MU): Heavy Every Day Tobacco Smoker Type: Cigarettes Amount Used/How Often: smoked for 50 years 1 ppd Length of Time of Smoking/Using Tobacco: 55 years Have You Smoked in the Last Year: Yes Review of Systems Positive: Fever Positive: Shortness Of Breath Positive: Nausea, Other - decreased appetite All Other Systems Reviewed And Are Negative: Yes Physical Exam - Summary Physical Exam Summary: Appearance: Elderly woman, No acute distress, Not appearing to be toxic but is febrile, Well-nourished, lying in bed comfortably Skin: Warm, dry, no obvious rash Eyes: sclera anicteric, no conjunctival pallor ENT: mucous membranes moist, pharynx appears normal Neck: Supple, nontender Respiratory: Clear to auscultation, no signs of respiratory distress Cardiovascular: Normal S1, S2. No murmurs. Normal distal pulses in tibial and radial bilaterally. Abdomen: Soft, nontender, normal active bowel sounds present Musculoskeletal: Normal, Strength/ROM Intact Neurological: A&Ox3, awake and alert, mentation is normal, speech is fluent and appropriate Psychiatric: affect is normal, does not appear anxious or depressed Triage Information Reviewed: Yes Vital Signs On Initial Exam: Initial Vitals Temp Pulse Resp BP Pulse Ox 103.4 F 121 18 160/73 96 03/17/19 20:09 03/17/19 20:09 03/17/19 20:09 03/17/19 20:09 03/17/19 20:09 Vital Signs Reviewed: Yes Diagnostics - Vital Signs Vital Signs Temp Pulse Resp BP Pulse Ox 03/17/19 23:19 99.6 F 03/17/19 22:21 100.9 F 113 15 121/72 97 03/17/19 20:09 103.4 F 121 18 160/73 96 - Laboratory Lab Results: Lab Results 03/17/19 03/17/19 03/17/19 Range/Units 22:49 22:49 22:49 WBC 19.0 H (3.5-10.8) 10^3/uL RBC 4.11 (3.70-4.87) 10^6 /uL Hgb 12.3 (12.0-16.0) g/dL Hct 37 (35-47) % MCV 89 (80-97) fL MCH 30 (27-31) pg MCHC 34 (31-36) g/dL RDW 15 (10-15) % Plt Count 325 (150-450) 10^3/uL MPV 8.8 (7.4-10.4) fL Neut % (Auto) 89.2 % Lymph % (Auto) 2.8 % [place] % (Auto) 7.9 % Eos % (Auto) 0.0 % Baso % (Auto) 0.1 % Absolute Neuts (auto) 17.0 H (1.5-7.7) 10^3/ul Absolute Lymphs (auto) 0.5 L (1.0-4.8) 10^3/ul Absolute Monos (auto) 1.5 H (0-0.8) 10^3/ul Absolute Eos (auto) 0.0 (0-0.6) 10^3/ul Absolute Basos (auto) 0.0 (0-0.2) 10^3/ul Absolute Nucleated RBC 0.0 10^3/ul Nucleated RBC % 0.0 Sodium 133 L (135-145) mmol/L Potassium 2.7 L* (3.5-5.0) mmol/L Chloride 103 (101-111) mmol/L Carbon Dioxide 21 L (22-32) mmol/L Anion Gap 9 (2-11) mmol/L BUN 21 (6-24) mg/dL Creatinine 0.97 H (0.51-0.95) mg/dL Est GFR ( Amer) 68.1 (>60) Est GFR (Non-Af Amer) 56.3 (>60) BUN/Creatinine Ratio 21.6 H (8-20) Glucose 127 H (70-100) mg/dL Lactic Acid 0.8 (0.5-2.0) mmol/L Calcium 9.0 (8.6-10.3) mg/dL Total Bilirubin 0.40 (0.2-1.0) mg/dL AST 10 L (13-39) U/L ALT 9 (7-52) U/L Alkaline Phosphatase 64 (34-104) U/L Troponin I 0.05 H* (<0.04) ng/mL B-Natriuretic Peptide (<=100) pg/mL Total Protein 7.2 (6.4-8.9) g/dL Albumin 3.7 (3.2-5.2) g/dL Globulin 3.5 (2-4) g/dL Albumin/Globulin Ratio 1.1 (1-3) 03/17/19 Range/Units 22:49 WBC (3.5-10.8) 10^3/uL RBC (3.70-4.87) 10^6 /uL Hgb (12.0-16.0) g/dL Hct (35-47) % MCV (80-97) fL MCH (27-31) pg MCHC (31-36) g/dL RDW (10-15) % Plt Count (150-450) 10^3/uL MPV (7.4-10.4) fL Neut % (Auto) % Lymph % (Auto) % [place] % (Auto) % Eos % (Auto) % Baso % (Auto) % Absolute Neuts (auto) (1.5-7.7) 10^3/ul Absolute Lymphs (auto) (1.0-4.8) 10^3/ul Absolute Monos (auto) (0-0.8) 10^3/ul Absolute Eos (auto) (0-0.6) 10^3/ul Absolute Basos (auto) (0-0.2) 10^3/ul Absolute Nucleated RBC 10^3/ul Nucleated RBC % Sodium (135-145) mmol/L Potassium (3.5-5.0) mmol/L Chloride (101-111) mmol/L Carbon Dioxide (22-32) mmol/L Anion Gap (2-11) mmol/L BUN (6-24) mg/dL Creatinine (0.51-0.95) mg/dL Est GFR ( Amer) (>60) Est GFR (Non-Af Amer) (>60) BUN/Creatinine Ratio (8-20) Glucose (70-100) mg/dL Lactic Acid (0.5-2.0) mmol/L Calcium (8.6-10.3) mg/dL Total Bilirubin (0.2-1.0) mg/dL AST (13-39) U/L ALT (7-52) U/L Alkaline Phosphatase (34-104) U/L Troponin I (<0.04) ng/mL B-Natriuretic Peptide 108 H (<=100) pg/mL Total Protein (6.4-8.9) g/dL Albumin (3.2-5.2) g/dL Globulin (2-4) g/dL Albumin/Globulin Ratio (1-3) Result Diagrams: 03/19/19 06:04 03/23/19 07:26 Lab Statement: Any lab studies that have been ordered have been reviewed, and results considered in the medical decision making process. - Radiology CXR Radiology Interpretation Completed By: ED Physician Summary of Radiographic Findings: CXR No acute process. ED physician has interpreted this report. Pending official report. - EKG 0000 Cardiac Rate: Tachycardia - 103 BPM EKG Rhythm: Sinus Tachycardia Summary of EKG Findings: Sinus tachycardia at 103 BPM, P waves, QRS complex, and T waves are within normal limits, T waves and intervals are normal, no ischemic changes. This is a normal EKG. ED physician has reviewed and interpreted this EKG. Course/Dx - Course Course Of Treatment: Pt is a 73 y/o F with cc of panting SOB tonight accompanied by fever, nausea, and decreased appetite. Upon physical exam, the pt is an elderly appearing women in no acute distress and not seemingly toxic but is febrile. Blood work reveals WBCs of 19.0, abs neuts of 17.0, abs lymphs of 0.5, abs monos of 1.5, sodium of 133, potassium of 2.7, carbon dioxide of 21 , creatinine of 0.97, glucose of 127, AST of 10, troponin of 0.05, and BNP of 108. EKG at 0000 reveals sinus tachycardia at 103 BPM but is otherwise normal without ischemic changes. Chest x-ray, per my interpretation, is negative. In the ED course, the pt is administered potassium chloride for hypokalemia, Tylenol for fever, and Depakote because she missed her dose tonight. UA obtained and is consistent with infection revealing 2+ protein, 2+ blood, 3+ leukocyte esterase, 3+ WBCs, 3+ RBCs, and presence of squamous epithelial cells. She is administered fluids and Ceftriaxone. Dr. Mika accepts pt for admission. Pt and son understand and agree with this plan. Dx of fever, UTI. - Diagnoses Provider Diagnoses: Fever, UTI (urinary tract infection) - Physician Notifications Discussed Care of Patient With: Rona Brennan - hospitalist Time Discussed With Above Provider: 05:15 Instructed by Provider To: Admit As Observation - I discussed the pts case with Dr. Brennan, hospitalist, who accepts the pt for admission. Discharge ED - Sign-Out/Discharge Documenting (check all that apply): Patient Departure - Patient accepted for admission by Dr. Brennan. Patient Received Moderate/Deep Sedation with Procedure: No - Discharge Plan Condition: Stable Disposition: ADMITTED TO [facility] - Billing Disposition and Condition Condition: STABLE Disposition: Admitted to [facility] - Attestation Statements Document Initiated by Ynes: Yes Documenting Scribe: Stefany Sears Provider For Whom Ynes is Documenting (Include Credential): Dr. Rory Lawrence MD Scribe Attestation: Stefany Reno scribed for Dr. Rory Lawrence MD on 03/23/19 at 1231. Scribe Documentation Reviewed: Yes Provider Attestation: The documentation as recorded by the Stefany faustin accurately reflects the service I personally performed and the decisions made by me, Dr. Rory Lawrence MD Status of Scribmaricruz Document: Viewed
[2019-03-17] MEDS ORDERED: Acetaminophen TAB* 325 MG PO ONE (23:40)
[2019-03-18] MEDS ORDERED: Divalproex ER TAB(*) 500 MG PO ONE (01:26)
[2019-03-18] MEDS ORDERED: cefTRIAXone(*) 1 GM in NS 0.9% 50 ML* 50 ML IVPB ONE (04:16)
[2019-03-18] MEDS ORDERED: NS 0.9% 50 ML* 50 ML ONE (04:53)
[2019-03-18 05:06] LABS: Urine Appearance Turbid; Urine Bacteria Absent (Absent); Urine Bilirubin Negative (Negative); Urine Blood 2+ (Negative); Urine Color Yellow; Urine Glucose Negative (Negative); Urine Ketones Negative (Negative); Urine Nitrite Negative (Negative); Urine Protein 2+(100 mg/dL) (Negative); Urine Red Blood Cell 3+(>10/hpf) (Absent); Urine Specific Gravity 1.012 (1.010-1.030); Urine Squamous Epithelial Cell Present (Absent); Urine Urobilinogen Negative (Negative); Urine White Blood Cell 3+(>20/hpf) (Absent)
[2019-03-18] MEDS ORDERED: Potassium Chlor TAB* 20 MEQ TAB.ER PO ONE (06:13)
[2019-03-18 07:31] LABS: Troponin I 0.04 ng/mL (<0.04)
--- NOTE | 2019-03-18 08:15 | HP ---
CC: Dr. Schulz HISTORY AND PHYSICAL: DATE OF ADMISSION: 03/18/19 PRIMARY CARE PROVIDER: Dr. Schulz. NEUROLOGIST: Dr. Choi. CHIEF COMPLAINT: Poor appetite, headache and shuffling gait. HISTORY OF PRESENT ILLNESS: Ms. Tilley is a 73-year-old female who was brought to the emergency room by her son due to her not acting usual. He went over to check on his mom. She complained of headac he and backache. He was in the process of calling her PCP's office to make an appointment when he no ticed that her breathing pattern changed. She was having short shallow breaths. He decided that he did not want to wait until today for evaluation and therefore brought her to the emergency room. The patient herself answered no to all my questions including chest pain, shortness of breath, abdominal pain, burning or pain with urination. The patient's son also states that he believes she has been e ating breakfast, but it is unclear if she has been eating throughout the rest of the day. He is also not sure if she has been taking her meds as prescribed. Of note, the patient's on 07/13. A friend has been helping to take care of her, but he has not been paying very close attention as to whether or not she has been taking her meds as she is supposed to. PAST MEDICAL HISTORY: 1. Epilepsy with last seizure approximately 1-1/2 months ago. 2. Hyperlipidemia. 3. Depression. 4. Osteoporosis. PAST SURGICAL HISTORY: 1. Ureteral stent. 2. Hysterectomy. MEDICATIONS: 1. Depakote DR 500 mg p.o. b.i.d. 2. Lipitor 10 mg p.o. daily. 3. Ibuprofen 800 mg p.o. b.i.d. p.r.n. pain. ALLERGIES: No known drug allergies. FAMILY HISTORY: Unknown as the patient is estranged from her family. SOCIAL HISTORY: The patient smokes one pack per day and has done so since her teens. She does not d rink alcohol. She was a previous home health aide. She is . REVIEW OF SYSTEMS: A complete 11-system review of systems was obtained. Pertinent positive and nega tives are as per HPI and otherwise negative. PHYSICAL EXAMINATION GENERAL: The patient is a well-developed, petite elderly female seen sleeping in the stretcher in no acute distress. VITAL SIGNS: Blood pressure 113/61, pulse 77, respirations 21, temp 99.6, T-max 103.4, O2 sat 95% on room air. HEENT: There is evidence of prior cataract extractions. Extraocular muscles are intact. Oropharynx is clear. Oral mucosa is moist. The patient wears upper dentures. NECK: There is no submandibular, cervical or supraclavicular adenopathy. Thyroid is not enlarged. No thyroid nodules are noted. PULMONARY: Breath sounds are diminished at the bases, but otherwise clear. CARDIAC: Normal S1, S2. Regular rate and rhythm. I do not appreciate any murmurs. There is no low er extremity edema. ABDOMEN: Bowel sounds present. Abdomen is soft, nontender, nondistended. MUSCULOSKELETAL: The patient moves all 4 extremities symmetrically. NEUROLOGIC: Cranial nerves II through XII are grossly intact. Sensation is intact to light touch th roughout. Strength is 5/5 and symmetric in both upper and lower extremities bilaterally. SKIN: Visible areas of skin are warm and dry and without rash. PSYCH: The patient is drowsy. She sleeps through most of my interview. Once awake, she quickly fal ls back asleep. DIAGNOSTIC STUDIES/LAB DATA: WBC 19.0, hemoglobin 12.3, hematocrit 37, platelets 325. Sodium 133, potassium 2.7, chloride 103, CO2 21, BUN 21, creatinine 0.97, glucose 127, lactic acid 0.8, calcium 9 .0. Bilirubin 0.4, AST 10, ALT 9, alk phos 64. Troponin 0.05. BNP 108. Albumin 3.7. EKG reveals normal sinus rhythm with biphasic Ts in the anterior leads with perhaps slight ST depress ion anteriorly. Otherwise, no acute findings. Chest x-ray to my interpretation reveals hyperinflation and no evidence of infiltrate. ASSESSMENT AND PLAN: Ms. Tilley is 73-year-old female who has a history of epilepsy, hyperlipidemia and dementia, who is brought to the emergency room after her son noted change in respiratory pattern in the setting of patient likely not eating/drinking well following the of her . 1. Febrile illness. The patient was found to have a fever of 103.4. This broke while in the emerge ncy room. Source is unclear, though I am suspicious that it may be her urine. Her urine reportedly had a very foul smell. The urinalysis, however, is negative for nitrites and bacteria. I suspect, h owever, this will still be cultured. We will await results. Chest x-ray appears clear and without s igns of infiltrate. It is possible she has just basic viral illness. She will be monitored in the h ospital and will be treated with ceftriaxone 1 g IV q.24 hours for a possible urinary tract infection . 2. Hypokalemia. Potassium is low at 2.7. I suspect this is likely related to poor oral intake. Jessica alcantara has received 40 mEq of potassium in the ER and will receive another 20 mEq. 3. Elevated troponin. The patient's troponin is mildly elevated at 0.05. She denies any complaints of chest pain. EKG did not have any significantly concerning features. Followup troponin will be o btained now. 4. Volume depletion in the patient. I suspect slightly volume deplete likely from poor oral intake. Her creatinine is up slightly from her baseline. She will be receiving normal saline. The [facility] radha l be followed up tomorrow. 5. Epilepsy. We will continue Depakote DR 500 mg p.o. twice daily. Depakote level will be added on to the ER labs. 6. Hyperlipidemia. Continue Lipitor. 7. Dementia. We will continue supportive care. 8. DVT prophylaxis. According to the Adult Thrombosis Prophylaxis Risk Factor Assessment Guide, the patient has a total risk factor score of 3, making her high risk. She will be placed on Lovenox 40 mg subcutaneous daily. 9. Code status is full. TIME SPENT: Fifty five minutes was spent admitting this patient. [id number]/[facility] #: [id number]
[2019-03-18] MEDS: Divalproex DR TAB(*) 500 MG PO SCH ×2 (08:39→21:25)
[2019-03-18] MEDS: Atorvastatin* 10 MG TAB PO SCH (08:39)
[2019-03-18] MEDS: NS 0.9% 1000 ML** 1,000 ML IV SCH ×2 (08:39→21:32)
[2019-03-18] MEDS ORDERED: metroNIDAZOLE IV 500 MG/100ML* 500 MG/100 ML BAG IVPB SCH (13:30)
[2019-03-18 14:25] LABS: Troponin I 0.04 ng/mL (<0.04)
--- NOTE | 2019-03-18 17:05 | PN ---
Subjective Date of Service: 03/18/19 Interval History: Ms. Tilley is feeling okay this morning. She is tired and upset that I woke her. She offers no other complaints. She knows she is in the hospital, but is not sure why. She denies CP, SOB, N/V, dysuria. Nursing reported that patient c/o CP when she arrived on the floor, but patient does not remember this and does not think she ever had any CP. Family History: Unchanged from Admission Social History: Unchanged from Admission Past Medical History: Unchanged from Admission Objective Active Medications: Acetaminophen (Tylenol Tab*) 650 mg PO Q4H PRN MILD PAIN or TEMP > 100.4 Atorvastatin Calcium (Lipitor*) 10 mg PO DAILY ANDREW Divalproex Sodium (Depakote Dr Tab(*)) 500 mg PO BID ANDREW Enoxaparin Sodium (Lovenox(*)) 40 mg SUBCUT Q24H ANDREW Sodium Chloride (Ns 0.9% 1000 Ml) 1,000 mls @ 75 mls/hr IV PER RATE ANDREW Ceftriaxone Sodium 1 gm/ (Sodium Chloride) 50 mls @ 100 mls/hr IVPB Q24H ANDREW Metronidazole/Sodium Chloride (Flagyl 500 Mg Ivpb*) 500 mg in 100 mls @ 100 mls /hr IVPB Q8H ANDREW Vital Signs - 8 hr 03/18/19 03/18/19 03/18/19 09:01 09:08 09:38 Temperature Pulse Rate 98 Respiratory 26 30 28 Rate Blood Pressure 147/69 142/81 (mmHg) O2 Sat by Pulse 94 Oximetry 03/18/19 03/18/19 03/18/19 10:00 10:08 10:10 Temperature 100.9 F Pulse Rate Respiratory 31 29 Rate Blood Pressure 146/74 (mmHg) O2 Sat by Pulse Oximetry 03/18/19 03/18/19 03/18/19 10:16 11:26 15:15 Temperature 100.9 F 98.8 F 98.9 F Pulse Rate 95 103 97 Respiratory 20 26 17 Rate Blood Pressure 146/74 137/62 160/76 (mmHg) O2 Sat by Pulse 97 100 100 Oximetry Oxygen Devices in Use Now: Nasal Cannula - 2L Appearance: Elderly female laying in bed in NAD Ears/Nose/Mouth/Throat: Mucous Membranes Moist Neck: NL Appearance and Movements; NL JVP, Trachea Midline Respiratory: Symmetrical Chest Expansion and Respiratory Effort, Clear to Auscultation Cardiovascular: NL Sounds; No Murmurs; No JVD, RRR Abdominal: NL Sounds; No Tenderness; No Distention Extremities: No Edema Neurological: - - Oriented to self and place Lines/Tubes/Other Access: Clean, Dry and Intact Peripheral IV Nutrition: Taking PO's Result Diagrams: 03/17/19 22:49 03/17/19 22:49 Assess/Plan/Problems-Billing Assessment: Ms. Tilley is a 73 yo F with PMH of seizures, HLD, and depression; who presented to the ED with c/o headache and was found to be febrile, meeting sepsis criteria, presumed to be urinary source. - Patient Problems (1) Bacteremia Code(s): R78.81 - BACTEREMIA Comment: - 4/4 bottles positive for gram negative bacilli - Suspect urinary source, E. coli - Continue ceftriaxone (2) Sepsis Comment: - Met criteria on admission with leukocytosis, tachycardia, tachypnea - Source is bacteremia, unclear origin source - Plan as above (3) Hypokalemia Code(s): E87.6 - HYPOKALEMIA Comment: - Replete and recheck BMP in AM (4) Elevated troponin Code(s): R74.8 - ABNORMAL LEVELS OF OTHER SERUM ENZYMES Comment: - Suspect demand ischemia (5) Seizure disorder Code(s): G40.909 - EPILEPSY, UNSP, NOT INTRACTABLE, WITHOUT STATUS EPILEPTICUS Comment: - Continue Depakote (6) Dementia Code(s): F03.90 - UNSPECIFIED DEMENTIA WITHOUT BEHAVIORAL DISTURBANCE Comment : - Supportive care (7) HLD (hyperlipidemia) Code(s): E78.5 - HYPERLIPIDEMIA, UNSPECIFIED Comment: - Continue atorvastatin (8) DVT prophylaxis Comment: - Lovenox (9) Full code status Code(s): Z78.9 - OTHER SPECIFIED HEALTH STATUS Comment: Status and Disposition: Inpatient. Anticipate d/c home vs PETR when medically stable. Attending: Shena Samuels
[2019-03-18 19:20] LABS: Troponin I 0.05 ng/mL (<0.04)
[2019-03-18] MEDS: Enoxaparin(*) 40 MG/0.4 ML SYR SUBCUT SCH (21:25)
[2019-03-19] MEDS ORDERED: cefTRIAXone(*) 1 GM in NS 0.9% 50 ML* 50 ML IVPB SCH (01:00)
[2019-03-19] MEDS: cefTRIAXone(*) 1 GM in NS 0.9% 50 ML* 50 ML IVPB SCH (05:02)
[2019-03-19] MEDS: Acetaminophen TAB* 325 MG PO PRN ×2 (05:05→09:29)
[2019-03-19 06:21] LABS: ABS Lymphocytes 0.5 10^3/ul (1.0-4.8); ABS Monocytes 1.1 10^3/ul (0-0.8); ABS Neutrophils 8.7 10^3/ul (1.5-7.7); Eosinophil % 0.2 %; Hematocrit 31 % (35-47); Hemoglobin 10.1 g/dL (12.0-16.0); Lymphocyte % 4.9 %; Mean Corpuscular HGB Conc 33 g/dL (31-36); Mean Corpuscular Hemoglobin 29 pg (27-31); Mean Corpuscular Volume 90 fL (80-97); Mean Platelet Volume 8.7 fL (7.4-10.4); Platelet Count 259 10^3/uL (150-450); Red Blood Count 3.43 10^6 /uL (3.70-4.87); Red Cell Distribution Width 15 % (10-15); White Blood Count 10.4 10^3/uL (3.5-10.8)
[2019-03-19 06:35] LABS: Calcium 8.2 mg/dL (8.6-10.3); EGFR African American 77.2 (>60); EGFR Non-African American 63.8 (>60); Potassium 3.2 mmol/L (3.5-5.0)
[2019-03-19] MEDS: Divalproex DR TAB(*) 500 MG PO SCH ×2 (08:22→20:13)
[2019-03-19] MEDS: Atorvastatin* 10 MG TAB PO SCH (08:24)
[2019-03-19] MEDS: NS 0.9% 1000 ML** 1,000 ML IV SCH (13:20)
--- NOTE | 2019-03-19 17:11 | PN ---
Subjective Date of Service: 03/19/19 Interval History: Patient seen and examined. No acute overnight events. Patient working with PT this morning. She denies SOB, no chest pain, no abdominal pain, no fevers or chills. No urinary complaints. Family History: Unchanged from Admission Social History: Unchanged from Admission Past Medical History: Unchanged from Admission Objective Active Medications: Acetaminophen (Tylenol Tab*) 650 mg PO Q4H PRN PRN Reason: MILD PAIN or TEMP > 100.4 Last Admin: 03/19/19 09:29 Dose: 650 mg Atorvastatin Calcium (Lipitor*) 10 mg PO DAILY [facility] Last Admin: 03/19/19 08:24 Dose: 10 mg Divalproex Sodium (Depakote Dr Tab(*)) 500 mg PO BID [facility] Last Admin: 03/19/19 08:22 Dose: 500 mg Enoxaparin Sodium (Lovenox(*)) 40 mg SUBCUT Q24H [facility] Last Admin: 03/18/19 21:25 Dose: 40 mg Sodium Chloride (Ns 0.9% 1000 Ml) 1,000 mls @ 75 mls/hr IV PER RATE [facility] Last Admin: 03/19/19 13:20 Dose: 75 mls/hr Ceftriaxone Sodium 1 gm/ (Sodium Chloride) 50 mls @ 100 mls/hr IVPB Q24H [facility] Last Admin: 03/19/19 05:02 Dose: 100 mls/hr Vital Signs - 8 hr 03/19/19 03/19/19 11:15 15:09 Temperature 98.5 F 97.6 F Pulse Rate 90 93 Respiratory 20 16 Rate Blood Pressure 136/63 124/81 (mmHg) O2 Sat by Pulse 95 97 Oximetry Oxygen Devices in Use Now: Nasal Cannula Appearance: alert, forgetful, NAD Eyes: PERRLA Ears/Nose/Mouth/Throat: Mucous Membranes Moist Neck: NL Appearance and Movements; NL JVP, Trachea Midline Respiratory: Symmetrical Chest Expansion and Respiratory Effort, - - diminished lung wu, no rhonchi or rales Cardiovascular: NL Sounds; No Murmurs; No JVD, RRR Extremities: No Edema Skin: No Rash or Ulcers Neurological: - - A&Ox2, general weakness Nutrition: Taking PO's - Result Diagrams: 03/19/19 06:04 03/19/19 06:04 Additional Lab and Data: Lab Results 03/17/19 03/17/19 03/17/19 Range/Units 22:49 22:49 22:49 WBC 19.0 H (3.5-10.8) 10^3/uL RBC 4.11 (3.70-4.87) 10^6 /uL Hgb 12.3 (12.0-16.0) g/dL Hct 37 (35-47) % MCV 89 (80-97) fL MCH 30 (27-31) pg MCHC 34 (31-36) g/dL RDW 15 (10-15) % Plt Count 325 (150-450) 10^3/uL MPV 8.8 (7.4-10.4) fL Neut % (Auto) 89.2 % Lymph % (Auto) 2.8 % [place] % (Auto) 7.9 % Eos % (Auto) 0.0 % Baso % (Auto) 0.1 % Absolute Neuts (auto) 17.0 H (1.5-7.7) 10^3/ul Absolute Lymphs (auto) 0.5 L (1.0-4.8) 10^3/ul Absolute Monos (auto) 1.5 H (0-0.8) 10^3/ul Absolute Eos (auto) 0.0 (0-0.6) 10^3/ul Absolute Basos (auto) 0.0 (0-0.2) 10^3/ul Absolute Nucleated RBC 0.0 10^3/ul Nucleated RBC % 0.0 Sodium 133 L (135-145) mmol/L Potassium 2.7 L* (3.5-5.0) mmol/L Chloride 103 (101-111) mmol/L Carbon Dioxide 21 L (22-32) mmol/L Anion Gap 9 (2-11) mmol/L BUN 21 (6-24) mg/dL Creatinine 0.97 H (0.51-0.95) mg/dL Est GFR ( Amer) 68.1 (>60) Est GFR (Non-Af Amer) 56.3 (>60) BUN/Creatinine Ratio 21.6 H (8-20) Glucose 127 H (70-100) mg/dL Lactic Acid 0.8 (0.5-2.0) mmol/L Calcium 9.0 (8.6-10.3) mg/dL Total Bilirubin 0.40 (0.2-1.0) mg/dL AST 10 L (13-39) U/L ALT 9 (7-52) U/L Alkaline Phosphatase 64 (34-104) U/L Troponin I 0.05 H* (<0.04) ng/mL B-Natriuretic Peptide (<=100) pg/mL Total Protein 7.2 (6.4-8.9) g/dL Albumin 3.7 (3.2-5.2) g/dL Globulin 3.5 (2-4) g/dL Albumin/Globulin Ratio 1.1 (1-3) 03/17/19 Range/Units 22:49 WBC (3.5-10.8) 10^3/uL RBC (3.70-4.87) 10^6 /uL Hgb (12.0-16.0) g/dL Hct (35-47) % MCV (80-97) fL MCH (27-31) pg MCHC (31-36) g/dL RDW (10-15) % Plt Count (150-450) 10^3/uL MPV (7.4-10.4) fL Neut % (Auto) % Lymph % (Auto) % [place] % (Auto) % Eos % (Auto) % Baso % (Auto) % Absolute Neuts (auto) (1.5-7.7) 10^3/ul Absolute Lymphs (auto) (1.0-4.8) 10^3/ul Absolute Monos (auto) (0-0.8) 10^3/ul Absolute Eos (auto) (0-0.6) 10^3/ul Absolute Basos (auto) (0-0.2) 10^3/ul Absolute Nucleated RBC 10^3/ul Nucleated RBC % Sodium (135-145) mmol/L Potassium (3.5-5.0) mmol/L Chloride (101-111) mmol/L Carbon Dioxide (22-32) mmol/L Anion Gap (2-11) mmol/L BUN (6-24) mg/dL Creatinine (0.51-0.95) mg/dL Est GFR ( Amer) (>60) Est GFR (Non-Af Amer) (>60) BUN/Creatinine Ratio (8-20) Glucose (70-100) mg/dL Lactic Acid (0.5-2.0) mmol/L Calcium (8.6-10.3) mg/dL Total Bilirubin (0.2-1.0) mg/dL AST (13-39) U/L ALT (7-52) U/L Alkaline Phosphatase (34-104) U/L Troponin I (<0.04) ng/mL B-Natriuretic Peptide 108 H (<=100) pg/mL Total Protein (6.4-8.9) g/dL Albumin (3.2-5.2) g/dL Globulin (2-4) g/dL Albumin/Globulin Ratio (1-3) Microbiology and Other Data: Microbiology 03/17/19 22:49 Aerobic Blood Culture - Preliminary Blood Venous Escherichia Coli Anaerobic Blood Culture - Preliminary Escherichia Coli 03/18/19 04:33 Urine Culture - Preliminary Urine Escherichia Coli 03/17/19 22:49 Aerobic Blood Culture - Preliminary Blood Venous Escherichia Coli Anaerobic Blood Culture - Preliminary Escherichia Coli Diagnostic Imaging: Patient Name: WALLACE STEVENSON Medical Record#: [id number] Ordering Physician: Ayah Hall NP Acct.#: [id number] : 1945 Age: 73 Sex: F Location: [address] [place] [address] MEDICAL/TELEMETRY Exam Date: 03/18/191753 ADM Status: ADM IN Order Information: US RENAL AND BLADDER Accession Number: [id number] CPT: 00246 PROCEDURE INFORMATION: Exam: US Retroperitoneal Complete. Exam date and time: 03/18/2019 9:30 PM Clinical history: 73 years old, female; Other: UTI TECHNIQUE: Imaging protocol: Real-time ultrasound of the retroperitoneum with image documentation. Complete exam. COMPARISON: OT KUB ABDOMEN/KUB 1 VW 01/14/2018 12:56 PM FINDINGS: Gallbladder: No right-sided hydronephrosis or calculi. Right kidney: No stones. No hydronephrosis. Left kidney: There is mild to moderate left hydronephrosis with no visible left-sided calculi. There is a small mildly complicated septated cyst in the interpolar left kidney measuring a maximum of 1.3 cm and there is an additional mildly complicated septated cyst in the superior pole left kidney measuring a maximum of 1.8 cm. Bladder: Prevoid urinary bladder volume 96 cc and post void residual volume 33 cc. A right ureteral jet was visualized with a left ureteral jet was not visible during the exam. IMPRESSION: There is mild to moderate left hydronephrosis with no visible left-sided calculi. To contact [facility] with a general question: [facility] - [phone] For direct physician to physician contact: Physician Hotline - [phone] [facility] ([facility] Facility ID #[id number]) Assess/Plan/Problems-Billing Assessment: Ms. Stevenson is a 73 yo F with PMH of seizures, HLD, and depression; who presented to the ED with c/o headache and was found to be febrile, meeting sepsis criteria, presumed to be urinary source. - Patient Problems (1) Bacteremia Code(s): R78.81 - BACTEREMIA SNOMED Code(s): 1177531 Comment: - 4/4 bottles positive for gram negative bacilli/eColi - Urinary source, E. coli - Continue ceftriaxone and await susceptibilities (2) Elevated troponin Code(s): R74.8 - ABNORMAL LEVELS OF OTHER SERUM ENZYMES SNOMED Code(s): 174454009 Comment: - Suspect demand ischemia, no anginal equivalents (3) Sepsis Comment: - Met criteria on admission with leukocytosis, tachycardia, tachypnea - Source is urine, eColi - Plan as above (4) UTI (urinary tract infection) Comment: - Micro with eColi, continue ceftriaxone (5) Hypokalemia Code(s): E87.6 - HYPOKALEMIA SNOMED Code(s): 69244547 Comment: - Repleted (6) COPD (chronic obstructive pulmonary disease) Code(s): J44.9 - CHRONIC OBSTRUCTIVE PULMONARY DISEASE, UNSPECIFIED SNOMED Code(s): 57894292 Comment: - No signs of acute exacerbation, remains on O2 with adequate saturations (7) Dementia Code(s): F03.90 - UNSPECIFIED DEMENTIA WITHOUT BEHAVIORAL DISTURBANCE SNOMED Code(s): 18715729 Comment: - Supportive care, question capacity, as she is refusing rehab. Will let her son discuss this with her this evening and determine plan in AM. (8) HLD (hyperlipidemia) Code(s): E78.5 - HYPERLIPIDEMIA, UNSPECIFIED SNOMED Code(s): 79320141 Comment: - Continue atorvastatin (9) Seizure disorder Code(s): G40.909 - EPILEPSY, UNSP, NOT INTRACTABLE, WITHOUT STATUS EPILEPTICUS SNOMED Code(s): 331299979 Comment: - Continue Depakote (10) DVT prophylaxis Code(s): MWX2955 - SNOMED Code(s): 742588345 Comment: - Lovenox (11) Full code status Code(s): Z78.9 - OTHER SPECIFIED HEALTH STATUS SNOMED Code(s): 800120040 Comment: Status and Disposition: Inpatient. Dispo PETR when medically stable.
[2019-03-19] MEDS: Enoxaparin(*) 40 MG/0.4 ML SYR SUBCUT SCH (20:13)
[2019-03-20] MEDS: NS 0.9% 1000 ML** 1,000 ML IV SCH (04:10)
[2019-03-20] MEDS: cefTRIAXone(*) 1 GM in NS 0.9% 50 ML* 50 ML IVPB SCH (04:11)
[2019-03-20 06:22] LABS: BUN/Creatinine Ratio 21.3 (8-20); Calcium 8.8 mg/dL (8.6-10.3); EGFR African American 91.7 (>60); EGFR Non-African American 75.7 (>60); Potassium 2.9 mmol/L (3.5-5.0)
[2019-03-20] MEDS ORDERED: Potassium Chlor TAB* 20 MEQ TAB.ER PO ONE ×2 (08:32→16:14)
[2019-03-20 08:54] LABS: Magnesium 1.4 mg/dL (1.9-2.7)
[2019-03-20] MEDS ORDERED: ASA-APAP-CAFFEINE ES (NF) 1 TAB TAB PO PRN (09:52)
[2019-03-20] MEDS: Acetaminophen TAB* 325 MG PO PRN ×2 (10:50→19:39)
[2019-03-20] MEDS: Divalproex DR TAB(*) 500 MG PO SCH ×2 (10:56→21:50)
[2019-03-20] MEDS: Atorvastatin* 10 MG TAB PO SCH (10:57)
[2019-03-20] MEDS: KCL 10 MEQ/50 ML IVPREMIX* 10 MEQ/50 ML BAG IV SCH ×3 (10:58→21:50)
[2019-03-20] MEDS ORDERED: Magnesium Sulf 4 GM/100 ML IV* 4,000 MG/100 ML BAG IVPB ONE (16:15)
--- NOTE | 2019-03-20 16:20 | PN ---
Subjective Date of Service: 03/20/19 Interval History: Patient seen and examined. Appears tired today. Does not recognize me today. Electrolytes are low, patient states she has no pain, no SOB, some cough, no fevers. No acute overnight events. Family History: Unchanged from Admission Social History: Unchanged from Admission Past Medical History: Unchanged from Admission Objective Active Medications: Acetam/Aspirin/Caff/Calcium Glucon (Excedrin Extra Strength 250-250-65 Mg (Nf)) 2 tab PO Q6H PRN PRN Reason: HEADACHE Acetaminophen (Tylenol Tab*) 650 mg PO Q4H PRN PRN Reason: MILD PAIN or TEMP > 100.4 Last Admin: 03/20/19 10:50 Dose: 650 mg Atorvastatin Calcium (Lipitor*) 10 mg PO DAILY [facility] Last Admin: 03/20/19 10:57 Dose: 10 mg Divalproex Sodium (Depakote Dr Tab(*)) 500 mg PO BID [facility] Last Admin: 03/20/19 10:56 Dose: 500 mg Enoxaparin Sodium (Lovenox(*)) 40 mg SUBCUT Q24H [facility] Last Admin: 03/19/19 20:13 Dose: 40 mg Ceftriaxone Sodium 1 gm/ (Sodium Chloride) 50 mls @ 100 mls/hr IVPB Q24H [facility] Last Admin: 03/20/19 04:11 Dose: 100 mls/hr Potassium Chloride (Potassium Chloride 10 Meq/50 Ml Ivpremix*) 10 meq in 50 mls @ 50 mls/hr IV Q2H [facility] Stop: 03/20/19 19:59 Magnesium Sulfate (Magnesium Sulf 4 Gm/100 Ml Iv*) 4,000 mg in 100 mls @ 33.333 mls/hr IVPB ONCE ONE Stop: 03/20/19 19:14 Potassium Chloride (Klor Con Er Tab*) 40 meq PO ONCE ONE Stop: 03/20/19 16:15 Vital Signs - 8 hr 03/20/19 03/20/19 03/20/19 08:30 08:55 11:15 Temperature 97.7 F 97.9 F 98.4 F Pulse Rate 82 88 87 Respiratory 20 18 20 Rate Blood Pressure 144/80 151/75 150/83 (mmHg) O2 Sat by Pulse 98 97 98 Oximetry Oxygen Devices in Use Now: Nasal Cannula Appearance: alert, but tired appearing, NAD Eyes: PERRLA Ears/Nose/Mouth/Throat: Mucous Membranes Moist Neck: NL Appearance and Movements; NL JVP, Trachea Midline Respiratory: Symmetrical Chest Expansion and Respiratory Effort, Clear to Auscultation Cardiovascular: NL Sounds; No Murmurs; No JVD, RRR, No Edema Abdominal: NL Sounds; No Tenderness; No Distention, No Hepatosplenomegaly Extremities: No Edema Skin: No Rash or Ulcers Neurological: - - A&Ox2 Nutrition: Taking PO's Result Diagrams: 03/19/19 06:04 03/20/19 05:03 Additional Lab and Data: Lab Results 03/17/19 03/17/19 03/17/19 Range/Units 22:49 22:49 22:49 WBC 19.0 H (3.5-10.8) 10^3/uL RBC 4.11 (3.70-4.87) 10^6 /uL Hgb 12.3 (12.0-16.0) g/dL Hct 37 (35-47) % MCV 89 (80-97) fL MCH 30 (27-31) pg MCHC 34 (31-36) g/dL RDW 15 (10-15) % Plt Count 325 (150-450) 10^3/uL MPV 8.8 (7.4-10.4) fL Neut % (Auto) 89.2 % Lymph % (Auto) 2.8 % [place] % (Auto) 7.9 % Eos % (Auto) 0.0 % Baso % (Auto) 0.1 % Absolute Neuts (auto) 17.0 H (1.5-7.7) 10^3/ul Absolute Lymphs (auto) 0.5 L (1.0-4.8) 10^3/ul Absolute Monos (auto) 1.5 H (0-0.8) 10^3/ul Absolute Eos (auto) 0.0 (0-0.6) 10^3/ul Absolute Basos (auto) 0.0 (0-0.2) 10^3/ul Absolute Nucleated RBC 0.0 10^3/ul Nucleated RBC % 0.0 Sodium 133 L (135-145) mmol/L Potassium 2.7 L* (3.5-5.0) mmol/L Chloride 103 (101-111) mmol/L Carbon Dioxide 21 L (22-32) mmol/L Anion Gap 9 (2-11) mmol/L BUN 21 (6-24) mg/dL Creatinine 0.97 H (0.51-0.95) mg/dL Est GFR ( Amer) 68.1 (>60) Est GFR (Non-Af Amer) 56.3 (>60) BUN/Creatinine Ratio 21.6 H (8-20) Glucose 127 H (70-100) mg/dL Lactic Acid 0.8 (0.5-2.0) mmol/L Calcium 9.0 (8.6-10.3) mg/dL Total Bilirubin 0.40 (0.2-1.0) mg/dL AST 10 L (13-39) U/L ALT 9 (7-52) U/L Alkaline Phosphatase 64 (34-104) U/L Troponin I 0.05 H* (<0.04) ng/mL B-Natriuretic Peptide (<=100) pg/mL Total Protein 7.2 (6.4-8.9) g/dL Albumin 3.7 (3.2-5.2) g/dL Globulin 3.5 (2-4) g/dL Albumin/Globulin Ratio 1.1 (1-3) 03/17/19 Range/Units 22:49 WBC (3.5-10.8) 10^3/uL RBC (3.70-4.87) 10^6 /uL Hgb (12.0-16.0) g/dL Hct (35-47) % MCV (80-97) fL MCH (27-31) pg MCHC (31-36) g/dL RDW (10-15) % Plt Count (150-450) 10^3/uL MPV (7.4-10.4) fL Neut % (Auto) % Lymph % (Auto) % [place] % (Auto) % Eos % (Auto) % Baso % (Auto) % Absolute Neuts (auto) (1.5-7.7) 10^3/ul Absolute Lymphs (auto) (1.0-4.8) 10^3/ul Absolute Monos (auto) (0-0.8) 10^3/ul Absolute Eos (auto) (0-0.6) 10^3/ul Absolute Basos (auto) (0-0.2) 10^3/ul Absolute Nucleated RBC 10^3/ul Nucleated RBC % Sodium (135-145) mmol/L Potassium (3.5-5.0) mmol/L Chloride (101-111) mmol/L Carbon Dioxide (22-32) mmol/L Anion Gap (2-11) mmol/L BUN (6-24) mg/dL Creatinine (0.51-0.95) mg/dL Est GFR ( Amer) (>60) Est GFR (Non-Af Amer) (>60) BUN/Creatinine Ratio (8-20) Glucose (70-100) mg/dL Lactic Acid (0.5-2.0) mmol/L Calcium (8.6-10.3) mg/dL Total Bilirubin (0.2-1.0) mg/dL AST (13-39) U/L ALT (7-52) U/L Alkaline Phosphatase (34-104) U/L Troponin I (<0.04) ng/mL B-Natriuretic Peptide 108 H (<=100) pg/mL Total Protein (6.4-8.9) g/dL Albumin (3.2-5.2) g/dL Globulin (2-4) g/dL Albumin/Globulin Ratio (1-3) Microbiology and Other Data: Microbiology 03/17/19 22:49 Aerobic Blood Culture - Preliminary Blood Venous Escherichia Coli Anaerobic Blood Culture - Preliminary Escherichia Coli 03/18/19 04:33 Urine Culture - Preliminary Urine Escherichia Coli 03/17/19 22:49 Aerobic Blood Culture - Preliminary Blood Venous Escherichia Coli Anaerobic Blood Culture - Preliminary Escherichia Coli Diagnostic Imaging: Patient Name: WALLACE STEVENSON Medical Record#: [id number] Ordering Physician: Ayah Hall NP Acct.#: [id number] : 1945 Age: 73 Sex: F Location: [address] [place] [address]/TELEMETRY Exam Date: 03/18/191753 ADM Status: ADM IN Order Information: US RENAL AND BLADDER Accession Number: [id number] CPT: 50745 PROCEDURE INFORMATION: Exam: US Retroperitoneal Complete. Exam date and time: 03/18/2019 9:30 PM Clinical history: 73 years old, female; Other: UTI TECHNIQUE: Imaging protocol: Real-time ultrasound of the retroperitoneum with image documentation. Complete exam. COMPARISON: OT KUB ABDOMEN/KUB 1 VW 01/14/2018 12:56 PM FINDINGS: Gallbladder: No right-sided hydronephrosis or calculi. Right kidney: No stones. No hydronephrosis. Left kidney: There is mild to moderate left hydronephrosis with no visible left-sided calculi. There is a small mildly complicated septated cyst in the interpolar left kidney measuring a maximum of 1.3 cm and there is an additional mildly complicated septated cyst in the superior pole left kidney measuring a maximum of 1.8 cm. Bladder: Prevoid urinary bladder volume 96 cc and post void residual volume 33 cc. A right ureteral jet was visualized with a left ureteral jet was not visible during the exam. IMPRESSION: There is mild to moderate left hydronephrosis with no visible left-sided calculi. To contact [facility] with a general question: [facility] - [phone] For direct physician to physician contact: Physician Hotline - [phone] [facility] ([facility] Facility ID #[id number]) Assess/Plan/Problems-Billing Assessment: Ms. Stevenson is a 73 yo F with PMH of seizures, HLD, and depression; who presented to the ED with c/o headache and was found to be febrile, meeting sepsis criteria, presumed to be urinary source. - Patient Problems (1) Bacteremia Code(s): R78.81 - BACTEREMIA SNOMED Code(s): 1010554 Comment: - 4/4 bottles positive for gram negative bacilli/eColi - Urinary source, E. coli - Continue ceftriaxone and await susceptibilities (2) Elevated troponin Code(s): R74.8 - ABNORMAL LEVELS OF OTHER SERUM ENZYMES SNOMED Code(s): 242327135 Comment: - Suspect demand ischemia, no anginal equivalents (3) Sepsis Comment: - Met criteria on admission with leukocytosis, tachycardia, tachypnea - Source is urine, eColi - Plan as above (4) UTI (urinary tract infection) Comment: - Micro with eColi, continue ceftriaxone (5) Hypokalemia Code(s): E87.6 - HYPOKALEMIA SNOMED Code(s): 81671777 Comment: - Persistent with hypomagnesemia, continue to replete and monitor labs (6) COPD (chronic obstructive pulmonary disease) Code(s): J44.9 - CHRONIC OBSTRUCTIVE PULMONARY DISEASE, UNSPECIFIED SNOMED Code(s): 86272817 Comment: - No signs of acute exacerbation, remains on O2 with adequate saturations (7) Dementia Code(s): F03.90 - UNSPECIFIED DEMENTIA WITHOUT BEHAVIORAL DISTURBANCE SNOMED Code(s): 77470779 Comment: - Supportive care, question capacity, as she is refusing rehab. Will let her son discuss this with her this evening and determine plan in AM. (8) HLD (hyperlipidemia) Code(s): E78.5 - HYPERLIPIDEMIA, UNSPECIFIED SNOMED Code(s): 38304821 Comment: - Continue atorvastatin (9) Seizure disorder Code(s): G40.909 - EPILEPSY, UNSP, NOT INTRACTABLE, WITHOUT STATUS EPILEPTICUS SNOMED Code(s): 738672609 Comment: - Continue Depakote (10) DVT prophylaxis Code(s): BSZ2058 - SNOMED Code(s): 513639534 Comment: - Lovenox (11) Full code status Code(s): Z78.9 - OTHER SPECIFIED HEALTH STATUS SNOMED Code(s): 908504103 Comment: Status and Disposition: Inpatient. Dispo PETR when medically stable. Pending referrals.
[2019-03-20] MEDS ORDERED: KCL 10 MEQ/50 ML IVPREMIX* 10 MEQ/50 ML BAG IV SCH (17:00)
[2019-03-20] MEDS: Enoxaparin(*) 40 MG/0.4 ML SYR SUBCUT SCH (21:50)
[2019-03-21] MEDS: KCL 10 MEQ/50 ML IVPREMIX* 10 MEQ/50 ML BAG IV SCH (01:30)
[2019-03-21] MEDS: cefTRIAXone(*) 1 GM in NS 0.9% 50 ML* 50 ML IVPB SCH (05:29)
[2019-03-21 06:10] LABS: BUN/Creatinine Ratio 16.4 (8-20); Calcium 8.8 mg/dL (8.6-10.3); EGFR African American 104.4 (>60); EGFR Non-African American 86.3 (>60); Potassium 4.1 mmol/L (3.5-5.0)
[2019-03-21] MEDS: Atorvastatin* 10 MG TAB PO SCH (08:05)
[2019-03-21] MEDS: Acetaminophen TAB* 325 MG PO PRN ×2 (08:05→15:01)
[2019-03-21] MEDS: Divalproex DR TAB(*) 500 MG PO SCH ×2 (08:06→20:03)
[2019-03-21] MEDS ORDERED: Magnesium Sulf 4 GM/100 ML IV* 4,000 MG/100 ML BAG IVPB ONE (17:00)
[2019-03-21] MEDS: Ibuprofen TAB* 400 MG PO PRN (17:26)
--- NOTE | 2019-03-21 17:26 | PN ---
Subjective Date of Service: 03/21/19 Interval History: Patient seen and examined. Feeling better, no complaints today. States she is willing to go to [facility] after talking with her son last night. States her headache from yesterday improved, however, primary RN states that headache has returned. No further complaints or overnight events noted. Family History: Unchanged from Admission Social History: Unchanged from Admission Past Medical History: Unchanged from Admission Objective Active Medications: Acetaminophen (Tylenol Tab*) 650 mg PO Q4H PRN PRN Reason: MILD PAIN or TEMP > 100.4 Last Admin: 03/21/19 15:01 Dose: 650 mg Atorvastatin Calcium (Lipitor*) 10 mg PO DAILY [facility] Last Admin: 03/21/19 08:05 Dose: 10 mg Divalproex Sodium (Depakote Dr Tab(*)) 500 mg PO BID [facility] Last Admin: 03/21/19 08:06 Dose: 500 mg Enoxaparin Sodium (Lovenox(*)) 40 mg SUBCUT Q24H [facility] Last Admin: 03/20/19 21:50 Dose: 40 mg Ceftriaxone Sodium 1 gm/ (Sodium Chloride) 50 mls @ 100 mls/hr IVPB Q24H [facility] Last Admin: 03/21/19 05:29 Dose: 100 mls/hr Ibuprofen (Motrin Tab*) 400 mg PO Q6H PRN PRN Reason: HEADACHE Vital Signs - 8 hr 03/21/19 11:28 Temperature 98.2 F Pulse Rate 80 Respiratory 20 Rate Blood Pressure 143/78 (mmHg) O2 Sat by Pulse 98 Oximetry Oxygen Devices in Use Now: Nasal Cannula Appearance: alert, NAD Eyes: PERRLA Ears/Nose/Mouth/Throat: Mucous Membranes Moist Neck: NL Appearance and Movements; NL JVP, Trachea Midline Respiratory: Symmetrical Chest Expansion and Respiratory Effort, Clear to Auscultation Cardiovascular: NL Sounds; No Murmurs; No JVD, RRR Abdominal: NL Sounds; No Tenderness; No Distention Extremities: No Edema Skin: No Rash or Ulcers, No Nodules or Sclerosis Neurological: Alert and Oriented x 3 Nutrition: Taking PO's Result Diagrams: 03/19/19 06:04 03/21/19 05:16 Additional Lab and Data: Lab Results 03/17/19 03/17/19 03/17/19 Range/Units 22:49 22:49 22:49 WBC 19.0 H (3.5-10.8) 10^3/uL RBC 4.11 (3.70-4.87) 10^6 /uL Hgb 12.3 (12.0-16.0) g/dL Hct 37 (35-47) % MCV 89 (80-97) fL MCH 30 (27-31) pg MCHC 34 (31-36) g/dL RDW 15 (10-15) % Plt Count 325 (150-450) 10^3/uL MPV 8.8 (7.4-10.4) fL Neut % (Auto) 89.2 % Lymph % (Auto) 2.8 % [place] % (Auto) 7.9 % Eos % (Auto) 0.0 % Baso % (Auto) 0.1 % Absolute Neuts (auto) 17.0 H (1.5-7.7) 10^3/ul Absolute Lymphs (auto) 0.5 L (1.0-4.8) 10^3/ul Absolute Monos (auto) 1.5 H (0-0.8) 10^3/ul Absolute Eos (auto) 0.0 (0-0.6) 10^3/ul Absolute Basos (auto) 0.0 (0-0.2) 10^3/ul Absolute Nucleated RBC 0.0 10^3/ul Nucleated RBC % 0.0 Sodium 133 L (135-145) mmol/L Potassium 2.7 L* (3.5-5.0) mmol/L Chloride 103 (101-111) mmol/L Carbon Dioxide 21 L (22-32) mmol/L Anion Gap 9 (2-11) mmol/L BUN 21 (6-24) mg/dL Creatinine 0.97 H (0.51-0.95) mg/dL Est GFR ( Amer) 68.1 (>60) Est GFR (Non-Af Amer) 56.3 (>60) BUN/Creatinine Ratio 21.6 H (8-20) Glucose 127 H (70-100) mg/dL Lactic Acid 0.8 (0.5-2.0) mmol/L Calcium 9.0 (8.6-10.3) mg/dL Total Bilirubin 0.40 (0.2-1.0) mg/dL AST 10 L (13-39) U/L ALT 9 (7-52) U/L Alkaline Phosphatase 64 (34-104) U/L Troponin I 0.05 H* (<0.04) ng/mL B-Natriuretic Peptide (<=100) pg/mL Total Protein 7.2 (6.4-8.9) g/dL Albumin 3.7 (3.2-5.2) g/dL Globulin 3.5 (2-4) g/dL Albumin/Globulin Ratio 1.1 (1-3) 03/17/19 Range/Units 22:49 WBC (3.5-10.8) 10^3/uL RBC (3.70-4.87) 10^6 /uL Hgb (12.0-16.0) g/dL Hct (35-47) % MCV (80-97) fL MCH (27-31) pg MCHC (31-36) g/dL RDW (10-15) % Plt Count (150-450) 10^3/uL MPV (7.4-10.4) fL Neut % (Auto) % Lymph % (Auto) % [place] % (Auto) % Eos % (Auto) % Baso % (Auto) % Absolute Neuts (auto) (1.5-7.7) 10^3/ul Absolute Lymphs (auto) (1.0-4.8) 10^3/ul Absolute Monos (auto) (0-0.8) 10^3/ul Absolute Eos (auto) (0-0.6) 10^3/ul Absolute Basos (auto) (0-0.2) 10^3/ul Absolute Nucleated RBC 10^3/ul Nucleated RBC % Sodium (135-145) mmol/L Potassium (3.5-5.0) mmol/L Chloride (101-111) mmol/L Carbon Dioxide (22-32) mmol/L Anion Gap (2-11) mmol/L BUN (6-24) mg/dL Creatinine (0.51-0.95) mg/dL Est GFR ( Amer) (>60) Est GFR (Non-Af Amer) (>60) BUN/Creatinine Ratio (8-20) Glucose (70-100) mg/dL Lactic Acid (0.5-2.0) mmol/L Calcium (8.6-10.3) mg/dL Total Bilirubin (0.2-1.0) mg/dL AST (13-39) U/L ALT (7-52) U/L Alkaline Phosphatase (34-104) U/L Troponin I (<0.04) ng/mL B-Natriuretic Peptide 108 H (<=100) pg/mL Total Protein (6.4-8.9) g/dL Albumin (3.2-5.2) g/dL Globulin (2-4) g/dL Albumin/Globulin Ratio (1-3) Microbiology and Other Data: Microbiology 03/17/19 22:49 Aerobic Blood Culture - Preliminary Blood Venous Escherichia Coli Anaerobic Blood Culture - Preliminary Escherichia Coli 03/18/19 04:33 Urine Culture - Preliminary Urine Escherichia Coli 03/17/19 22:49 Aerobic Blood Culture - Preliminary Blood Venous Escherichia Coli Anaerobic Blood Culture - Preliminary Escherichia Coli Diagnostic Imaging: Patient Name: WALLACE STEVENSON Medical Record#: [id number] Ordering Physician: Ayah Hall NP Acct.#: [id number] : 1945 Age: 73 Sex: F Location: [address] [place] [address]/TELEMETRY Exam Date: 03/18/191753 ADM Status: ADM IN Order Information: US RENAL AND BLADDER Accession Number: [id number] CPT: 21173 PROCEDURE INFORMATION: Exam: US Retroperitoneal Complete. Exam date and time: 03/18/2019 9:30 PM Clinical history: 73 years old, female; Other: UTI TECHNIQUE: Imaging protocol: Real-time ultrasound of the retroperitoneum with image documentation. Complete exam. COMPARISON: OT KUB ABDOMEN/KUB 1 VW 01/14/2018 12:56 PM FINDINGS: Gallbladder: No right-sided hydronephrosis or calculi. Right kidney: No stones. No hydronephrosis. Left kidney: There is mild to moderate left hydronephrosis with no visible left-sided calculi. There is a small mildly complicated septated cyst in the interpolar left kidney measuring a maximum of 1.3 cm and there is an additional mildly complicated septated cyst in the superior pole left kidney measuring a maximum of 1.8 cm. Bladder: Prevoid urinary bladder volume 96 cc and post void residual volume 33 cc. A right ureteral jet was visualized with a left ureteral jet was not visible during the exam. IMPRESSION: There is mild to moderate left hydronephrosis with no visible left-sided calculi. To contact [facility] with a general question: Operations Center - [phone] For direct physician to physician contact: Physician Hotline - [phone] [facility] ([facility] Facility ID #[id number]) Assess/Plan/Problems-Billing Assessment: Ms. Stevenson is a 73 yo F with PMH of seizures, HLD, and depression; who presented to the ED with c/o headache and was found to be febrile, meeting sepsis criteria, presumed to be urinary source. - Patient Problems (1) Bacteremia Code(s): R78.81 - BACTEREMIA SNOMED Code(s): 3139854 Comment: - 4/4 bottles positive for gram negative bacilli/eColi - Urinary source, E. coli - Continue ceftriaxone day 3, based on susceptibilities (2) Elevated troponin Code(s): R74.8 - ABNORMAL LEVELS OF OTHER SERUM ENZYMES SNOMED Code(s): 805145601 Comment: - Suspect demand ischemia, no anginal equivalents (3) Sepsis Comment: - Met criteria on admission with leukocytosis, tachycardia, tachypnea - Source is urine, eColi on ceftriaxone - Plan as above (4) UTI (urinary tract infection) Comment: - Micro with eColi, continue ceftriaxone (5) Hypokalemia Code(s): E87.6 - HYPOKALEMIA SNOMED Code(s): 95662151 Comment: - Persistent with hypomagnesemia, repleted - K 4.1 today and Mg 2.0 (6) Headache Code(s): R51 - HEADACHE SNOMED Code(s): 43486453 Comment: - Ususally takes excedrin, not on formulary here - trial ibuprofen and coffee for caffeine, as tylenol not offering relief (7) COPD (chronic obstructive pulmonary disease) Code(s): J44.9 - CHRONIC OBSTRUCTIVE PULMONARY DISEASE, UNSPECIFIED SNOMED Code(s): 43856898 Comment: - No signs of acute exacerbation, remains on O2 with adequate saturations (8) Dementia Code(s): F03.90 - UNSPECIFIED DEMENTIA WITHOUT BEHAVIORAL DISTURBANCE SNOMED Code(s): 89740164 Comment: - Supportive care, son in agreement with PETR (patient initially refusing) (9) HLD (hyperlipidemia) Code(s): E78.5 - HYPERLIPIDEMIA, UNSPECIFIED SNOMED Code(s): 96298171 Comment: - Continue atorvastatin (10) Seizure disorder Code(s): G40.909 - EPILEPSY, UNSP, NOT INTRACTABLE, WITHOUT STATUS EPILEPTICUS SNOMED Code(s): 869612174 Comment: - Continue Depakote (11) DVT prophylaxis Code(s): FSW5890 - SNOMED Code(s): 090752227 Comment: - Lovenox (12) Full code status Code(s): Z78.9 - OTHER SPECIFIED HEALTH STATUS SNOMED Code(s): 544301658 Comment: Status and Disposition: Inpatient. Dispo PETR when medically stable. Pending referrals for PETR.
[2019-03-21] MEDS: Enoxaparin(*) 40 MG/0.4 ML SYR SUBCUT SCH (20:03)
[2019-03-22] MEDS: Acetaminophen TAB* 325 MG PO PRN (03:33)
[2019-03-22] MEDS: cefTRIAXone(*) 1 GM in NS 0.9% 50 ML* 50 ML IVPB SCH (04:49)
[2019-03-22] MEDS: Divalproex DR TAB(*) 500 MG PO SCH ×2 (08:45→20:12)
[2019-03-22] MEDS: Atorvastatin* 10 MG TAB PO SCH (08:46)
[2019-03-22 11:32] LABS: BUN/Creatinine Ratio 19.1 (8-20); Calcium 9.3 mg/dL (8.6-10.3); EGFR African American 102.6 (>60); EGFR Non-African American 84.8 (>60); Potassium 3.9 mmol/L (3.5-5.0)
--- NOTE | 2019-03-22 15:35 | PN ---
Subjective Date of Service: 03/22/19 Interval History: Patient answers questions appropriately. Tells me she feels fine and says "well , I'm here." Denies fever/chills, chest pain, abd pain, difficulty breathing. Tells me the cough she has is chronic. Family History: Unchanged from Admission Social History: Unchanged from Admission Past Medical History: Unchanged from Admission Objective Active Medications: Acetaminophen (Tylenol Tab*) 650 mg PO Q4H PRN PRN Reason: MILD PAIN or TEMP > 100.4 Last Admin: 03/22/19 03:33 Dose: 650 mg Atorvastatin Calcium (Lipitor*) 10 mg PO DAILY [facility] Last Admin: 03/22/19 08:46 Dose: 10 mg Divalproex Sodium (Depakote Dr Tab(*)) 500 mg PO BID [facility] Last Admin: 03/22/19 08:45 Dose: 500 mg Enoxaparin Sodium (Lovenox(*)) 40 mg SUBCUT Q24H [facility] Last Admin: 03/21/19 20:03 Dose: 40 mg Ceftriaxone Sodium 1 gm/ (Sodium Chloride) 50 mls @ 100 mls/hr IVPB Q24H [facility] Last Admin: 03/22/19 04:49 Dose: 100 mls/hr Ibuprofen (Motrin Tab*) 400 mg PO Q6H PRN PRN Reason: HEADACHE Last Admin: 03/21/19 17:26 Dose: 400 mg Vital Signs - 8 hr 03/22/19 03/22/19 03/22/19 07:42 08:00 11:17 Temperature 97.7 F 98 F Pulse Rate 73 83 Respiratory 20 20 20 Rate Blood Pressure 130/70 147/83 (mmHg) O2 Sat by Pulse 98 96 Oximetry Oxygen Devices in Use Now: None Appearance: Thin, elderly white female laying upright in bed, appearing in NAD Eyes: No Scleral Icterus, PERRLA Ears/Nose/Mouth/Throat: Mucous Membranes Moist Neck: NL Appearance and Movements; NL JVP Respiratory: Symmetrical Chest Expansion and Respiratory Effort, Clear to Auscultation Cardiovascular: NL Sounds; No Murmurs; No JVD, RRR Abdominal: - - abd soft, nontender, nondistended, no suprapubic tenderness Extremities: No Edema, No Clubbing, Cyanosis, - - no calf tenderness Skin: No Rash or Ulcers Neurological: NL Muscle Strength and Tone, - - alert and oriented to self and location Result Diagrams: 03/19/19 06:04 03/22/19 10:59 Additional Lab and Data: Lab Results 03/17/19 03/17/19 03/17/19 Range/Units 22:49 22:49 22:49 WBC 19.0 H (3.5-10.8) 10^3/uL RBC 4.11 (3.70-4.87) 10^6 /uL Hgb 12.3 (12.0-16.0) g/dL Hct 37 (35-47) % MCV 89 (80-97) fL MCH 30 (27-31) pg MCHC 34 (31-36) g/dL RDW 15 (10-15) % Plt Count 325 (150-450) 10^3/uL MPV 8.8 (7.4-10.4) fL Neut % (Auto) 89.2 % Lymph % (Auto) 2.8 % [place] % (Auto) 7.9 % Eos % (Auto) 0.0 % Baso % (Auto) 0.1 % Absolute Neuts (auto) 17.0 H (1.5-7.7) 10^3/ul Absolute Lymphs (auto) 0.5 L (1.0-4.8) 10^3/ul Absolute Monos (auto) 1.5 H (0-0.8) 10^3/ul Absolute Eos (auto) 0.0 (0-0.6) 10^3/ul Absolute Basos (auto) 0.0 (0-0.2) 10^3/ul Absolute Nucleated RBC 0.0 10^3/ul Nucleated RBC % 0.0 Sodium 133 L (135-145) mmol/L Potassium 2.7 L* (3.5-5.0) mmol/L Chloride 103 (101-111) mmol/L Carbon Dioxide 21 L (22-32) mmol/L Anion Gap 9 (2-11) mmol/L BUN 21 (6-24) mg/dL Creatinine 0.97 H (0.51-0.95) mg/dL Est GFR ( Amer) 68.1 (>60) Est GFR (Non-Af Amer) 56.3 (>60) BUN/Creatinine Ratio 21.6 H (8-20) Glucose 127 H (70-100) mg/dL Lactic Acid 0.8 (0.5-2.0) mmol/L Calcium 9.0 (8.6-10.3) mg/dL Total Bilirubin 0.40 (0.2-1.0) mg/dL AST 10 L (13-39) U/L ALT 9 (7-52) U/L Alkaline Phosphatase 64 (34-104) U/L Troponin I 0.05 H* (<0.04) ng/mL B-Natriuretic Peptide (<=100) pg/mL Total Protein 7.2 (6.4-8.9) g/dL Albumin 3.7 (3.2-5.2) g/dL Globulin 3.5 (2-4) g/dL Albumin/Globulin Ratio 1.1 (1-3) 03/17/19 Range/Units 22:49 WBC (3.5-10.8) 10^3/uL RBC (3.70-4.87) 10^6 /uL Hgb (12.0-16.0) g/dL Hct (35-47) % MCV (80-97) fL MCH (27-31) pg MCHC (31-36) g/dL RDW (10-15) % Plt Count (150-450) 10^3/uL MPV (7.4-10.4) fL Neut % (Auto) % Lymph % (Auto) % [place] % (Auto) % Eos % (Auto) % Baso % (Auto) % Absolute Neuts (auto) (1.5-7.7) 10^3/ul Absolute Lymphs (auto) (1.0-4.8) 10^3/ul Absolute Monos (auto) (0-0.8) 10^3/ul Absolute Eos (auto) (0-0.6) 10^3/ul Absolute Basos (auto) (0-0.2) 10^3/ul Absolute Nucleated RBC 10^3/ul Nucleated RBC % Sodium (135-145) mmol/L Potassium (3.5-5.0) mmol/L Chloride (101-111) mmol/L Carbon Dioxide (22-32) mmol/L Anion Gap (2-11) mmol/L BUN (6-24) mg/dL Creatinine (0.51-0.95) mg/dL Est GFR ( Amer) (>60) Est GFR (Non-Af Amer) (>60) BUN/Creatinine Ratio (8-20) Glucose (70-100) mg/dL Lactic Acid (0.5-2.0) mmol/L Calcium (8.6-10.3) mg/dL Total Bilirubin (0.2-1.0) mg/dL AST (13-39) U/L ALT (7-52) U/L Alkaline Phosphatase (34-104) U/L Troponin I (<0.04) ng/mL B-Natriuretic Peptide 108 H (<=100) pg/mL Total Protein (6.4-8.9) g/dL Albumin (3.2-5.2) g/dL Globulin (2-4) g/dL Albumin/Globulin Ratio (1-3) Microbiology and Other Data: Microbiology 03/17/19 22:49 Aerobic Blood Culture - Preliminary Blood Venous Escherichia Coli Anaerobic Blood Culture - Preliminary Escherichia Coli 03/18/19 04:33 Urine Culture - Preliminary Urine Escherichia Coli 03/17/19 22:49 Aerobic Blood Culture - Preliminary Blood Venous Escherichia Coli Anaerobic Blood Culture - Preliminary Escherichia Coli Diagnostic Imaging: Patient Name: WALLACE STEVENSON Medical Record#: [id number] Ordering Physician: Ayah Hall GRAVEL ROOFER Acct.#: [id number] : 1945 Age: 73 Sex: F Location: [address] [place] [address] MEDICAL/TELEMETRY Exam Date: 03/18/191753 ADM Status: ADM IN Order Information: US RENAL AND BLADDER Accession Number: [id number] CPT: 66914 PROCEDURE INFORMATION: Exam: US Retroperitoneal Complete. Exam date and time: 03/18/2019 9:30 PM Clinical history: 73 years old, female; Other: UTI TECHNIQUE: Imaging protocol: Real-time ultrasound of the retroperitoneum with image documentation. Complete exam. COMPARISON: OT KUB ABDOMEN/KUB 1 VW 01/14/2018 12:56 PM FINDINGS: Gallbladder: No right-sided hydronephrosis or calculi. Right kidney: No stones. No hydronephrosis. Left kidney: There is mild to moderate left hydronephrosis with no visible left-sided calculi. There is a small mildly complicated septated cyst in the interpolar left kidney measuring a maximum of 1.3 cm and there is an additional mildly complicated septated cyst in the superior pole left kidney measuring a maximum of 1.8 cm. Bladder: Prevoid urinary bladder volume 96 cc and post void residual volume 33 cc. A right ureteral jet was visualized with a left ureteral jet was not visible during the exam. IMPRESSION: There is mild to moderate left hydronephrosis with no visible left-sided calculi. To contact [facility] with a general question: [facility] - [phone] For direct physician to physician contact: Physician Hotline - [phone] [facility] ([facility] Facility ID #[id number]) Assess/Plan/Problems-Billing Assessment: Ms. Stevenson is a 73 yo F with PMH of seizures, HLD, and depression; who presented to the ED with c/o headache and was found to be febrile 2/2 urosepsis. - Patient Problems (1) Bacteremia Current Visit: Yes Status: Acute Code(s): R78.81 - BACTEREMIA SNOMED Code( s): 7454922 Comment: - 4/4 blood culture bottles positive for hubbard-sensitive E. coli - Urinary source - Continue ceftriaxone - Patient remains afebrile without leukocytosis (2) UTI (urinary tract infection) Current Visit: No Status: Acute Comment: - Urine culture positive for E. coli - Continue ceftriaxone - Patient without leukocytosis and afebrile. No flank pain or dysuria. (3) Sepsis Current Visit: No Status: Acute Comment: - Met criteria on admission with leukocytosis, tachycardia, tachypnea - Secondary to E. coli UTI - Plan as above - Signs of sepsis now resolved (4) Headache Current Visit: Yes Status: Acute Code(s): R51 - HEADACHE SNOMED Code(s): 99230901 Comment: - Ususally takes excedrin, not on formulary here - No complaints today - continue ibuprofen and coffee for caffeine, as tylenol not offering relief (5) Elevated troponin Current Visit: Yes Status: Acute Code(s): R74.8 - ABNORMAL LEVELS OF OTHER SERUM ENZYMES SNOMED Code(s): 806347120 Comment: - Elevated to 0.05 --> 0.04 - No anginal equivalents, EKG without changes - Suspect demand ischemia in setting of sepsis (6) Hypokalemia Current Visit: Yes Status: Acute Code(s): E87.6 - HYPOKALEMIA SNOMED Code( s): 13742747 Comment: - Resolved (7) COPD (chronic obstructive pulmonary disease) Current Visit: No Status: Chronic Code(s): J44.9 - CHRONIC OBSTRUCTIVE PULMONARY DISEASE, UNSPECIFIED SNOMED Code(s): 90589787 Comment: - No signs of acute exacerbation. Good saturations on room air today - Chronic cough (8) Dementia Current Visit: No Status: Chronic Code(s): F03.90 - UNSPECIFIED DEMENTIA WITHOUT BEHAVIORAL DISTURBANCE SNOMED Code(s): 22425582 Comment: - Supportive care, son in agreement with PETR (patient initially refusing) (9) HLD (hyperlipidemia) Current Visit: No Status: Chronic Code(s): E78.5 - HYPERLIPIDEMIA, UNSPECIFIED SNOMED Code(s): 15148048 Comment: - Continue atorvastatin (10) Seizure disorder Current Visit: No Status: Chronic Code(s): G40.909 - EPILEPSY, UNSP, NOT INTRACTABLE, WITHOUT STATUS EPILEPTICUS SNOMED Code(s): 292535966 Comment: - Continue Depakote (11) DVT prophylaxis Current Visit: No Status: Acute Code(s): GPZ9782 - SNOMED Code(s): 240787079 Comment: - Lovenox (12) Full code status Current Visit: No Status: Acute Code(s): Z78.9 - OTHER SPECIFIED HEALTH STATUS SNOMED Code(s): 462508309 Comment: Status and Disposition: Inpatient. Pending PETR placement.
[2019-03-22] MEDS ORDERED: LORazepam TAB(*) 0.5 MG PO PRN (17:35)
[2019-03-22] MEDS: Enoxaparin(*) 40 MG/0.4 ML SYR SUBCUT SCH (20:12)
[2019-03-23] MEDS: Ibuprofen TAB* 400 MG PO PRN ×2 (04:31→19:38)
[2019-03-23] MEDS: cefTRIAXone(*) 1 GM in NS 0.9% 50 ML* 50 ML IVPB SCH ×2 (04:33→04:45)
[2019-03-23 08:04] LABS: BUN/Creatinine Ratio 15.1 (8-20); EGFR African American 94.6 (>60); EGFR Non-African American 78.1 (>60); Magnesium 1.6 mg/dL (1.9-2.7); Potassium 3.5 mmol/L (3.5-5.0)
[2019-03-23] MEDS ORDERED: Magnesium Sulfate 2 GM IV* 2 GM/50 ML BAG IVPB ONE (08:07)
[2019-03-23] MEDS: Atorvastatin* 10 MG TAB PO SCH (10:08)
[2019-03-23] MEDS: Divalproex DR TAB(*) 500 MG PO SCH ×2 (10:08→19:38)
--- NOTE | 2019-03-23 13:55 | PN ---
Subjective Date of Service: 03/23/19 Interval History: Patient is feeling well today. Patient still feels somewhat stronger. Patient denies dysuria, F/C, CP, SOB. Patient is able to walk with a 1 assist with a GB. Family History: Unchanged from Admission Social History: Unchanged from Admission Past Medical History: Unchanged from Admission Objective Active Medications: Acetaminophen (Tylenol Tab*) 650 mg PO Q4H PRN PRN Reason: MILD PAIN or TEMP > 100.4 Last Admin: 03/22/19 03:33 Dose: 650 mg Atorvastatin Calcium (Lipitor*) 10 mg PO DAILY [facility] Last Admin: 03/23/19 10:08 Dose: 10 mg Divalproex Sodium (Depakote Dr Tab(*)) 500 mg PO BID [facility] Last Admin: 03/23/19 10:08 Dose: 500 mg Enoxaparin Sodium (Lovenox(*)) 40 mg SUBCUT Q24H [facility] Last Admin: 03/22/19 20:12 Dose: 40 mg Ceftriaxone Sodium 1 gm/ (Sodium Chloride) 50 mls @ 100 mls/hr IVPB Q24H [facility] Last Admin: 03/23/19 04:45 Dose: 100 mls/hr Ibuprofen (Motrin Tab*) 400 mg PO Q6H PRN PRN Reason: HEADACHE Last Admin: 03/23/19 04:31 Dose: 400 mg Lorazepam (Ativan Tab(*)) 0.5 mg PO Q6H PRN PRN Reason: AGITATION Vital Signs - 8 hr 03/23/19 03/23/19 03/23/19 07:46 08:00 11:20 Temperature 98.2 F 98.6 F Pulse Rate 82 79 Respiratory 20 16 20 Rate Blood Pressure 160/76 148/75 (mmHg) O2 Sat by Pulse 94 95 Oximetry Oxygen Devices in Use Now: None Appearance: Patient is a 73yo female who appears stated age and is sitting in the bed in [facility]. Eyes: No Scleral Icterus, PERRLA Ears/Nose/Mouth/Throat: NL Teeth, Lips, Gums, Clear Oropharnyx, Mucous Membranes Moist Neck: NL Appearance and Movements; NL JVP, Trachea Midline Respiratory: Symmetrical Chest Expansion and Respiratory Effort, Clear to Auscultation Cardiovascular: NL Sounds; No Murmurs; No JVD, RRR, No Edema Abdominal: NL Sounds; No Tenderness; No Distention, No Hepatosplenomegaly Lymphatic: No Cervical Adenopathy Extremities: No Edema, No Clubbing, Cyanosis Skin: No Rash or Ulcers, No Nodules or Sclerosis Neurological: Alert and Oriented x 3, NL Sensation, NL Muscle Strength and Tone , - - CN II-XII intact. Result Diagrams: 03/19/19 06:04 03/23/19 07:26 Additional Lab and Data: Lab Results Microbiology and Other Data: Microbiology 03/17/19 22:49 Aerobic Blood Culture - Preliminary Blood Venous Escherichia Coli Anaerobic Blood Culture - Preliminary Escherichia Coli 03/18/19 04:33 Urine Culture - Preliminary Urine Escherichia Coli 03/17/19 22:49 Aerobic Blood Culture - Preliminary Blood Venous Escherichia Coli Anaerobic Blood Culture - Preliminary Escherichia Coli Diagnostic Imaging: Patient Name: WALLACE STEVENSON Medical Record#: [id number] Ordering Physician: Ayah Hall NP Acct.#: [id number] : 1945 Age: 73 Sex: F Location: [address] [place] [address] MEDICAL/TELEMETRY Exam Date: 03/18/191753 ADM Status: ADM IN Order Information: US RENAL AND BLADDER Accession Number: [id number] CPT: 99026 PROCEDURE INFORMATION: Exam: US Retroperitoneal Complete. Exam date and time: 03/18/2019 9:30 PM Clinical history: 73 years old, female; Other: UTI TECHNIQUE: Imaging protocol: Real-time ultrasound of the retroperitoneum with image documentation. Complete exam. COMPARISON: OT KUB ABDOMEN/KUB 1 VW 01/14/2018 12:56 PM FINDINGS: Gallbladder: No right-sided hydronephrosis or calculi. Right kidney: No stones. No hydronephrosis. Left kidney: There is mild to moderate left hydronephrosis with no visible left-sided calculi. There is a small mildly complicated septated cyst in the interpolar left kidney measuring a maximum of 1.3 cm and there is an additional mildly complicated septated cyst in the superior pole left kidney measuring a maximum of 1.8 cm. Bladder: Prevoid urinary bladder volume 96 cc and post void residual volume 33 cc. A right ureteral jet was visualized with a left ureteral jet was not visible during the exam. IMPRESSION: There is mild to moderate left hydronephrosis with no visible left-sided calculi. To contact [facility] with a general question: Operations Center - [phone] For direct physician to physician contact: Physician Hotline - [phone] [facility] ([facility] Facility ID #[id number]) Assess/Plan/Problems-Billing Assessment: Ms. Stevenson is a 73 yo F with PMH of seizures, HLD, and depression; who presented to the ED with c/o headache and was found to be febrile 2/2 urosepsis. Weakness improving with treatment of infection. - Patient Problems (1) Bacteremia Current Visit: Yes Status: Acute Code(s): R78.81 - BACTEREMIA SNOMED Code( s): 6742057 Comment: - / blood culture bottles positive for hubbard-sensitive E. coli - Urinary source - Continue ceftriaxone day 5/ total days antibiotics - Patient remains afebrile without leukocytosis (2) Sepsis Current Visit: No Status: Acute Comment: - Met criteria on admission with leukocytosis, tachycardia, tachypnea - Secondary to E. coli UTI - Plan as above - Signs of sepsis now resolved (3) UTI (urinary tract infection) Current Visit: No Status: Acute Comment: - Urine culture positive for E. coli - Continue ceftriaxone - Patient without leukocytosis and afebrile. No flank pain or dysuria. (4) COPD (chronic obstructive pulmonary disease) Current Visit: No Status: Chronic Code(s): J44.9 - CHRONIC OBSTRUCTIVE PULMONARY DISEASE, UNSPECIFIED SNOMED Code(s): 20185438 Comment: - No signs of acute exacerbation. Good saturations on room air today - Chronic cough (5) Dementia Current Visit: No Status: Chronic Code(s): F03.90 - UNSPECIFIED DEMENTIA WITHOUT BEHAVIORAL DISTURBANCE SNOMED Code(s): 88502263 Comment: - Supportive care, son in agreement with PETR (patient initially refusing) - With improvement, may be able to D/C home with VNS, PT re-eval tomorrow. (6) Elevated troponin Current Visit: Yes Status: Acute Code(s): R74.8 - ABNORMAL LEVELS OF OTHER SERUM ENZYMES SNOMED Code(s): 675714344 Comment: - Elevated to 0.05 --> 0.04 - No anginal equivalents, EKG without changes - Suspect demand ischemia in setting of sepsis (7) Headache Current Visit: Yes Status: Acute Code(s): R51 - HEADACHE SNOMED Code(s): 33962407 Comment: - Ususally takes excedrin, not on formulary here - No complaints today - continue ibuprofen and coffee for caffeine, as tylenol not offering relief (8) Hypokalemia Current Visit: Yes Status: Acute Code(s): E87.6 - HYPOKALEMIA SNOMED Code( s): 61690377 Comment: - Resolved - Continue to supplement Magnesium (9) HLD (hyperlipidemia) Current Visit: No Status: Chronic Code(s): E78.5 - HYPERLIPIDEMIA, UNSPECIFIED SNOMED Code(s): 79857725 Comment: - Continue atorvastatin (10) Seizure disorder Current Visit: No Status: Chronic Code(s): G40.909 - EPILEPSY, UNSP, NOT INTRACTABLE, WITHOUT STATUS EPILEPTICUS SNOMED Code(s): 779492761 Comment: - Continue Depakote (11) DVT prophylaxis Current Visit: No Status: Acute Code(s): WUK4911 - SNOMED Code(s): 120784302 Comment: - Lovenox (12) Full code status Current Visit: No Status: Acute Code(s): Z78.9 - OTHER SPECIFIED HEALTH STATUS SNOMED Code(s): 959448919 Comment: Status and Disposition: Inpatient. Pending PETR placement vs D/C if improving enough to go home. Patient lives alone.
[2019-03-23] MEDS: Enoxaparin(*) 40 MG/0.4 ML SYR SUBCUT SCH (19:38)
[2019-03-24] MEDS: cefTRIAXone(*) 1 GM in NS 0.9% 50 ML* 50 ML IVPB SCH (05:10)
[2019-03-24] MEDS: Atorvastatin* 10 MG TAB PO SCH (08:37)
[2019-03-24] MEDS: Divalproex DR TAB(*) 500 MG PO SCH (08:37)
--- NOTE | 2019-03-24 13:55 | DS ---
CC: Dr. Schulz; Dr. Johnny Choi; Kaylynn * DISCHARGE SUMMARY: DATE OF ADMISSION: 03/18/19 PRESUMPTIVE DATE OF DISCHARGE: 03/24/19 PRIMARY CARE PROVIDER: Dr. Schulz. OUTPATIENT NEUROLOGIST: Dr. Johnny Choi. MY ATTENDING WHILE IN THE HOSPITAL: Dr. Jeffery * (DICTATED BY ANNETTE PRIETO) PRIMARY DISCHARGE DIAGNOSES: 1. Urinary tract infection due to pansensitive Escherichia coli. 2. Escherichia coli bacteremia. 3. Elevated troponin likely related to demand ischemia. 4. Sepsis, improved on antibiotics. SECONDARY DISCHARGE DIAGNOSES: 1. History of seizure disorder. 2. Cognitive impairment. 3. Hyperlipidemia. 4. Depression. 5. Osteoporosis. STUDIES DONE WHILE IN THE HOSPITAL: Chest x-ray from 03/17/19 read as hyperinflation consistent with COPD, no active cardiopulmonary disease. Electrocardiogram from 03/18/19 read as sinus tachycardia, QTc of 517, no ST segment elevation or depression. Poor quality study. T-wave inversions in V4, V5. Repeat EKG from 03/18/19 shows resolution of T-wave inversions, no other significant changes except for decrease in rate. Repeat EKG from 03/18/19 shows no significant changes from previous exam. Abdomen and bladder ultrasound from 03/18/19 read as there is mild to moderate left hydronephrosis without left-sided calculi. MEDICATIONS AT DISCHARGE: 1. Ibuprofen 800 mg p.o. b.i.d. as needed. 2. Depakote DR 500 mg p.o. b.i.d. 3. Lipitor 10 mg p.o. daily. 4. Tylenol 650 mg q.4 hours as needed. 5. Cefuroxime 500 mg p.o. b.i.d. x8 doses. New medications at discharge: 1. Tylenol. 2. Cefuroxime. Medications discontinued at discharge: None. HOSPITAL COURSE: This is a brief summary of the patient's presentation. For more details, please see the history and physical from Dr. Rona Brennan on . In brief, the patient is a 73-year-old female with past medical history significant for the above, who presented to the emergency department after she had nonspecific symptoms including headache, shuffling gait, and shallow breathing. The patient had decrease in her appetite. The patient came into the emergency room and was found to have a fever of 103.4. The patient was started on ceftriaxone due to abnormal urinalysis. As above, the patient's urine and all of the patient's blood cultures grew pansensitive E. coli. The patient improved greatly; however, remained very weak. The patient had an elevated troponin likely related to demand ischemia and this was trended down. The patient had no other significant findings. The patient was seen by Physical Therapy who recommended subcu rehab. The patient's strength improved, but she was still requiring significant amount of assistance on her day of discharge. The patient was reluctant to go to subacute rehab, but her and her son eventually agreed that this would be best for her. The patient was offered a bed at [facility] on 03/24/19 which was accepted by her son and the patient was stable enough to discharge on 03/24/19. PHYSICAL EXAM ON THE DAY OF DISCHARGE: General: The patient is a 73-year-old female who appears stated age and sitting comfortably in the bed, in no acute distress. Vital Signs: At the time of evaluation, temperature 97.8, pulse rate 88, respiratory rate 16, oxygen saturation 97% on room air, blood pressure 146/72. HEENT: Head normocephalic, atraumatic. Sclerae anicteric. No conjunctival injection. Nasal mucosa moist. Oral mucosa moist. No pharyngeal erythema, discharge, or exudate. Neck: Supple, nontender. No lymphadenopathy. No carotid bruits auscultated. No JVD. Cardiac: Regular rate and rhythm. No clicks, murmurs, gallops, or rubs. Pulses are 2+ in the bilateral dorsalis pedis, posterior tibialis, and radial areas. Respiratory: Clear to auscultation bilaterally. No wheezes, rales, or rhonchi. Good air exchange bilaterally. Abdomen: Soft, nontender, nondistended. Bowel sounds present and normoactive in all 4 quadrants. No hepatosplenomegaly. No abdominal bruits auscultated. No hepatojugular reflux. Genitourinary: No suprapubic or CVA tenderness. Skin: Clean, dry, and intact. No rash. Neuro: Cranial nerves II through XII intact. No focal deficits. Alert and oriented to self and place, but not time. DISCHARGE PLAN BY PROBLEM: 1. UTI due to E. coli with associated bacteremia and elevated troponin due to demand ischemia. The patient is improving greatly on antibiotics. The patient will be planned for 10 total days of antibiotics. She has received 6 days of IV ceftriaxone. We will continue on 4 more days of Ceftin. The patient had no signs of ongoing infection. The patient does not have any concern for hardware infection on any hardware or other area. The patient had hydronephrosis on her abdomen and bladder ultrasound. The patient has a history of stenting, it is unclear what this is related to. This patient's hydronephrosis is possibly inflammation related to her urinary tract infection and she has a history of hydronephrosis on the opposite side in 2018 for which she was stented. The patient has no signs of renal calculi at this time and no ongoing pain that would be worrisome for renal calculi. The patient should follow up with her urologist outpatient for any ongoing concerns. The patient should return to the hospital for high fevers, passing out, or other alarming symptoms. The patient is otherwise doing well. 2. Deconditioning. The patient is deconditioned likely related to her illness for which she came to the hospital and her prolonged hospital stay. The patient will be discharged to subacute rehab for physical therapy and occupational therapy with goal of her returning home, though the patient will likely need more help at home than she previously had been as there were concerns about her medication compliance and safety at home. 3. Seizure disorder. Continue the patient's divalproex. Follow up with Neurology per previous schedule. 4. Hyperlipidemia. Continue with the patient's Lipitor. DISPOSITION: To [facility]. CONDITION: Stable. TIME SPENT: Approximately 60 minutes was spent on the discharge of this patient , 30 of which was spent [id number] with the patient obtaining history and physical and discussing treatment plan. ANNETTE PRIETO [id number]/MARIANA #: [id number] ANJANA
[2019-03-24 16:53] VITALS: BP 123/52
== END 2019-03-24 15:30 | DRG 872 ==
LOC: ED 20:05 → MEDTELE 03-18 06:13
PROVIDERS: ADMIT Hospitalist; ATTEND Internal Medicine
DX: A41.51 Sepsis due to Escherichia coli [E. coli] (principal); N39.0 Urinary tract infection, site not specified; N13.30 Unspecified hydronephrosis; J44.9 Chronic obstructive pulmonary disease, unspecified; I25.9 Chronic ischemic heart disease, unspecified; G40.909 Epilepsy, unspecified, not intractable, without status epilepticus; F03.90 Unspecified dementia, unspecified severity, without behavioral disturbance, psychotic disturbance, mood disturbance, and anxiety; E78.5 Hyperlipidemia, unspecified; F32.9 Major depressive disorder, single episode, unspecified; M81.0 Age-related osteoporosis without current pathological fracture; E87.6 Hypokalemia; B96.20 Unspecified Escherichia coli [E. coli] as the cause of diseases classified elsewhere; F17.210 Nicotine dependence, cigarettes, uncomplicated; R74.9 Abnormal serum enzyme level, unspecified; Z79.1 Long term (current) use of non-steroidal anti-inflammatories (NSAID); Z79.899 Other long term (current) drug therapy
CPT/HCPCS: 36415; 71046; 76770; 80048; 80053; 80164; 81003; 81015; 83605; 83735; 83880; 84484; 85025; 87040; 87077; 87086; 87186; 87205; 93005; 99284; A9270-GY; G8978-GP-CK; G8979-GP-CI; G8987-GO-CJ; G8988-GO-CH; J0696; J1650; J3475; J3480

== ENCOUNTER 2020-05-20 14:39 | Inpatient (IN) ==
[2020-05-20] MEDS ORDERED: NS 0.9% 1000 ml BAG 1,000 ML IV ONE ×2 (14:50→15:33)
[2020-05-20] MEDS ORDERED: Valproic Acid IV 1,500 MG in NS 0.9% 100 ml BAG 100 ML IVPB ONE (14:54)
[2020-05-20 15:02] LABS: ABS Lymphocytes 0.6 10^3/ul (1.0-4.8); ABS Monocytes 0.6 10^3/ul (0-0.8); Hematocrit 42 % (35-47); Hemoglobin 13.8 g/dL (12.0-16.0); Lymphocyte % 5.1 %; Mean Corpuscular HGB Conc 33 g/dL (31-36); Mean Corpuscular Hemoglobin 31 pg (27-31); Mean Corpuscular Volume 94 fL (80-97); Mean Platelet Volume 9.2 fL (7.4-10.4); Platelet Count 252 10^3/uL (150-450); Red Blood Count 4.42 10^6 /uL (3.70-4.87); Red Cell Distribution Width 15 % (10-15); White Blood Count 12.2 10^3/uL (3.5-10.8)
[2020-05-20 15:09] LABS: INR 1.01 (0.82-1.09)
[2020-05-20] MEDS ORDERED: LORazepam 2 mg VIAL 1 ml IV PUSH ONE (15:13)
[2020-05-20] MEDS ORDERED: Lorazepam PYXIS KEY PRN ×2 (15:13→18:57)
[2020-05-20] MEDS ORDERED: Valproic Acid IV 1,000 MG in NS 0.9% 100 ml BAG 100 ML IVPB ONE (15:16)
[2020-05-20 15:22] LABS: ALT 5 U/L (7-52); AST 11 U/L (13-39); Albumin 3.8 g/dL (3.2-5.2); Albumin/Globulin Ratio 1.2 (1-3); Alkaline Phosphatase 48 U/L (34-104); BUN/Creatinine Ratio 9.1 (8-20); Blood Urea Nitrogen 9 mg/dL (6-24); C Reactive Protein < 1.00 mg/L (<8.01); CO2 Carbon Dioxide 22 mmol/L (22-32); Calcium 9.7 mg/dL (8.6-10.3); Chloride 104 mmol/L (101-111); Creatine Kinase 80 U/L (10-223); EGFR African American 66.3 (>60); EGFR Non-African American 54.8 (>60); Globulin 3.2 g/dL (2-4); Glucose 158 mg/dL (70-100); Magnesium 1.4 mg/dL (1.9-2.7); Sodium 138 mmol/L (135-145)
[2020-05-20 15:25] LABS: Anion Gap 12 mmol/L (2-11); Potassium 2.6 mmol/L (3.5-5.0); Troponin I 0.06 ng/mL (<0.03)
[2020-05-20 15:33] LABS: Urine Appearance Clear; Urine Bilirubin Negative (Negative); Urine Blood 1+ (Negative); Urine Color Yellow; Urine Glucose Negative (Negative); Urine Ketones Trace (Negative); Urine Nitrite Negative (Negative); Urine Protein 2+(100 mg/dL) (Negative); Urine Specific Gravity 1.009 (1.010-1.030); Urine Urobilinogen Negative (Negative)
[2020-05-20 15:36] LABS: Urine Bacteria 1+ (Absent); Urine Red Blood Cell 2+(6-10/hpf) (Absent); Urine Squamous Epithelial Cell Present (Absent); Urine White Blood Cell Trace(0-5/hpf) (Absent)
[2020-05-20] MEDS ORDERED: Magnesium Sulfate 2 gm BAG 2 GM/50 ML BAG IVPB ONE (15:38)
[2020-05-20] MEDS: KCL 20 MEQ/100 ML IVPREMIX 20 MEQ/100 ML BAG IV SCH ×4 (16:01→23:54)
[2020-05-20] MEDS ORDERED: levETIRAcetam 1000MG IVPREMIX 1,000 MG/100 ML BAG IVPB ONE (18:01)
[2020-05-20] MEDS ORDERED: Piperacillin/Tazobac ADVAN 3.375 GM in NS 0.9% 100 ml BAG 100 ML IVPB ONE (18:56)
[2020-05-20] MEDS ORDERED: LORazepam 2 mg VIAL 1 ml IV PUSH PRN (18:57)
[2020-05-20] MEDS ORDERED: Iodixanol (CONTRAST) 320 MG/ML 100 ML SDV IV ONE (19:15)
[2020-05-20 19:33] LABS: Influenza A Molecular Negative (Negative); Influenza B Molecular Negative (Negative)
[2020-05-20 19:33] LABS: Troponin I 0.16 ng/mL (<0.03)
[2020-05-20 20:06] LABS: Urine Benzodiazepine Screen Presumptive Positive (None Detect); Urine Cannabinoids Screen None Detected (None Detect); Urine Opiates Screen None Detected (None Detect)
[2020-05-20] MEDS: Azithromycin 500 mg/250 ml NS 500 MG/250 ML BAG IVPB SCH (20:39)
[2020-05-20] MEDS: cefTRIAXone 1 gm/50 mL NS BAG 1 GM/50 ML BAG IVPB SCH (21:00)
[2020-05-20 22:04] LABS: Anion Gap 8 mmol/L (2-11); BUN/Creatinine Ratio 9.3 (8-20); Blood Urea Nitrogen 7 mg/dL (6-24); CO2 Carbon Dioxide 24 mmol/L (22-32); Calcium 8.6 mg/dL (8.6-10.3); Chloride 106 mmol/L (101-111); EGFR African American 91.4 (>60); EGFR Non-African American 75.5 (>60); Glucose 98 mg/dL (70-100); Potassium 4.8 mmol/L (3.5-5.0); Sodium 138 mmol/L (135-145)
[2020-05-20 22:11] LABS: Troponin I 0.21 ng/mL (<0.03)
[2020-05-21] MEDS: cefTRIAXone 1 gm/50 mL NS BAG 1 GM/50 ML BAG IVPB SCH (00:15)
[2020-05-21] MEDS: Lactated Ringers 1000 ml BAG 1,000 ML IV SCH (00:17)
[2020-05-21] MEDS ORDERED: Valproic Acid IV 500 MG in NS 0.9% 100 ML IVPB ONE (04:00)
[2020-05-21] MEDS ORDERED: Piperacillin/Tazobac ADVAN 3.375 GM in NS 0.9% 100 ml BAG 100 ML IV ONE (04:40)
[2020-05-21] MEDS ORDERED: Zosyn per Pharmacy NOTE FOLLOW UP SCH (05:00)
[2020-05-21 05:24] LABS: Hematocrit 38 % (35-47); Hemoglobin 12.5 g/dL (12.0-16.0); Mean Corpuscular HGB Conc 33 g/dL (31-36); Mean Corpuscular Hemoglobin 31 pg (27-31); Mean Corpuscular Volume 94 fL (80-97); Mean Platelet Volume 9.5 fL (7.4-10.4); Platelet Count 194 10^3/uL (150-450); Red Blood Count 3.99 10^6 /uL (3.70-4.87); Red Cell Distribution Width 15 % (10-15); White Blood Count 11.5 10^3/uL (3.5-10.8)
[2020-05-21 05:38] LABS: ALT 4 U/L (7-52); AST 20 U/L (13-39); Albumin 3.4 g/dL (3.2-5.2); Albumin/Globulin Ratio 1.2 (1-3); Alkaline Phosphatase 40 U/L (34-104); Anion Gap 7 mmol/L (2-11); Blood Urea Nitrogen 7 mg/dL (6-24); CO2 Carbon Dioxide 23 mmol/L (22-32); Calcium 8.4 mg/dL (8.6-10.3); Chloride 109 mmol/L (101-111); EGFR African American 87.4 (>60); EGFR Non-African American 72.2 (>60); Globulin 2.8 g/dL (2-4); Glucose 87 mg/dL (70-100); Magnesium 1.6 mg/dL (1.9-2.7); Phosphorus 1.9 mg/dL (2.5-5.0); Potassium 3.8 mmol/L (3.5-5.0); Sodium 139 mmol/L (135-145); Total Protein 6.2 g/dL (6.4-8.9)
[2020-05-21] MEDS ORDERED: Magnesium Sulfate 2 gm BAG 2 GM/50 ML BAG IVPB ONE ×2 (06:02→07:23)
[2020-05-21] MEDS: levETIRAcetam 500 MG IVPREMIX 500 MG/100 ML BAG IV SCH ×2 (06:03→17:18)
[2020-05-21 06:59] LABS: Troponin I 0.16 ng/mL (<0.03)
[2020-05-21] MEDS ORDERED: Potassium Phosphate IV 10 MMOLE in NS 0.9% 250 ml 250 ML IVPB ONE (07:23)
[2020-05-21] MEDS: ZOSYN 3.375 GM Q8H per EXTENDED INFUSION IV SCH ×2 (10:01→17:17)
[2020-05-21] MEDS: Albuterol/Ipratropium NEB.SOL (2.5/0.5 MG) 3 ML NEB.SOLN INH SCH (17:20)
[2020-05-21] MEDS ORDERED: Valproic Acid IV 500 MG in NS 0.9% 100 ml BAG 100 ML IVPB ONE (18:00)
[2020-05-21] MEDS ORDERED: cefTRIAXone 1 gm/50 mL NS BAG 1 GM/50 ML BAG IVPB SCH (21:00)
[2020-05-21] MEDS: Azithromycin 500 mg/250 ml NS 500 MG/250 ML BAG IVPB SCH (21:25)
[2020-05-21] MEDS: Heparin 5000 UNITS/ML 1 mL VIAL SUBCUT SCH (21:49)
[2020-05-22] MEDS: ZOSYN 3.375 GM Q8H per EXTENDED INFUSION IV SCH ×2 (01:46→09:18)
[2020-05-22] MEDS: Albuterol/Ipratropium NEB.SOL (2.5/0.5 MG) 3 ML NEB.SOLN INH SCH ×4 (03:12→20:18)
[2020-05-22] MEDS: Lactated Ringers 1000 ml BAG 1,000 ML IV SCH (05:39)
[2020-05-22] MEDS: levETIRAcetam 500 MG IVPREMIX 500 MG/100 ML BAG IV SCH ×2 (05:39→17:47)
[2020-05-22 05:41] LABS: Hematocrit 40 % (35-47); Hemoglobin 12.9 g/dL (12.0-16.0); Mean Corpuscular HGB Conc 32 g/dL (31-36); Mean Corpuscular Hemoglobin 31 pg (27-31); Mean Corpuscular Volume 95 fL (80-97); Mean Platelet Volume 9.5 fL (7.4-10.4); Platelet Count 190 10^3/uL (150-450); Red Blood Count 4.15 10^6 /uL (3.70-4.87); Red Cell Distribution Width 15 % (10-15); White Blood Count 12.4 10^3/uL (3.5-10.8)
[2020-05-22 06:02] LABS: BUN/Creatinine Ratio 13.2 (8-20); Calcium 8.3 mg/dL (8.6-10.3); EGFR Non-African American 74.4 (>60); Phosphorus 2.4 mg/dL (2.5-5.0)
[2020-05-22] MEDS: Heparin 5000 UNITS/ML 1 mL VIAL SUBCUT SCH ×2 (08:44→20:29)
[2020-05-22] MEDS: cefTRIAXone 1 gm/50 mL NS BAG 1 GM/50 ML BAG IVPB SCH (18:31)
[2020-05-22] MEDS ORDERED: Valproic Acid IV 500 MG in NS 0.9% 100 ml BAG 100 ML IVPB ONE (20:00)
[2020-05-22] MEDS: Azithromycin 500 mg/250 ml NS 500 MG/250 ML BAG IVPB SCH (20:28)
[2020-05-23] MEDS: Albuterol/Ipratropium NEB.SOL (2.5/0.5 MG) 3 ML NEB.SOLN INH SCH ×4 (02:39→19:57)
[2020-05-23] MEDS: levETIRAcetam 500 MG IVPREMIX 500 MG/100 ML BAG IV SCH ×2 (05:57→17:18)
[2020-05-23] MEDS: Heparin 5000 UNITS/ML 1 mL VIAL SUBCUT SCH ×2 (09:20→20:42)
[2020-05-23] MEDS: cefTRIAXone 1 gm/50 mL NS BAG 1 GM/50 ML BAG IVPB SCH (18:33)
[2020-05-23] MEDS: Ampicillin ADVAN 1 GM in NS 0.9% 50 ML 50 ML IVPB SCH (20:40)
[2020-05-23] MEDS: Azithromycin 500 mg/250 ml NS 500 MG/250 ML BAG IVPB SCH (21:20)
[2020-05-24] MEDS: Albuterol/Ipratropium NEB.SOL (2.5/0.5 MG) 3 ML NEB.SOLN INH SCH ×4 (02:09→20:14)
[2020-05-24] MEDS: Ampicillin ADVAN 1 GM in NS 0.9% 50 ML 50 ML IVPB SCH ×4 (02:25→20:41)
[2020-05-24] MEDS: levETIRAcetam 500 MG IVPREMIX 500 MG/100 ML BAG IV SCH (05:26)
[2020-05-24] MEDS: Heparin 5000 UNITS/ML 1 mL VIAL SUBCUT SCH ×2 (08:25→20:41)
[2020-05-24] MEDS: NS 0.9% 50 ML 50 ML ONE ×2 (08:29→13:46)
[2020-05-24] MEDS: Lactated Ringers 1000 ml BAG 1,000 ML IV SCH (08:30)
[2020-05-24 08:34] LABS: BUN/Creatinine Ratio 12.7 (8-20); Calcium 8.6 mg/dL (8.6-10.3); EGFR African American 111.8 (>60); EGFR Non-African American 92.4 (>60); Potassium 3.1 mmol/L (3.5-5.0)
[2020-05-24 09:43] LABS: ABS Monocytes 0.6 10^3/ul (0-0.8); ABS Neutrophils 5.5 10^3/ul (1.5-7.7); Eosinophil % 0.1 %; Hematocrit 44 % (35-47); Hemoglobin 14.4 g/dL (12.0-16.0); Mean Corpuscular HGB Conc 33 g/dL (31-36); Mean Corpuscular Hemoglobin 31 pg (27-31); Mean Corpuscular Volume 95 fL (80-97); Mean Platelet Volume 10.2 fL (7.4-10.4); Platelet Count 177 10^3/uL (150-450); Red Blood Count 4.62 10^6 /uL (3.70-4.87); Red Cell Distribution Width 16 % (10-15); White Blood Count 7.2 10^3/uL (3.5-10.8)
[2020-05-24] MEDS ORDERED: NS 0.9% 50 ML 50 ML ONE (13:41)
[2020-05-24] MEDS: KCL 20 MEQ/100 ML IVPREMIX 20 MEQ/100 ML BAG IV SCH (21:30)
[2020-05-25] MEDS: Albuterol/Ipratropium NEB.SOL (2.5/0.5 MG) 3 ML NEB.SOLN INH SCH ×3 (00:32→14:03)
[2020-05-25] MEDS: KCL 20 MEQ/100 ML IVPREMIX 20 MEQ/100 ML BAG IV SCH ×2 (01:00→02:26)
[2020-05-25] MEDS ORDERED: KCL 20 MEQ/100 ML IVPREMIX 20 MEQ/100 ML BAG IV ONE (02:30)
[2020-05-25] MEDS: Ampicillin ADVAN 1 GM in NS 0.9% 50 ML 50 ML IVPB SCH ×4 (03:57→20:18)
[2020-05-25 06:38] LABS: ABS Lymphocytes 0.8 10^3/ul (1.0-4.8); ABS Monocytes 0.8 10^3/ul (0-0.8); Eosinophil % 0.1 %; Hematocrit 43 % (35-47); Hemoglobin 14.2 g/dL (12.0-16.0); Lymphocyte % 9.8 %; Mean Corpuscular HGB Conc 33 g/dL (31-36); Mean Corpuscular Hemoglobin 31 pg (27-31); Mean Corpuscular Volume 94 fL (80-97); Nucleated Red Blood Cells % 0.1; Platelet Count 287 10^3/uL (150-450); Red Blood Count 4.58 10^6 /uL (3.70-4.87); Red Cell Distribution Width 15 % (10-15); White Blood Count 8.7 10^3/uL (3.5-10.8)
[2020-05-25 06:53] LABS: BUN/Creatinine Ratio 17.3 (8-20); Calcium 9.1 mg/dL (8.6-10.3); EGFR African American 83.6 (>60); EGFR Non-African American 69.1 (>60); Magnesium 1.4 mg/dL (1.9-2.7); Potassium 4.4 mmol/L (3.5-5.0)
[2020-05-25] MEDS: Heparin 5000 UNITS/ML 1 mL VIAL SUBCUT SCH ×2 (08:07→22:49)
[2020-05-25] MEDS ORDERED: Magnesium Sulf 4 GM/100 ML IV 4,000 MG/100 ML BAG IVPB ONE (09:00)
[2020-05-25] MEDS: Lactated Ringers 1000 ml BAG 1,000 ML IV SCH (14:30)
[2020-05-25 18:30] LABS: Troponin I 0.03 ng/mL (<0.03)
[2020-05-25 21:45] LABS: Troponin I 0.03 ng/mL (<0.03)
[2020-05-25] MEDS ORDERED: Lactated Ringers 1000 ml BAG 1,000 ML IV SCH (22:00)
[2020-05-26 00:55] LABS: Anion Gap 10 mmol/L (2-11); BUN/Creatinine Ratio 16.3 (8-20); Blood Urea Nitrogen 15 mg/dL (6-24); CO2 Carbon Dioxide 19 mmol/L (22-32); Calcium 9.3 mg/dL (8.6-10.3); Chloride 106 mmol/L (101-111); EGFR African American 72.2 (>60); EGFR Non-African American 59.7 (>60); Glucose 158 mg/dL (70-100); Magnesium 2.3 mg/dL (1.9-2.7); Potassium 4.3 mmol/L (3.5-5.0); Sodium 135 mmol/L (135-145)
[2020-05-26] MEDS: Ampicillin ADVAN 1 GM in NS 0.9% 50 ML 50 ML IVPB SCH ×4 (02:03→21:25)
[2020-05-26 06:26] LABS: ABS Lymphocytes 0.9 10^3/ul (1.0-4.8); ABS Monocytes 0.9 10^3/ul (0-0.8); ABS Neutrophils 7.5 10^3/ul (1.5-7.7); Eosinophil % 0.1 %; Hematocrit 41 % (35-47); Hemoglobin 13.7 g/dL (12.0-16.0); Lymphocyte % 9.7 %; Mean Corpuscular HGB Conc 34 g/dL (31-36); Mean Corpuscular Hemoglobin 32 pg (27-31); Mean Corpuscular Volume 94 fL (80-97); Mean Platelet Volume 9.5 fL (7.4-10.4); Platelet Count 303 10^3/uL (150-450); Red Blood Count 4.34 10^6 /uL (3.70-4.87); Red Cell Distribution Width 16 % (10-15); White Blood Count 9.3 10^3/uL (3.5-10.8)
[2020-05-26 06:44] LABS: Calcium 8.8 mg/dL (8.6-10.3); EGFR African American 83.6 (>60); EGFR Non-African American 69.1 (>60); Potassium 4.2 mmol/L (3.5-5.0)
[2020-05-26] MEDS: Heparin 5000 UNITS/ML 1 mL VIAL SUBCUT SCH ×2 (09:03→21:27)
[2020-05-26 16:34] LABS: Hepatitis B Surface Antigen Nonreactive (Nonreactive)
[2020-05-26 16:39] LABS: Hepatitis A Ab IgM Negative (Negative)
[2020-05-26 16:40] LABS: Hepatitis B Core IgM Nonreactive (Nonreactive)
[2020-05-26 16:51] LABS: Hepatitis C Antibody Negative (Negative)
[2020-05-26 17:11] LABS: C Reactive Protein 8.05 mg/L (<8.01)
[2020-05-26] MEDS ORDERED: Lactated Ringers 1000 ml BAG 1,000 ML IV ONE (17:43)
[2020-05-26] MEDS ORDERED: Labetalol IV 5 MG/ML 20 ml VIAL IV PUSH ONE (21:06)
[2020-05-27] MEDS: Ampicillin ADVAN 1 GM in NS 0.9% 50 ML 50 ML IVPB SCH ×4 (03:08→21:25)
[2020-05-27] MEDS: Heparin 5000 UNITS/ML 1 mL VIAL SUBCUT SCH ×2 (10:11→21:22)
[2020-05-27] MEDS: Nystatin TOP POWDER 15 GM BTL TOPICAL SCH ×3 (12:04→21:22)
[2020-05-27 12:06] LABS: ABS Monocytes 0.9 10^3/ul (0-0.8); ABS Neutrophils 6.6 10^3/ul (1.5-7.7); Eosinophil % 0.2 %; Hematocrit 39 % (35-47); Hemoglobin 12.9 g/dL (12.0-16.0); Lymphocyte % 11.3 %; Mean Corpuscular HGB Conc 33 g/dL (31-36); Mean Corpuscular Hemoglobin 31 pg (27-31); Mean Corpuscular Volume 94 fL (80-97); Nucleated Red Blood Cells % 0.1; Platelet Count 321 10^3/uL (150-450); Red Blood Count 4.12 10^6 /uL (3.70-4.87); Red Cell Distribution Width 15 % (10-15); White Blood Count 8.5 10^3/uL (3.5-10.8)
[2020-05-27 12:28] LABS: Albumin 3.1 g/dL (3.2-5.2); Albumin/Globulin Ratio 1.1 (1-3); BUN/Creatinine Ratio 25.4 (8-20); EGFR African American 104.1 (>60); Globulin 2.8 g/dL (2-4); Potassium 4.2 mmol/L (3.5-5.0); Total Bilirubin 0.3 mg/dL (0.2-1.0); Total Protein 5.9 g/dL (6.4-8.9)
[2020-05-27] MEDS: NS 0.9% 1000 ml BAG 1,000 ML IV SCH (14:09)
[2020-05-28] MEDS: Ampicillin ADVAN 1 GM in NS 0.9% 50 ML 50 ML IVPB SCH ×4 (02:23→19:49)
[2020-05-28 06:03] LABS: Hematocrit 38 % (35-47); Hemoglobin 12.2 g/dL (12.0-16.0); Mean Corpuscular HGB Conc 32 g/dL (31-36); Mean Corpuscular Hemoglobin 31 pg (27-31); Mean Corpuscular Volume 97 fL (80-97); Mean Platelet Volume 8.9 fL (7.4-10.4); Platelet Count 270 10^3/uL (150-450); Red Blood Count 3.91 10^6 /uL (3.70-4.87); Red Cell Distribution Width 16 % (10-15); White Blood Count 6.7 10^3/uL (3.5-10.8)
[2020-05-28 07:11] LABS: Calcium 8.4 mg/dL (8.6-10.3); Potassium 4.1 mmol/L (3.5-5.0)
[2020-05-28 07:17] LABS: EGFR African American 102.3 (>60); EGFR Non-African American 84.6 (>60)
[2020-05-28] MEDS: Heparin 5000 UNITS/ML 1 mL VIAL SUBCUT SCH ×2 (08:27→22:28)
[2020-05-28] MEDS: Nystatin TOP POWDER 15 GM BTL TOPICAL SCH ×3 (08:28→22:34)
[2020-05-28 09:09] LABS: ABS Basophils 0.1 10^3/ul (0-0.2); ABS Eosinophils 0.1 10^3/ul (0-0.6); ABS Lymphocytes 1.3 10^3/ul (1.0-4.8); ABS Monocytes 0.6 10^3/ul (0-0.8); ABS Neutrophils 4.7 10^3/ul (1.5-7.7); Lymphocyte % 19.1 %; Nucleated Red Blood Cells % 0.1
[2020-05-28] MEDS: NS 0.9% 1000 ml BAG 1,000 ML IV SCH (19:49)
[2020-05-29] MEDS: Nystatin TOP POWDER 15 GM BTL TOPICAL SCH ×3 (09:57→21:35)
[2020-05-29] MEDS: Heparin 5000 UNITS/ML 1 mL VIAL SUBCUT SCH ×2 (09:57→21:35)
[2020-05-30] MEDS: Nystatin TOP POWDER 15 GM BTL TOPICAL SCH ×3 (08:23→20:49)
[2020-05-30] MEDS: Heparin 5000 UNITS/ML 1 mL VIAL SUBCUT SCH ×2 (08:47→20:49)
[2020-05-31] MEDS: Heparin 5000 UNITS/ML 1 mL VIAL SUBCUT SCH ×2 (09:29→21:46)
[2020-05-31] MEDS: Nystatin TOP POWDER 15 GM BTL TOPICAL SCH ×3 (09:31→21:46)
[2020-06-01] MEDS: Heparin 5000 UNITS/ML 1 mL VIAL SUBCUT SCH ×2 (09:36→21:10)
[2020-06-01] MEDS ORDERED: Gadoteridol (CONTRAST) 279.3 MG/ML 10 ML IV ONE (14:21)
[2020-06-01] MEDS: Nystatin TOP POWDER 15 GM BTL TOPICAL SCH ×3 (16:32→21:12)
[2020-06-02] MEDS: Heparin 5000 UNITS/ML 1 mL VIAL SUBCUT SCH ×2 (08:31→21:23)
[2020-06-02] MEDS: Nystatin TOP POWDER 15 GM BTL TOPICAL SCH ×3 (08:48→22:13)
[2020-06-03 08:07] VITALS: BP 117/53
[2020-06-03] MEDS: Heparin 5000 UNITS/ML 1 mL VIAL SUBCUT SCH (08:38)
[2020-06-03] MEDS: Nystatin TOP POWDER 15 GM BTL TOPICAL SCH (08:38)
== END 2020-06-03 11:00 | DRG 871 ==
LOC: ED 14:39 → ICU 18:53 → SSU 05-22 13:08
PROVIDERS: ADMIT Internal Medicine; ATTEND Internal Medicine

== ENCOUNTER 2020-11-06 05:01 | Inpatient (IN) ==
[2020-11-06] MEDS ORDERED: NS 0.9% 1000 ml BAG 1,000 ML IV ONE (05:04)
[2020-11-06 05:47] LABS: ABS Lymphocytes 1.2 10^3/ul (1.0-4.8); ABS Monocytes 1.4 10^3/ul (0-0.8); ABS Neutrophils 12.1 10^3/ul (1.5-7.7); Hematocrit 47 % (35-47); Hemoglobin 15.1 g/dL (12.0-16.0); Lymphocyte % 7.9 %; Mean Corpuscular HGB Conc 32 g/dL (31-36); Mean Corpuscular Hemoglobin 30 pg (27-31); Mean Corpuscular Volume 93 fL (80-97); Mean Platelet Volume 9.3 fL (7.4-10.4); Nucleated Red Blood Cells % 0.1; Platelet Count 447 10^3/uL (150-450); Red Blood Count 5.02 10^6 /uL (3.70-4.87); Red Cell Distribution Width 14 % (10-15); White Blood Count 14.7 10^3/uL (3.5-10.8)
[2020-11-06 05:54] LABS: INR 1.33 (0.82-1.09)
[2020-11-06 06:06] LABS: Acetaminophen < 15 mcg/mL
[2020-11-06 06:08] LABS: ALT 18 U/L (7-52); AST 23 U/L (13-39); Albumin 3.2 g/dL (3.2-5.2); Albumin/Globulin Ratio 0.8 (1-3); Alkaline Phosphatase 86 U/L (34-104); Anion Gap 12 mmol/L (2-11); Blood Urea Nitrogen 64 mg/dL (6-24); CO2 Carbon Dioxide 22 mmol/L (22-32); Calcium 9.9 mg/dL (8.6-10.3); Chloride 109 mmol/L (101-111); Creatine Kinase 579 U/L (10-223); EGFR African American 37.5 (>60); Globulin 4.2 g/dL (2-4); Glucose 126 mg/dL (70-100); Magnesium 2.3 mg/dL (1.9-2.7); Potassium 4.4 mmol/L (3.5-5.0); Sodium 143 mmol/L (135-145); Total Protein 7.4 g/dL (6.4-8.9)
[2020-11-06 06:19] LABS: Troponin I 0.05 ng/mL (<0.03)
[2020-11-06 06:23] LABS: TSH Ultra Thyroid Stim Horm 1.26 mcIU/mL (0.34-5.60)
[2020-11-06 06:45] LABS: Urine Appearance Turbid; Urine Bilirubin Negative (Negative); Urine Blood 2+ (Negative); Urine Color Yellow; Urine Glucose Negative (Negative); Urine Ketones Negative (Negative); Urine Nitrite Negative (Negative); Urine Protein 2+(100 mg/dL) (Negative); Urine Specific Gravity 1.019 (1.002-1.030); Urine Urobilinogen Negative (Negative)
[2020-11-06 06:49] LABS: Urine Bacteria 3+ (Absent); Urine Red Blood Cell 3+(>10/hpf) (Absent); Urine White Blood Cell 3+(>20/hpf) (Absent)
[2020-11-06] MEDS ORDERED: cefTRIAXone 1 gm/50 mL NS BAG 1 GM/50 ML BAG IV ONE (06:58)
[2020-11-06] MEDS ORDERED: NS 0.9% 500 ml BAG 500 ML IV ONE (08:02)
[2020-11-06] MEDS: NS 0.9% 1000 ml BAG 1,000 ML IV SCH ×3 (08:57→20:50)
[2020-11-06 09:39] LABS: Troponin I 0.05 ng/mL (<0.03)
[2020-11-06] MEDS: Enoxaparin 30 MG/0.3 ML SYR SUBCUT SCH (11:09)
[2020-11-06 13:03] LABS: Troponin I 0.04 ng/mL (<0.03)
[2020-11-06 15:33] LABS: Troponin I 0.03 ng/mL (<0.03)
[2020-11-07 05:13] LABS: ABS Lymphocytes 1.2 10^3/ul (1.0-4.8); ABS Monocytes 1.1 10^3/ul (0-0.8); ABS Neutrophils 7.2 10^3/ul (1.5-7.7); Hematocrit 36 % (35-47); Hemoglobin 11.7 g/dL (12.0-16.0); Lymphocyte % 12.9 %; Mean Corpuscular HGB Conc 32 g/dL (31-36); Mean Corpuscular Hemoglobin 30 pg (27-31); Mean Corpuscular Volume 93 fL (80-97); Mean Platelet Volume 9.1 fL (7.4-10.4); Platelet Count 329 10^3/uL (150-450); Red Blood Count 3.88 10^6 /uL (3.70-4.87); Red Cell Distribution Width 14 % (10-15); White Blood Count 9.6 10^3/uL (3.5-10.8)
[2020-11-07 05:33] LABS: Calcium 8.4 mg/dL (8.6-10.3); EGFR African American 91.2 (>60); EGFR Non-African American 75.3 (>60); Potassium 3.7 mmol/L (3.5-5.0)
[2020-11-07] MEDS: Enoxaparin 30 MG/0.3 ML SYR SUBCUT SCH (08:38)
[2020-11-07] MEDS: NS 0.9% 1000 ml BAG 1,000 ML IV SCH ×2 (08:50→21:44)
[2020-11-07] MEDS: cefTRIAXone 1 gm/50 mL NS BAG 1 GM/50 ML BAG IVPB SCH (08:52)
[2020-11-08 05:56] LABS: Hematocrit 20 % (35-47); Hemoglobin 6.5 g/dL (12.0-16.0); Mean Corpuscular HGB Conc 32 g/dL (31-36); Mean Corpuscular Hemoglobin 31 pg (27-31); Mean Corpuscular Volume 96 fL (80-97); Mean Platelet Volume 8.6 fL (7.4-10.4); Platelet Count 197 10^3/uL (150-450); Red Cell Distribution Width 15 % (10-15); White Blood Count 5.2 10^3/uL (3.5-10.8)
[2020-11-08 06:19] LABS: ABS Lymphocytes 0.8 10^3/ul (1.0-4.8); ABS Monocytes 0.5 10^3/ul (0-0.8); ABS Neutrophils 3.8 10^3/ul (1.5-7.7); ABS Nucleated RBC 0.1 10^3/ul; Eosinophil % 0.1 %; Lymphocyte % 16.3 %
[2020-11-08 07:16] LABS: ABS Lymphocytes 1.4 10^3/ul (1.0-4.8); ABS Monocytes 0.9 10^3/ul (0-0.8); ABS Neutrophils 6.3 10^3/ul (1.5-7.7); Eosinophil % 0.1 %; Hematocrit 34 % (35-47); Hemoglobin 11.4 g/dL (12.0-16.0); Lymphocyte % 16.4 %; Mean Corpuscular HGB Conc 33 g/dL (31-36); Mean Corpuscular Hemoglobin 30 pg (27-31); Mean Corpuscular Volume 92 fL (80-97); Mean Platelet Volume 8.9 fL (7.4-10.4); Platelet Count 350 10^3/uL (150-450); Red Blood Count 3.74 10^6 /uL (3.70-4.87); Red Cell Distribution Width 15 % (10-15); White Blood Count 8.7 10^3/uL (3.5-10.8)
[2020-11-08 07:59] LABS: Albumin 2.4 g/dL (3.2-5.2); Albumin/Globulin Ratio 0.8 (1-3); C Reactive Protein 43.59 mg/L (<8.01); Calcium 8.8 mg/dL (8.6-10.3); EGFR African American 117.9 (>60); EGFR Non-African American 97.5 (>60); Globulin 3.2 g/dL (2-4); Total Bilirubin 0.2 mg/dL (0.2-1.0); Total Protein 5.6 g/dL (6.4-8.9)
[2020-11-08] MEDS: cefTRIAXone 1 gm/50 mL NS BAG 1 GM/50 ML BAG IVPB SCH (08:04)
[2020-11-08] MEDS: Enoxaparin 30 MG/0.3 ML SYR SUBCUT SCH (08:05)
[2020-11-08] MEDS: NS 0.9% 1000 ml BAG 1,000 ML IV SCH ×3 (08:05→22:42)
[2020-11-09 04:54] LABS: ABS Lymphocytes 1.8 10^3/ul (1.0-4.8); ABS Monocytes 0.8 10^3/ul (0-0.8); ABS Neutrophils 5.2 10^3/ul (1.5-7.7); Eosinophil % 0.4 %; Hematocrit 34 % (35-47); Lymphocyte % 23.5 %; Mean Corpuscular HGB Conc 33 g/dL (31-36); Mean Corpuscular Hemoglobin 30 pg (27-31); Mean Corpuscular Volume 93 fL (80-97); Mean Platelet Volume 8.8 fL (7.4-10.4); Nucleated Red Blood Cells % 0.1; Platelet Count 358 10^3/uL (150-450); Red Blood Count 3.63 10^6 /uL (3.70-4.87); Red Cell Distribution Width 14 % (10-15); White Blood Count 7.8 10^3/uL (3.5-10.8)
[2020-11-09] MEDS: Enoxaparin 30 MG/0.3 ML SYR SUBCUT SCH (07:42)
[2020-11-09] MEDS: cefTRIAXone 1 gm/50 mL NS BAG 1 GM/50 ML BAG IVPB SCH (07:42)
[2020-11-09] MEDS: NS 0.9% 1000 ml BAG 1,000 ML IV SCH (12:43)
[2020-11-09] MEDS ORDERED: Lorazepam PYXIS KEY PRN (15:35)
[2020-11-09] MEDS ORDERED: LORazepam 2 mg VIAL 1 ml IV PUSH ONE (15:36)
[2020-11-09 16:17] LABS: Albumin 2.4 g/dL (3.4-4.7); Albumin/Globulin Ratio 0.54; Gamma Globulin 1.5 g/dL (0.6-1.6); Total Protein(PEP) 6.8 g/dL (6.3 - 7.9)
[2020-11-09] MEDS: Ampicillin ADVAN 1 GM in NS 0.9% 50 ML 50 ML IVPB SCH (20:56)
[2020-11-10] MEDS: NS 0.9% 1000 ml BAG 1,000 ML IV SCH ×2 (01:23→16:47)
[2020-11-10] MEDS: Ampicillin ADVAN 1 GM in NS 0.9% 50 ML 50 ML IVPB SCH ×4 (01:57→22:19)
[2020-11-10 05:53] LABS: ABS Eosinophils 0.1 10^3/ul (0-0.6); ABS Lymphocytes 1.6 10^3/ul (1.0-4.8); ABS Monocytes 0.7 10^3/ul (0-0.8); ABS Neutrophils 5.9 10^3/ul (1.5-7.7); Eosinophil % 1.4 %; Hematocrit 35 % (35-47); Hemoglobin 11.3 g/dL (12.0-16.0); Lymphocyte % 19.2 %; Mean Corpuscular HGB Conc 33 g/dL (31-36); Mean Corpuscular Hemoglobin 30 pg (27-31); Mean Corpuscular Volume 93 fL (80-97); Mean Platelet Volume 8.9 fL (7.4-10.4); Platelet Count 390 10^3/uL (150-450); Red Blood Count 3.72 10^6 /uL (3.70-4.87); Red Cell Distribution Width 15 % (10-15); White Blood Count 8.3 10^3/uL (3.5-10.8)
[2020-11-10 06:21] LABS: C Reactive Protein 30.67 mg/L (<8.01); Calcium 8.1 mg/dL (8.6-10.3); EGFR Non-African American 147.1 (>60); Magnesium 1.4 mg/dL (1.9-2.7); Potassium 3.5 mmol/L (3.5-5.0)
[2020-11-10] MEDS ORDERED: Magnesium Sulf 4 GM/100 ML IV 4,000 MG/100 ML BAG IVPB ONE (09:00)
[2020-11-10] MEDS: Enoxaparin 30 MG/0.3 ML SYR SUBCUT SCH (09:28)
[2020-11-11] MEDS: Ampicillin ADVAN 1 GM in NS 0.9% 50 ML 50 ML IVPB SCH ×4 (02:27→20:00)
[2020-11-11 06:04] LABS: Calcium 7.9 mg/dL (8.6-10.3); EGFR African American 168.7 (>60); EGFR Non-African American 139.4 (>60); Potassium 3.8 mmol/L (3.5-5.0)
[2020-11-11] MEDS: Enoxaparin 30 MG/0.3 ML SYR SUBCUT SCH (08:22)
[2020-11-11] MEDS ORDERED: Potassium Chlor 20 meq TAB.ER PO ONE (08:35)
[2020-11-12] MEDS: Ampicillin ADVAN 1 GM in NS 0.9% 50 ML 50 ML IVPB SCH ×2 (01:33→08:38)
[2020-11-12] MEDS: NS 0.9% 1000 ml BAG 1,000 ML IV SCH (06:29)
[2020-11-12 06:43] LABS: ABS Eosinophils 0.3 10^3/ul (0-0.6); ABS Lymphocytes 1.6 10^3/ul (1.0-4.8); ABS Monocytes 0.6 10^3/ul (0-0.8); ABS Neutrophils 3.9 10^3/ul (1.5-7.7); Eosinophil % 4.2 %; Hematocrit 30 % (35-47); Hemoglobin 9.6 g/dL (12.0-16.0); Mean Corpuscular HGB Conc 32 g/dL (31-36); Mean Corpuscular Hemoglobin 30 pg (27-31); Mean Corpuscular Volume 92 fL (80-97); Mean Platelet Volume 8.7 fL (7.4-10.4); Platelet Count 387 10^3/uL (150-450); Red Blood Count 3.21 10^6 /uL (3.70-4.87); Red Cell Distribution Width 14 % (10-15); White Blood Count 6.4 10^3/uL (3.5-10.8)
[2020-11-12 06:58] LABS: Calcium 7.9 mg/dL (8.6-10.3); EGFR African American 212.6 (>60); EGFR Non-African American 175.7 (>60); Magnesium 1.6 mg/dL (1.9-2.7); Potassium 3.9 mmol/L (3.5-5.0)
[2020-11-12] MEDS: Enoxaparin 30 MG/0.3 ML SYR SUBCUT SCH (08:38)
[2020-11-12] MEDS ORDERED: Magnesium Sulfate IV 3 GM in NS 0.9% 100 ml BAG 100 ML IVPB ONE (09:30)
[2020-11-12 11:47] VITALS: BP 118/53
== END 2020-11-12 15:50 | DRG 871 ==
LOC: ED 05:01 → MEDTELE 09:31 → MED 11-11 13:37
PROVIDERS: ADMIT Internal Medicine; ATTEND Internal Medicine